=== PATIENT | female | born 1945 | race Caucasian/White ===

== ENCOUNTER → 2016-10-06 | Outpatient (REF) | payer OTHER ==
[~2016-10-06] MED LIST: /ALEN7SOL PO; /SUCR1TA PO; ALPR0.5T3 PO; AMOX500C; ASPI81TA31 OR; ATEN25TA PO; BABY81CH; BUTRANS TD; CALCIUM WITH VIT D; CALCIUM WITH VIT D PO; CHLO0.12 MT; CLOTPOW; EVOXAC; EVOXAC PO; FENT25DI22 TD; FERR324T5 PO; FIBEPOW PO; FOLI1TAB PO; FORT600S SC; GLUCOSAMINE PO; HYDR25TA6 PO; MAALOX PO; MELO7.5T3 PO; METH2.5T PO; MISOPROSTOL PO; MULTIVIT PO; NABU750T PO; NEUR300C OR; OMEGA 3 PO; OMEP20TA7; OXYB5TAB PO; PRESERVISION PO; PRIL20CA PO; SERT50TA2; SIMV40TA2; STOO100C PO; TYLE325T5 PO; VICO5TAB PO; VITA200028 PO; VITAMIN C PO; XANA0.25 PO; ZOCO40TA PO; ZOLO100T PO; [UNRECOGNIZED DRUG - OTHER]
[2016-10-06 20:37] LABS: ALBUMIN 3.7 GM/DL (3.2-5.2); CALCIUM LEVEL 8.4 MG/DL (8.8-10.2); CREATININE FOR GFR 0.98 MG/DL (0.55-1.02); GLOMERULAR FILTRATION RATE 59.4 (>39); MAGNESIUM LEVEL 2.3 MG/DL (1.8-2.4); POTASSIUM SERUM 4.2 MEQ/L (3.5-5.1)
== END ==
LOC: M LAB REF 17:24
PROVIDERS: ATTEND Physician Assistant
DX: I50.32 Chronic diastolic (congestive) heart failure (principal); I48.0 Paroxysmal atrial fibrillation

== ENCOUNTER → 2016-10-07 | Outpatient (CLI) | payer MEDICARE ==
--- NOTE | 2016-10-07 13:09 | REP ---
CHEST, TWO VIEWS: HISTORY: Hypertension. COMPARISON: 12/21/2013. An increase in interstitial markings is present in the lungs. A small area of atelectasis or infiltrate is present in the right upper lobe. The cardiac silhouette is enlarged. The pulmonary vasculature is prominent. A small hiatal hernia is present. The bony structure is intact. Two prosthetic heart valves are present. IMPRESSION: 1. Findings consistent with congestive heart failure. 2. There is a small area of atelectasis or infiltrate in the right upper lobe. 3. Small hiatal hernia.
== END ==
LOC: M CLY 11:19
PROVIDERS: ATTEND Family Medicine
DX: J98.11 Atelectasis (principal); K44.9 Diaphragmatic hernia without obstruction or gangrene; M06.9 Rheumatoid arthritis, unspecified; I10 Essential (primary) hypertension; R30.0 Dysuria
CPT/HCPCS: 71020; 81002; 87088; 87186; G0463

== ENCOUNTER → 2016-10-07 | Outpatient (CLI) | payer MEDICARE | LOC: M CLY 11:26 | PROVIDERS: ATTEND Family Medicine | DX: J06.9 Acute upper respiratory infection, unspecified (principal); I10 Essential (primary) hypertension ==

== ENCOUNTER → 2016-10-07 | Outpatient (REF) | payer MEDICARE | LOC: M SFHCCLAY 11:07 | PROVIDERS: ATTEND Family Medicine | DX: M06.9 Rheumatoid arthritis, unspecified (principal); I10 Essential (primary) hypertension; R30.0 Dysuria ==

== ENCOUNTER → 2016-10-14 | Outpatient (CLI) | payer MEDICARE | LOC: M CARPUL 09:59 | PROVIDERS: ATTEND Family Medicine | DX: M06.9 Rheumatoid arthritis, unspecified (principal) ==

== ENCOUNTER → 2016-10-22 | Outpatient (REF) | payer MEDICARE ==
[2016-10-22 18:26] LABS: ALBUMIN 3.8 GM/DL (3.2-5.2); CREATININE FOR GFR 1.08 MG/DL (0.55-1.02); GLOMERULAR FILTRATION RATE 53.1 (>39)
[2016-10-22 18:45] LABS: BASO % 0.3 % (0.0-1.0); EOS # 0.2 K/mm3 (0.0-0.50); EOS % 1.9 % (0.0-3.0); LYMPH # 0.7 K/mm3 (1.5-4.5); LYMPH % 8.9 % (24.0-44.0); MEAN CORPUSCULAR HEMOGLOBIN 31.4 pg (27.0-33.0); MEAN CORPUSCULAR HGB CONC 32.9 g/dl (32.0-36.5); MEAN CORPUSCULAR VOLUME 95.3 fl (80.0-96.0); MONO # 0.3 K/mm3 (0.0-0.8); MONO % 4.1 % (0.0-5.0); NEUTROPHILS # 6.8 K/mm3 (1.8-7.7); NEUTROPHILS % 83.5 % (36.0-66.0); RED CELL DISTRIBUTION WIDTH 13.5 % (11.5-14.5); WHITE BLOOD COUNT 8.2 K/mm3 (4.0-10.0)
== END ==
LOC: M LABDRAWC 16:16
PROVIDERS: ATTEND Physician Assistant Medical
DX: M05.79 Rheumatoid arthritis with rheumatoid factor of multiple sites without organ or systems involvement (principal); J18.9 Pneumonia, unspecified organism; G89.29 Other chronic pain
CPT/HCPCS: 36415; 80048; 82040; 82565; 84075; 84450; 84460; 84520; 85027; 85652; 86140; G0463

== ENCOUNTER → 2016-10-22 | Outpatient (REF) | payer MEDICARE ==
[2016-10-22 18:23] LABS: CALCIUM LEVEL 9.1 MG/DL (8.8-10.2); CREATININE FOR GFR 1.1 MG/DL (0.55-1.02); POTASSIUM SERUM 4.3 MEQ/L (3.5-5.1)
== END ==
LOC: M SFHCCLAY 16:14
PROVIDERS: ATTEND Family Medicine
DX: J18.9 Pneumonia, unspecified organism (principal)

== ENCOUNTER → 2016-11-05 | Outpatient (CLI) | payer MEDICARE ==
--- NOTE | 2016-11-05 13:11 | REP ---
Chest x-ray: Two views. History: Right lung pneumonia. Follow-up. Comparison study October 07, 2016. Findings: The previously noted right upper lobe infiltrate is improved. There is still some consolidation. There is slight blunting of the right lateral pleural angle unchanged. The patient is status post aortic and mitral valve replacement via median sternotomy. A hiatal hernia is again noted behind the heart. Mild cardiomegaly is observed. No infiltrate is noted on the left. A scoliotic curve is seen in the thoracic spine as before. Impression: Recently identified right upper lobe infiltrate is improved but not completely resolved radiographically. No new infiltrate is seen. The patient is status post cardiac valve replacement times two. Hiatal hernia.
== END ==
LOC: M CLY 11:15
PROVIDERS: ATTEND Family Medicine
DX: J18.9 Pneumonia, unspecified organism (principal); K44.9 Diaphragmatic hernia without obstruction or gangrene

== ENCOUNTER → 2016-12-02 | Outpatient (CLI) | payer MEDICARE ==
--- NOTE | 2016-12-02 10:37 | REP ---
Chest x-ray: Two views. History: Pneumonia on the right. Comparison study November 05, 2016. Findings: Patient is status post prior median sternotomy and coronary artery valve replacement. Hiatal hernia is seen behind the heart unchanged. Heart is not felt to be enlarged. Right hemidiaphragm is again noted to be somewhat elevated. There is coarse linear opacity in the right upper perihilar region and some linear fibrosis is seen in the right base and in the left base. These findings are unchanged. No new infiltrate is seen. Impression: No new infiltrate noted.
== END ==
LOC: M CLY 09:29
PROVIDERS: ATTEND Family Medicine
DX: J18.9 Pneumonia, unspecified organism (principal)
CPT/HCPCS: 71020; G0463

== ENCOUNTER → 2017-01-25 | Outpatient (REF) | payer MEDICARE ==
[2017-01-25 17:20] LABS: ALBUMIN 3.8 GM/DL (3.2-5.2); CALCIUM LEVEL 8.8 MG/DL (8.8-10.2); CREATININE FOR GFR 1.33 MG/DL (0.55-1.02); GLOMERULAR FILTRATION RATE 41.7 (>39); MAGNESIUM LEVEL 2.3 MG/DL (1.8-2.4); PHOSPHORUS LEVEL 4.3 MG/DL (2.5-4.9); POTASSIUM SERUM 4.2 MEQ/L (3.5-5.1)
== END ==
LOC: M LABDRAWC 16:34
PROVIDERS: ATTEND Physician Assistant
DX: I50.32 Chronic diastolic (congestive) heart failure (principal); I48.0 Paroxysmal atrial fibrillation

== ENCOUNTER → 2017-02-10 | Outpatient (CLI) | payer MEDICARE ==
[~2017-02-10] MED LIST changes: +ASPI81TA7 PO; +CALCCHW8 PO; +FIBE1CHW2 PO; +FOLI1TAB2 PO; +FURO1TAB15 PO; +GABA-279 PO; +HYDR-3713 PO; +HYDR200T3 PO; +LEUC5TA PO; +METH2.5TA PO; +MULTCAP11 PO; +OMEG340C PO; +OMEP40CA2 PO; +OXYB5TA PO; +PRESCAP PO; +SERT-138 PO; +VITA10006 PO
[2017-02-10 13:54] LABS: CALCIUM LEVEL 8.6 MG/DL (8.8-10.2); CREATININE FOR GFR 1.07 MG/DL (0.55-1.02); GLOMERULAR FILTRATION RATE 53.7 (>39); POTASSIUM SERUM 4.4 MEQ/L (3.5-5.1)
--- NOTE | 2017-02-10 15:00 | REP ---
Chest x-ray: Two views. History: Hypertension. CHF. Comparison chest x-ray: December 02, 2016. Findings: There is somewhat ill-defined linear density in the right upper perihilar region which is unchanged from the comparison radiograph as well as from a prior study of November 05, 2016. This may reflect pleuroparenchymal fibrosis. There is some fullness in the right paratracheal soft tissues also unchanged from prior studies dating back to December of 2013. The right hemidiaphragm is somewhat elevated and there is some linear fibrosis in each lung base. There is evidence of a moderate size hiatal hernia. The patient is status post prior median sternotomy and aortic as well as mitral valve prosthetic, components appear to be installed. Heart is mildly enlarged unchanged. There is no free pleural effusion seen. Impression: Prior sternotomy and cardiac valve replacement. Mild cardiomegaly. Hiatal hernia. Left base fibrosis right base pleuroparenchymal fibrosis. Right upper perihilar fibrosis seen. Signed by Burton Duarte MD 02/10/2017 04:35 P
--- NOTE | 2017-02-11 19:54 | ECGEPIP ---
Stationary ECG Study [facility] Test Date: 2017-02-10 Pat Name: TITO ERAZO Department: Room: - Gender: F Hog Room Supervisor: KALPANA : [id number] Requested By: Yvon Velazco Order Number: [id number] Reading MD: Ene Trotter Measurements Intervals [place] Rate: 80 P: 62 ME: 148 QRS: 33 QRSD: 88 T: 34 QT: 380 QTc: 440 Interpretive Statements SINUS RHYTHM LEFT ATRIAL ENLARGEMENT NONSPECIFIC T-WAVE ABNORMALITY SIMILAR 06/02/13 Electronically Signed On 02-11-2017 19:54:25 EDT by Ene Trotter
== END ==
LOC: M LAB 11:54
PROVIDERS: ATTEND Ophthalmology
DX: I50.9 Heart failure, unspecified (principal); I10 Essential (primary) hypertension

== ENCOUNTER → 2017-02-17 | Outpatient (REF) | payer MEDICARE ==
[2017-02-17 18:02] LABS: BASO % 0.3 % (0.0-1.0); EOS # 0.4 K/mm3 (0.0-0.50); EOS % 5.5 % (0.0-3.0); LYMPH # 1.2 K/mm3 (1.5-4.5); LYMPH % 16.9 % (24.0-44.0); MEAN CORPUSCULAR HEMOGLOBIN 32.2 pg (27.0-33.0); MEAN CORPUSCULAR HGB CONC 32.8 g/dl (32.0-36.5); MEAN CORPUSCULAR VOLUME 98.1 fl (80.0-96.0); MONO # 0.3 K/mm3 (0.0-0.8); MONO % 4.8 % (0.0-5.0); NEUTROPHILS # 4.5 K/mm3 (1.8-7.7); NEUTROPHILS % 70.9 % (36.0-66.0); RED CELL DISTRIBUTION WIDTH 13.7 % (11.5-14.5); WHITE BLOOD COUNT 6.4 K/mm3 (4.0-10.0)
[2017-02-17 18:36] LABS: ALBUMIN 3.3 GM/DL (3.2-5.2); CREATININE FOR GFR 1.15 MG/DL (0.55-1.02); GLOMERULAR FILTRATION RATE 49.4 (>39)
== END ==
LOC: M LABDRAWC 16:32
PROVIDERS: ATTEND Physician Assistant Medical
DX: M05.79 Rheumatoid arthritis with rheumatoid factor of multiple sites without organ or systems involvement (principal); Z79.899 Other long term (current) drug therapy; M51.37 Other intervertebral disc degeneration, lumbosacral region

== ENCOUNTER → 2017-02-25 | Day surgery (SDC) | payer MEDICARE ==
[~2017-02-25] VITALS: Ht 160 cm; Wt 74.8 kg
[~2017-02-25] MED LIST changes: +ACETYLCHOLINE OPHTH SOLN 1% 2ML (MIOCHOL-E) As Ordered ONE; +BALANCED SALT IRRIGATION SOLUTION 500ML BAG (FOR OR EYE MACHINE) As Ordered ONE; +CEFUROXIME 1MG/0.1ML INTRACAMERAL INJ As Ordered ONE; +D5W/0.2% SODIUM CHLORIDE 250 ML IV ONE; +HEALON DUET (HEALON 10MG/ML 0.55ML & HEALON ENDOCOAT 30MG/ML 0.85ML) As Ordered ONE; +LIDOCAINE 0.75%/EPINEPHRINE 0.025% IN BSS 1ML SYR INTRACAMERAL (OR ONLY) As Ordered ONE; +LIDOCAINE 4% INJ 5 ML AMP As Ordered ONE; +MIDAZOLAM INJ 2 MG/2 ML VIAL (J2250) As Ordered ONE; +OFLOXACIN 0.3 % (OCUFLOX) OPTH SOL 5ML OD ONE; +PHENYLEPHRINE 2.5% OPHTH SOL 2ML OD ONE; +POVIDONE-IODINE 5% OPHTH PREP SOL 30ML As Ordered ONE; +PROPARACAINE 0.5% OPHTH SOL 15ML OD ONE; +TOBRADEX OPHTH OINT 3.5 GM As Ordered ONE; +TROPICAMIDE 1% OPHTH SOLN 2ML OD ONE; +fentaNYL 100 MCG/2 ML INJECTION (J3010) As Ordered ONE
[2017-02-25 10:10] VITALS: BP 111/58
--- NOTE | 2017-02-26 10:56 | RO ---
DATE OF PROCEDURE: 02/25/2017 PREOPERATIVE DIAGNOSIS: Visually significant nuclear sclerotic cataract right eye. POSTOPERATIVE DIAGNOSIS: Visually significant nuclear sclerotic cataract right eye. PROCEDURE: Cataract extraction with use of phacoemulsification and placement of intraocular lens AU00TO, 22.5 diopter, right eye. SURGEON: Naun Nice DO DELIVERY ASSOCIATE: ANESTHESIA: Local with monitored anesthesia care (MAC). COMPLICATIONS: None. POSTOPERATIVE CONDITION: Stable. INDICATION FOR SURGERY: Blurred vision right eye affecting patient's activities of daily living. DESCRIPTION OF PROCEDURE: The patient was seen in the preoperative area and properly identified. The correct operative eye was identified and marked. Attention was turned to that eye. The patient received topical antibiotics in the preoperative area. The patient then received topical dilating drops consisting of tropicamide and phenylephrine. The patient was then transferred to the operating room. The correct side was reidentified. The patient received topical anesthetics and antibiotics on the surface of the eye. The eye was prepped and draped in a sterile fashion. The upper and lower eyelids were isolated with Tegaderm tape, and the lids were held open with an adjustable speculum. Using a sideport blade, a paracentesis incision was made. Intraocular preservative-free lidocaine was then injected into the anterior chamber. Viscoelastic was then injected into the anterior chamber through the paracentesis. Using a 2.65 mm sharp-tipped keratome, the anterior chamber was entered via a temporal clear corneal incision. A continuous curvilinear capsulorrhexis was created with the aid of a 26-gauge cystotome and Utrata forceps. Hydrodissection was performed with balanced salt solution (BSS) on a blunt cannula until the nucleus was freely mobile. The crystalline lens was phacoemulsified and aspirated. Additional cohesive viscoelastic was placed into the capsular bag to deepen it. An AU00TO 22.5 D lens was placed into the capsular bag and confirmed by visualizing the continuous curvilinear capsulorrhexis. Additional irrigation and aspiration was used to remove cortical material and remaining viscoelastic. The clear corneal incision was hydrated with BSS on a blunt cannula. The lens was well positioned. The incisions were then tested for leaks and found to be negative. The eye was then palpated for appropriate pressure and adjusted accordingly with BSS. The eyelid speculum was then carefully removed. Tobradex ointment was placed in the eye. An eye patch and shield were then secured over the eye. The patient tolerated the procedure well and was discharged to the recovery unit in a stable condition. JARAD
== END | disposition home or self-care (01) ==
LOC: M SDC 07:49
PROVIDERS: ATTEND Ophthalmology
DX: H25.11 Age-related nuclear cataract, right eye (principal); I11.0 Hypertensive heart disease with heart failure; I50.9 Heart failure, unspecified; R23.3 Spontaneous ecchymoses; R29.898 Other symptoms and signs involving the musculoskeletal system; M06.9 Rheumatoid arthritis, unspecified; F32.9 Major depressive disorder, single episode, unspecified; Z79.899 Other long term (current) drug therapy; Z79.82 Long term (current) use of aspirin; Z87.81 Personal history of (healed) traumatic fracture; Z87.891 Personal history of nicotine dependence; Z96.641 Presence of right artificial hip joint
CPT/HCPCS: 66984; J2250; J3010; V2632

== ENCOUNTER → 2017-03-11 | Day surgery (SDC) | payer MEDICARE ==
[~2017-03-11] VITALS: Ht 160 cm; Wt 71.7 kg
[~2017-03-11] MED LIST changes: -D5W/0.2% SODIUM CHLORIDE 250 ML IV ONE; +LR 500 ML IV SCH; -OFLOXACIN 0.3 % (OCUFLOX) OPTH SOL 5ML OD ONE; +OFLOXACIN 0.3 % (OCUFLOX) OPTH SOL 5ML OS ONE; -PHENYLEPHRINE 2.5% OPHTH SOL 2ML OD ONE; +PHENYLEPHRINE 2.5% OPHTH SOL 2ML OS ONE; -PROPARACAINE 0.5% OPHTH SOL 15ML OD ONE; +PROPARACAINE 0.5% OPHTH SOL 15ML OS ONE; -TROPICAMIDE 1% OPHTH SOLN 2ML OD ONE; +TROPICAMIDE 1% OPHTH SOLN 2ML OS ONE; -fentaNYL 100 MCG/2 ML INJECTION (J3010) As Ordered ONE
[2017-03-11 08:25] VITALS: BP 110/60
--- NOTE | 2017-03-11 18:03 | RO ---
DATE OF PROCEDURE: 03/11/2017 PREOPERATIVE DIAGNOSIS: Visually significant nuclear sclerotic cataract left eye. POSTOPERATIVE DIAGNOSIS: Visually significant nuclear sclerotic cataract left eye. PROCEDURE: Cataract extraction with use of phacoemulsification, and placement of intraocular lens, AU00T0 21.5D , left eye. SURGEON: Naun Nice DO BLOCK CUTTER: ANESTHESIA: Local with monitored anesthesia care (MAC). COMPLICATIONS: None. POSTOPERATIVE CONDITION: Stable. INDICATION FOR SURGERY: Blurred vision left eye affecting patient's activities of daily living. DESCRIPTION OF PROCEDURE: The patient was seen in the preoperative area and properly identified. The correct operative eye was identified and marked. Attention was turned to that eye. The patient received topical antibiotics in the preoperative area. The patient then received topical dilating drops consisting of Tropicamide and Phenylephrine. The patient was then transferred to the operating room. The correct side was re-identified. The patient received topical anesthetics and antibiotics on the surface of the eye. The eye was prepped and draped in a sterile fashion. The upper and lower eyelids were isolated with Tegaderm tape, and the lids were held open with an adjustable speculum. Using a sideport blade, a paracentesis incision was made. Intraocular preservative-free lidocaine was then injected into the anterior chamber. Viscoelastic was then injected into the anterior chamber through the paracentesis. Using a 2.65 mm sharp-tipped keratome, the anterior chamber was entered via a temporal clear corneal incision. A continuous curvilinear capsulorrhexis was created with the aid of a 26g cystotome and utrata forceps. Hydrodissection was performed with balanced salt solution (BSS) on a blunt cannula until the nucleus was freely mobile. The crystalline lens was phacoemulsified and aspirated. Additional cohesive viscoelastic was placed into the capsular bag to deepen it. A AU00T0 21.5D lens D was placed into the capsular bag and confirmed by visualizing the continuous curvilinear capsulorrhexis. Additional irrigation and aspiration was used to remove cortical material and remaining viscoelastic. The clear corneal incision was hydrated with BSS on a blunt cannula. The lens was well positioned. The incisions were then tested for leaks and found to be negative. The eye was then palpated for appropriate pressure and adjusted accordingly with BSS. The eyelid speculum was carefully removed. A shield was then secured over the eye. The patient tolerated the procedure well and was discharged to the recovery unit in a stable condition. JARAD
== END | disposition home or self-care (01) ==
LOC: M SDC 05:49
PROVIDERS: ATTEND Ophthalmology
DX: H25.12 Age-related nuclear cataract, left eye (principal); I11.0 Hypertensive heart disease with heart failure; R23.3 Spontaneous ecchymoses; R29.898 Other symptoms and signs involving the musculoskeletal system; M06.9 Rheumatoid arthritis, unspecified; F32.9 Major depressive disorder, single episode, unspecified; Z79.899 Other long term (current) drug therapy; Z79.82 Long term (current) use of aspirin; Z87.81 Personal history of (healed) traumatic fracture; Z95.4 Presence of other heart-valve replacement; Z96.641 Presence of right artificial hip joint; Z87.891 Personal history of nicotine dependence
CPT/HCPCS: 66984; J2250; V2632

== ENCOUNTER → 2017-05-31 | Outpatient (CLI) | payer MEDICARE ==
[~2017-05-31] MED LIST changes: -ACETYLCHOLINE OPHTH SOLN 1% 2ML (MIOCHOL-E) As Ordered ONE; +ASPI1TAB15 PO; -ASPI81TA7 PO; -BALANCED SALT IRRIGATION SOLUTION 500ML BAG (FOR OR EYE MACHINE) As Ordered ONE; -CEFUROXIME 1MG/0.1ML INTRACAMERAL INJ As Ordered ONE; -FOLI1TAB2 PO; +FOLI1TAB4 PO; -FURO1TAB15 PO; +FURO80TA2 PO; -HEALON DUET (HEALON 10MG/ML 0.55ML & HEALON ENDOCOAT 30MG/ML 0.85ML) As Ordered ONE; -LIDOCAINE 0.75%/EPINEPHRINE 0.025% IN BSS 1ML SYR INTRACAMERAL (OR ONLY) As Ordered ONE; -LIDOCAINE 4% INJ 5 ML AMP As Ordered ONE; -LR 500 ML IV SCH; -MIDAZOLAM INJ 2 MG/2 ML VIAL (J2250) As Ordered ONE; -OFLOXACIN 0.3 % (OCUFLOX) OPTH SOL 5ML OS ONE; -OXYB5TA PO; +OXYB5TAB10 PO; -PHENYLEPHRINE 2.5% OPHTH SOL 2ML OS ONE; -POVIDONE-IODINE 5% OPHTH PREP SOL 30ML As Ordered ONE; -PROPARACAINE 0.5% OPHTH SOL 15ML OS ONE; -TOBRADEX OPHTH OINT 3.5 GM As Ordered ONE; -TROPICAMIDE 1% OPHTH SOLN 2ML OS ONE
--- NOTE | 2017-05-31 15:35 | REPMRS ---
Patient History The patient states she has not had a clinical breast exam in over a year. Patient is postmenopausal. No known family history of cancer. Took hormonal contraceptives for 2 years. Digital Woman Screen Mammo: May 31, 2017 - Exam #: [id number] Bilateral CC and MLO view(s) were taken. Technologist: Jocelynn Chandra, Technologist Prior study comparison: May 28, 2016, digital woman screen mammo performed at [facility]. April 30, 2015, digital woman screen mammo performed at [facility]. March 28, 2014, bilateral bilat screen digital mammo, performed at [facility] ([facility]). FINDINGS: The breast tissue is almost entirely fat. There has been no change in the appearance of the mammogram from the prior studies. There is no interval development of dominant mass, architectural distortion, or clustered microcalcification typical of malignancy. ASSESSMENT: BI-RADS/ACR category 1 mammogram. Negative. Recommendation Routine screening mammogram of both breasts in 1 year (for women over age 40). This mammogram was interpreted with the aid of an FDA-approved computer-aided dectection system. Electronically Signed By: Hernan Duarte MD 05/31/17 [id number]
== END ==
LOC: M WHC 14:18
PROVIDERS: ATTEND Family Medicine
DX: Z12.31 Encounter for screening mammogram for malignant neoplasm of breast (principal)

== ENCOUNTER → 2017-06-21 | Outpatient (REF) | payer MEDICARE ==
[2017-06-21 17:59] LABS: ALBUMIN 3.6 GM/DL (3.2-5.2); ALKALINE PHOSPHATASE 58 U/L (45-117); ALT/SGPT 24 U/L (12-78); AST/SGOT 20 U/L (15-37); BLOOD UREA NITROGEN 25 MG/DL (7-18); CREATININE FOR GFR 1.15 MG/DL (0.55-1.02); GLOMERULAR FILTRATION RATE 49.2 (>39)
[2017-06-21 19:12] LABS: BASO % 0.5 % (0.0-1.0); EOS # 0.3 K/mm3 (0.0-0.50); EOS % 4.7 % (0.0-3.0); LYMPH # 1.2 K/mm3 (1.5-4.5); MEAN CORPUSCULAR HEMOGLOBIN 32.5 pg (27.0-33.0); MEAN CORPUSCULAR HGB CONC 33.3 g/dl (32.0-36.5); MEAN CORPUSCULAR VOLUME 97.5 fl (80.0-96.0); MONO # 0.4 K/mm3 (0.0-0.8); MONO % 5.3 % (0.0-5.0); NEUTROPHILS # 4.6 K/mm3 (1.8-7.7); NEUTROPHILS % 70.5 % (36.0-66.0); RED CELL DISTRIBUTION WIDTH 14.5 % (11.5-14.5); WHITE BLOOD COUNT 6.5 K/mm3 (4.0-10.0)
== END ==
LOC: M LABDRAWC 16:15
PROVIDERS: ATTEND Physician Assistant Medical
DX: M05.79 Rheumatoid arthritis with rheumatoid factor of multiple sites without organ or systems involvement (principal)

== ENCOUNTER → 2017-08-30 | Outpatient (REF) | payer MEDICARE ==
[2017-08-30 17:32] LABS: ALBUMIN 3.6 GM/DL (3.2-5.2); CALCIUM LEVEL 9.2 MG/DL (8.8-10.2); CREATININE FOR GFR 1.23 MG/DL (0.55-1.02); GLOMERULAR FILTRATION RATE 45.6 (>39); MAGNESIUM LEVEL 2.3 MG/DL (1.8-2.4); PHOSPHORUS LEVEL 4.6 MG/DL (2.5-4.9); POTASSIUM SERUM 4.1 MEQ/L (3.5-5.1)
== END ==
LOC: M LAB REF 16:26 → M LABDRAWC 16:26
PROVIDERS: ATTEND Physician Assistant
DX: I50.32 Chronic diastolic (congestive) heart failure (principal); I48.0 Paroxysmal atrial fibrillation

== ENCOUNTER → 2017-10-15 | Outpatient (REF) | payer MEDICARE ==
[2017-10-15 17:53] LABS: BASO % 0.5 % (0.0-1.0); EOS # 0.3 10^3/uL (0.0-0.50); EOS % 3.8 % (0.0-3.0); HEMATOCRIT 37.7 % (36.0-47.0); HEMOGLOBIN 12.2 g/dl (12.0-16.0); IMMATURE GRANULOCYTE % 0.3 % (0-0); LYMPH # 0.7 10^3/uL (1.5-4.5); MEAN CORPUSCULAR HEMOGLOBIN 32.5 pg (27.0-33.0); MEAN CORPUSCULAR HGB CONC 32.4 g/dl (32.0-36.5); MEAN CORPUSCULAR VOLUME 100.5 fl (80.0-96.0); MONO # 0.5 10^3/uL (0.0-0.8); MONO % 8.1 % (0.0-5.0); NEUTROPHILS % 76.3 % (36.0-66.0); PLATELET COUNT, AUTOMATED 185 10^3/uL (150-450); RED BLOOD COUNT 3.75 10^6/uL (4.00-5.40); RED CELL DISTRIBUTION WIDTH 13.9 % (11.5-14.5); WHITE BLOOD COUNT 6.5 10^3/uL (4.0-10.0)
[2017-10-15 18:03] LABS: BLOOD UREA NITROGEN 31 MG/DL (7-18)
[2017-10-15 18:03] LABS: ALBUMIN 3.8 GM/DL (3.2-5.2); ALKALINE PHOSPHATASE 62 U/L (45-117); ALT/SGPT 22 U/L (12-78); AST/SGOT 27 U/L (7-37); C REACTIVE PROTEIN QUANTITATIV < 0.30 MG/DL (0.00-0.30); CREATININE FOR GFR 1.04 MG/DL (0.55-1.02); GLOMERULAR FILTRATION RATE 55.3 (>39)
[2017-10-15 18:48] LABS: ERYTHROCYTE SEDIMENTATION RATE 16 mm/hr (0-30)
== END ==
LOC: M LABDRAWC 16:17
DX: M05.79 Rheumatoid arthritis with rheumatoid factor of multiple sites without organ or systems involvement (principal)
CPT/HCPCS: 84460

== ENCOUNTER → 2018-02-03 | Outpatient (REF) | payer MEDICARE ==
[2018-02-03 19:21] LABS: BASO % 0.4 % (0.0-1.0); EOS # 0.2 10^3/uL (0.0-0.50); EOS % 3.2 % (0.0-3.0); HEMATOCRIT 38.1 % (36.0-47.0); HEMOGLOBIN 12.3 g/dl (12.0-15.5); IMMATURE GRANULOCYTE % 0.1 % (0-3.0); LYMPH # 0.8 10^3/uL (1.5-4.5); LYMPH % 10.2 % (24.0-44.0); MEAN CORPUSCULAR HEMOGLOBIN 32.2 pg (27.0-33.0); MEAN CORPUSCULAR HGB CONC 32.3 g/dl (32.0-36.5); MEAN CORPUSCULAR VOLUME 99.7 fl (80.0-96.0); MONO # 0.4 10^3/uL (0.0-0.8); MONO % 5.5 % (0.0-5.0); NEUTROPHILS # 6.1 10^3/uL (1.8-7.7); NEUTROPHILS % 80.6 % (36.0-66.0); PLATELET COUNT, AUTOMATED 212 10^3/uL (150-450); RED BLOOD COUNT 3.82 10^6/uL (4.00-5.40); RED CELL DISTRIBUTION WIDTH 14.3 % (11.5-14.5); WHITE BLOOD COUNT 7.5 10^3/uL (4.0-10.0)
[2018-02-03 19:34] LABS: ALBUMIN 3.6 GM/DL (3.2-5.2); ALT/SGPT 18 U/L (12-78); AST/SGOT 24 U/L (7-37); C REACTIVE PROTEIN QUANTITATIV < 0.30 MG/DL (0.00-0.30); CREATININE FOR GFR 1.07 MG/DL (0.55-1.30); GLOMERULAR FILTRATION RATE 53.5 (>39)
[2018-02-03 19:34] LABS: BLOOD UREA NITROGEN 24 MG/DL (7-18)
[2018-02-03 19:41] LABS: ERYTHROCYTE SEDIMENTATION RATE 8 mm/hr (0-30)
== END ==
LOC: M LABDRAWC 18:25
DX: M05.79 Rheumatoid arthritis with rheumatoid factor of multiple sites without organ or systems involvement (principal)
CPT/HCPCS: 84460

== ENCOUNTER → 2018-02-15 | Outpatient (REF) | payer MEDICARE ==
[2018-02-15 17:31] LABS: ALBUMIN 3.6 GM/DL (3.2-5.2); ALBUMIN/GLOBULIN RATIO 1.06 (1.00-1.93); ALKALINE PHOSPHATASE 58 U/L (45-117); ALT/SGPT 19 U/L (12-78); ANION GAP 6 MEQ/L (8-16); AST/SGOT 26 U/L (7-37); BILIRUBIN,TOTAL 0.4 MG/DL (0.2-1.0); BLOOD UREA NITROGEN 27 MG/DL (7-18); CALCIUM LEVEL 8.6 MG/DL (8.8-10.2); CARBON DIOXIDE LEVEL 32 MEQ/L (21-32); CHLORIDE LEVEL 104 MEQ/L (98-107); CREATININE FOR GFR 1.06 MG/DL (0.55-1.30); GLOMERULAR FILTRATION RATE 54.1 (>39); GLUCOSE, FASTING 95 MG/DL (70-100); POTASSIUM SERUM 3.9 MEQ/L (3.5-5.1); SODIUM LEVEL 142 MEQ/L (136-145); THYROID STIMULATING HORMONE 0.998 uIU/ML (0.358-3.740)
[2018-02-15 17:56] LABS: HEMATOCRIT 36.5 % (36.0-47.0); HEMOGLOBIN 11.7 g/dl (12.0-15.5); MEAN CORPUSCULAR HEMOGLOBIN 32.1 pg (27.0-33.0); MEAN CORPUSCULAR HGB CONC 32.1 g/dl (32.0-36.5); MEAN CORPUSCULAR VOLUME 100.3 fl (80.0-96.0); PLATELET COUNT, AUTOMATED 215 10^3/uL (150-450); RED BLOOD COUNT 3.64 10^6/uL (4.00-5.40); RED CELL DISTRIBUTION WIDTH 13.9 % (11.5-14.5); WHITE BLOOD COUNT 7.6 10^3/uL (4.0-10.0)
== END ==
LOC: M SFHCCLAY 13:05
DX: M06.9 Rheumatoid arthritis, unspecified (principal); G89.29 Other chronic pain; I83.10 Varicose veins of unspecified lower extremity with inflammation; Z12.11 Encounter for screening for malignant neoplasm of colon
CPT/HCPCS: 84443

== ENCOUNTER → 2018-03-04 | Outpatient (REF) | payer MEDICARE ==
[2018-03-04 18:55] LABS: ALBUMIN 3.7 GM/DL (3.2-5.2); ANION GAP 2 MEQ/L (8-16); BLOOD UREA NITROGEN 25 MG/DL (7-18); CALCIUM LEVEL 8.8 MG/DL (8.8-10.2); CARBON DIOXIDE LEVEL 34 MEQ/L (21-32); CHLORIDE LEVEL 103 MEQ/L (98-107); CREATININE FOR GFR 1.23 MG/DL (0.55-1.30); GLOMERULAR FILTRATION RATE 45.6 (>39); GLUCOSE, FASTING 98 MG/DL (70-100); PHOSPHORUS LEVEL 4.4 MG/DL (2.5-4.9); POTASSIUM SERUM 4.5 MEQ/L (3.5-5.1); SODIUM LEVEL 139 MEQ/L (136-145)
== END ==
LOC: M LABDRAWC 17:50
DX: I50.32 Chronic diastolic (congestive) heart failure (principal)
CPT/HCPCS: 80069

== ENCOUNTER → 2018-06-07 | Outpatient (REF) | payer MEDICARE ==
[2018-06-07 19:46] LABS: ANION GAP 9 MEQ/L (8-16); BLOOD UREA NITROGEN 27 MG/DL (7-18); CALCIUM LEVEL 9.1 MG/DL (8.8-10.2); CARBON DIOXIDE LEVEL 30 MEQ/L (21-32); CHLORIDE LEVEL 102 MEQ/L (98-107); CREATININE FOR GFR 1.34 MG/DL (0.55-1.30); GLOMERULAR FILTRATION RATE 41.2 (>39); GLUCOSE, FASTING 103 MG/DL (70-100); POTASSIUM SERUM 3.7 MEQ/L (3.5-5.1); SODIUM LEVEL 141 MEQ/L (136-145)
== END ==
LOC: M LABDRAWC 18:46
DX: I50.32 Chronic diastolic (congestive) heart failure (principal)

== ENCOUNTER → 2018-06-07 | Outpatient (REF) | payer MEDICARE ==
[2018-06-07 19:20] LABS: BASO % 0.3 % (0.0-1.0); HEMATOCRIT 39.3 % (36.0-47.0); HEMOGLOBIN 13.1 g/dl (12.0-15.5); IMMATURE GRANULOCYTE % 0.3 % (0-3.0); LYMPH % 14.8 % (24.0-44.0); MEAN CORPUSCULAR HEMOGLOBIN 33.2 pg (27.0-33.0); MEAN CORPUSCULAR HGB CONC 33.3 g/dl (32.0-36.5); MEAN CORPUSCULAR VOLUME 99.7 fl (80.0-96.0); MONO # 0.5 10^3/uL (0.0-0.8); MONO % 8.1 % (0.0-5.0); NEUTROPHILS % 76.5 % (36.0-66.0); PLATELET COUNT, AUTOMATED 215 10^3/uL (150-450); RED BLOOD COUNT 3.94 10^6/uL (4.00-5.40); WHITE BLOOD COUNT 6.5 10^3/uL (4.0-10.0)
[2018-06-07 19:47] LABS: ALBUMIN 3.9 GM/DL (3.2-5.2); ALT/SGPT 23 U/L (12-78); AST/SGOT 29 U/L (7-37); C REACTIVE PROTEIN QUANTITATIV < 0.30 MG/DL (0.00-0.30); CREATININE FOR GFR 1.37 MG/DL (0.55-1.30); GLOMERULAR FILTRATION RATE 40.1 (>39)
[2018-06-07 20:05] LABS: ERYTHROCYTE SEDIMENTATION RATE 13 mm/hr (0-30)
== END ==
LOC: M LABDRAWC 18:39
DX: M05.79 Rheumatoid arthritis with rheumatoid factor of multiple sites without organ or systems involvement (principal); G90.09 Other idiopathic peripheral autonomic neuropathy; Z51.81 Encounter for therapeutic drug level monitoring; Z79.899 Other long term (current) drug therapy

== ENCOUNTER → 2018-06-07 | Outpatient (CLI) | payer MEDICARE | LOC: M WHC 10:54 | DX: Z12.31 Encounter for screening mammogram for malignant neoplasm of breast (principal); I50.32 Chronic diastolic (congestive) heart failure; M05.79 Rheumatoid arthritis with rheumatoid factor of multiple sites without organ or systems involvement; G90.09 Other idiopathic peripheral autonomic neuropathy; Z51.81 Encounter for therapeutic drug level monitoring; Z79.899 Other long term (current) drug therapy; Z92.0 Personal history of contraception | CPT/HCPCS: 84460 ==

== ENCOUNTER → 2018-07-13 | Outpatient (REF) | payer MEDICARE ==
[2018-07-13 12:51] LABS: ALBUMIN 3.6 GM/DL (3.2-5.2); ANION GAP 6 MEQ/L (8-16); BLOOD UREA NITROGEN 17 MG/DL (7-18); CALCIUM LEVEL 8.9 MG/DL (8.8-10.2); CARBON DIOXIDE LEVEL 34 MEQ/L (21-32); CHLORIDE LEVEL 106 MEQ/L (98-107); CREATININE FOR GFR 1.05 MG/DL (0.55-1.30); GLOMERULAR FILTRATION RATE 54.5 (>39); GLUCOSE, FASTING 82 MG/DL (70-100); PHOSPHORUS LEVEL 3.9 MG/DL (2.5-4.9); SODIUM LEVEL 146 MEQ/L (136-145)
== END ==
LOC: M SFHCCLAY 09:21
DX: I10 Essential (primary) hypertension (principal)
CPT/HCPCS: 80069

== ENCOUNTER → 2018-10-27 | Outpatient (REF) | payer MEDICARE ==
[~2018-10-27] MED LIST changes: +FOLI1TAB11 PO; -FOLI1TAB4 PO; +GABA-1171 PO; -GABA-279 PO; +METH2.5T48 PO; -METH2.5TA PO
[2018-10-27 18:17] LABS: CALCIUM LEVEL 8.7 MG/DL (8.8-10.2); CREATININE FOR GFR 1.11 MG/DL (0.55-1.30); GLOMERULAR FILTRATION RATE 51.2 (>39); POTASSIUM SERUM 3.6 MEQ/L (3.5-5.1)
== END ==
LOC: M LABDRAWC 16:19
PROVIDERS: ATTEND Physician Assistant
DX: I50.32 Chronic diastolic (congestive) heart failure (principal)

== ENCOUNTER → 2018-10-27 | Outpatient (CLI) | payer MEDICARE ==
--- NOTE | 2018-10-27 17:13 | REP ---
Left hip: Two views: History: Hip pain. History of a fall from bed 2 days ago. Findings: AP and frog-leg views of the left hip show diffuse osteopenia. No fracture or subluxation is seen. Impression: No fracture seen.
--- NOTE | 2018-10-27 17:21 | REP ---
Pelvis right hip: Three views. History: Injury in a fall. There are no comparison radiographs. Findings: AP view of the pelvis shows an intact bony pelvic ring. No acute pelvic fracture or sacral fracture is seen. Visualized bowel gas pattern is normal. AP and frog-leg views of the right hip demonstrate that the patient is status post right hip arthroplasty. In addition, there is a laterally applied screw plate fixation device along the lateral aspect of the proximal and mid femur. There is evidence of a healed fracture at the tip of the femoral stem of the prosthesis. There are metal fatigue fractures in the three proximal anchoring screws for the laterally affixed screw-plate device. There is chronic periosteal reaction along the undersurface of this fixation device suggesting that this is a chronic finding. There is a partial radiolucency in the lateral cortex at the tip of the femoral stem prosthesis. The distal end of the fixation plate is not included in the field of view. There is vascular calcification. Impression: No definite acute fracture. Findings somewhat challenging to evaluate in the absence of prior radiographs. There are metal fatigue type fractures in the three proximal anchoring screws associated with a laterally applied plate fixation device but adjacent to this are chronic reactive changes. Status post right hip arthroplasty.
--- NOTE | 2018-10-27 17:30 | REP ---
Lumbar spine series: Three views. History: Lumbar pain. Findings: There is a severe levoconvex scoliotic curvature in the lumbar spine. There is straightening of the normal lumbar lordosis. Lumbar vertebral body heights are preserved. There is diffuse degenerative disc disease at each level. There is a grade 2, 11 mm, degenerative L5-S1 spondylolisthesis. I cannot determine if there is a pars defect from the available films. Sacrum and SI joints are intact. No bony destructive lesion is appreciated. Impression: Advanced degenerative spondylosis changes. Severe levoconvex scoliotic curvature. Grade 2 L5-S1 degenerative appearing spondylolisthesis, 11 mm.
--- NOTE | 2018-10-27 17:31 | REP ---
Left rib series: Four views. History: Rib pain. Comparison study February 10, 2017. Findings: There is a zone of linear fibrosis in the left base which is unchanged from the February 10, 2017 prior study. The patient is status post median sternotomy and two cardiac valve replacements. A hiatal hernia is seen. There is diffuse osteoporosis. Multiple views of the left ribcage show no definite rib fracture or bony destructive lesion. There is mild osteoarthritic spurring at the glenohumeral articulation. Impression: No rib fracture or bony destructive lesion seen. Electronically Signed by Burton Duarte MD 10/27/2018 05:32 P
== END ==
LOC: M CLY 14:28
PROVIDERS: ATTEND Family Medicine
DX: M41.26 Other idiopathic scoliosis, lumbar region (principal); M51.37 Other intervertebral disc degeneration, lumbosacral region; M43.17 Spondylolisthesis, lumbosacral region; M85.88 Other specified disorders of bone density and structure, other site; K44.9 Diaphragmatic hernia without obstruction or gangrene; M25.552 Pain in left hip; W19.XXXA Unspecified fall, initial encounter; R07.81 Pleurodynia; M54.5 Low back pain

== ENCOUNTER → 2018-10-27 | Outpatient (REF) | payer MEDICARE ==
[2018-10-27 18:20] LABS: ALBUMIN 3.4 GM/DL (3.2-5.2); C REACTIVE PROTEIN QUANTITATIV 5.21 MG/DL (0.00-0.30); CREATININE FOR GFR 1.13 MG/DL (0.55-1.30); GLOMERULAR FILTRATION RATE 50.1 (>39)
[2018-10-27 18:21] LABS: BASO % 0.2 % (0.0-1.0); EOS # 0.1 10^3/uL (0.0-0.50); EOS % 1.3 % (0.0-3.0); HEMOGLOBIN 11.6 g/dl (12.0-15.5); LYMPH # 0.8 10^3/uL (1.5-4.5); MEAN CORPUSCULAR HEMOGLOBIN 30.8 pg (27.0-33.0); MEAN CORPUSCULAR HGB CONC 31.4 g/dl (32.0-36.5); MEAN CORPUSCULAR VOLUME 98.1 fl (80.0-96.0); MONO # 0.7 10^3/uL (0.0-0.8); MONO % 6.7 % (0.0-5.0); NEUTROPHILS # 8.8 10^3/uL (1.8-7.7); NEUTROPHILS % 83.3 % (36.0-66.0); PLATELET COUNT, AUTOMATED 234 10^3/uL (150-450); RED BLOOD COUNT 3.77 10^6/uL (4.00-5.40); WHITE BLOOD COUNT 10.5 10^3/uL (4.0-10.0)
[2018-10-27 19:02] LABS: ERYTHROCYTE SEDIMENTATION RATE 43 mm/hr (0-30)
== END ==
LOC: M LABDRAWC 16:21
PROVIDERS: ATTEND Physician Assistant Medical
DX: M05.79 Rheumatoid arthritis with rheumatoid factor of multiple sites without organ or systems involvement (principal); Z79.899 Other long term (current) drug therapy; M51.37 Other intervertebral disc degeneration, lumbosacral region

== ENCOUNTER → 2019-01-02 | Outpatient (CLI) | payer MEDICARE ==
[~2019-01-02] MED LIST changes: -/SUCR1TA PO; +SUCR1TAB56 PO
--- NOTE | 2019-01-02 16:21 | REP ---
Clinical: Pain. Technique: AP, inlet view, and lateral view of the sacrum. Findings: Chronic-appearing cortical irregularity involving the distal sacrum and coccyx is suggested. No obvious acute sacrococcygeal fracture appreciated. Impression: No obvious acute sacrococcygeal fracture appreciated. Electronically Signed by Jasiel Vanegas MD 01/02/2019 04:12 P
== END ==
LOC: M RAD 15:22
PROVIDERS: ATTEND Surgery
DX: R10.2 Pelvic and perineal pain (principal)

== ENCOUNTER → 2019-02-13 | Outpatient (REF) | payer MEDICARE ==
[2019-02-14 11:49] LABS: BASO % 0.4 % (0.0-1.0); HEMATOCRIT 35.8 % (36.0-47.0); HEMOGLOBIN 11.2 g/dl (12.0-15.5); LYMPH # 1.3 10^3/uL (1.5-4.5); LYMPH % 18.9 % (24.0-44.0); MEAN CORPUSCULAR HGB CONC 31.3 g/dl (32.0-36.5); MEAN CORPUSCULAR VOLUME 102.3 fl (80.0-96.0); MONO # 0.5 10^3/uL (0.0-0.8); MONO % 6.4 % (0.0-5.0); NEUTROPHILS # 5.2 10^3/uL (1.8-7.7); PLATELET COUNT, AUTOMATED 227 10^3/uL (150-450)
[2019-02-14 11:58] LABS: ALBUMIN 3.9 GM/DL (3.2-5.2); ALT/SGPT 27 U/L (12-78); C REACTIVE PROTEIN QUANTITATIV < 0.30 MG/DL (0.00-0.30); CREATININE FOR GFR 1.15 MG/DL (0.55-1.30); GLOMERULAR FILTRATION RATE 49.1 (>39)
[2019-02-14 12:17] LABS: ERYTHROCYTE SEDIMENTATION RATE 15 mm/hr (0-30)
== END ==
LOC: M LABDRAWC 11:18
PROVIDERS: ATTEND Physician Assistant Medical
DX: M05.79 Rheumatoid arthritis with rheumatoid factor of multiple sites without organ or systems involvement (principal)

== ENCOUNTER → 2019-04-03 | Outpatient (REF) | payer MEDICARE ==
[~2019-04-03] MED LIST changes: +MM S100C PO
[2019-04-04 12:23] LABS: CALCIUM LEVEL 9.5 MG/DL (8.8-10.2); CREATININE FOR GFR 1.24 MG/DL (0.55-1.30)
== END ==
LOC: M LABDRAWC 11:19
PROVIDERS: ATTEND Physician Assistant
DX: I50.32 Chronic diastolic (congestive) heart failure (principal)

== ENCOUNTER → 2019-04-19 | Outpatient (CLI) | payer MEDICARE ==
--- NOTE | 2019-04-19 15:43 | REP ---
High-resolution CT of the chest without IV contrast including scanning at end inspiration and repeat scanning and expiration. Comparisons are the chest CT dated 06/02/2013 and PA and lateral views of the chest dated 12/02/2016. The patient has known sternotomy and cardiac valve replacements. There is diffuse mild interstitial thickening that does not change on inspiration or expiration, compatible with interstitial fibrosis. There is a focal zone of increased density anteriorly/inferiorly in the right upper lobe that does not change on inspiration or expiration and is unchanged from the prior study, compatible with chronic focal parenchymal scarring. There is a 1 cm nodule peripherally in the left upper lobe on image 123 of the inspiration study and image 118 of the expiration study measuring 6 mm in diameter, not present previously. There is borderline bronchiectasis. There are no focal infiltrates or pleural effusions. There is no mediastinal or axillary adenopathy. The study is insensitive for hilar adenopathy in the absence of IV contrast. Thoracic aorta is unremarkable. Cardiac size is enlarged. There is no pericardial effusion. There is a 5.7 cm hiatal hernia. In the upper abdomen I suspect there are multiple tiny gallbladder calculi layering in the dependent portion of the gallbladder near the neck. The visualized hepatic parenchyma, pancreas and spleen are unremarkable. There is no adrenal mass. Impression: Focal zone of chronic interstitial thickening in the right upper lobe, unchanged from the prior CT, compatible with parenchymal scar. Diffuse bilateral interstitial thickening compatible with interstitial fibrosis. 6 mm right upper lobe lung nodule, not present on the prior CT. Borderline bronchiectasis. No acute infiltrate or pleural effusion. Electronically Signed by Sidney Aguirre MD 04/19/2019 03:34 P
== END ==
LOC: M RAD 13:02
PROVIDERS: ATTEND Internal Medicine Pulmonary Disease
DX: R91.8 Other nonspecific abnormal finding of lung field (principal)

== ENCOUNTER → 2019-05-03 | Outpatient (REF) | payer MEDICARE ==
[2019-05-03 18:49] LABS: C REACTIVE PROTEIN QUANTITATIV 0.84 MG/DL (0.00-0.30)
[2019-05-09 00:07] LABS: ANCA-ATYPICAL <1:20 titer (Neg:<1:20); ANGIOTENSIN 1 CONVERTING ENZYM 65 U/L (14-82); ANTI JO-1 ANTIBODIES <0.2 AI (0.0-0.9); ANTINUCLEAR ANTIBODIES DIRECT Negative (Negative); ASPERGILLUS FUMIGATUS AB Negative (Negative); AUREOBASIDIUM PULLULANS Negative (Negative); CYCLIC CITRULLINATED PEPTIDE > 250 units (0-19); CYTOPLASMIC NEUTROP AB ANCA-C <1:20 titer (Neg:<1:20); MICROPOLYSPORA FAENI AB Negative (Negative); PERINUCLEAR AB ANCA-P <1:20 titer (Neg:<1:20); PIGEON SERUM AB Negative (Negative); RNP ANTIBODIES <0.2 AI (0.0-0.9); SJOGREN'S ANTI SS-A <0.2 AI (0.0-0.9); SJOGREN'S ANTI SS-B <0.2 AI (0.0-0.9); SMITH ANTIBODIES <0.2 AI (0.0-0.9); THERMOACTINOMYCES SACCHARI Negative (Negative); THERMOACTINOMYCES VULGARIS Negative (Negative)
== END ==
LOC: M LAB REF 16:44
PROVIDERS: ATTEND Internal Medicine Pulmonary Disease
DX: J84.10 Pulmonary fibrosis, unspecified (principal)

== ENCOUNTER → 2019-06-08 | Outpatient (CLI) | payer MEDICARE ==
--- NOTE | 2019-06-08 14:59 | REPMRS ---
Patient History The patient states she has not had a clinical breast exam in over a year. No known family history of cancer. Took hormonal contraceptives for 2 years. 3D TOMOSYNTHESIS WAS PERFORMED. [facility] lifetime risk for breast cancer [facility] 2.8%. Digital Woman Screen Mammo: June 08, 2019 - Exam #: [id number] Bilateral CC and MLO view(s) were taken. Technologist: Linda Hernández, Technologist Prior study comparison: June 07, 2018, bilateral digital woman screen mammo performed at [facility]. May 31, 2017, digital woman screen mammo performed at [facility]. FINDINGS: There are scattered fibroglandular densities. There has been no change in the appearance of the mammogram from the prior studies. There is a mild amount of residual fibroglandular tissue which is fairly symmetric. There is no interval development of dominant mass, architectural distortion, or clustered microcalcification suggestive of malignancy. Assessment: BI-RADS/ACR category 1 mammogram. Negative Mammogram. Recommendation Routine screening mammogram in 1 year (for women over age 40). This mammogram was interpreted with the aid of an FDA-approved computer-aided dectection system. Electronically Signed By: Sidney Barth MD 06/08/19 [id number]
== END ==
LOC: M WHC 13:52
PROVIDERS: ATTEND Family Medicine
DX: Z12.31 Encounter for screening mammogram for malignant neoplasm of breast (principal); Z92.0 Personal history of contraception

== ENCOUNTER → 2019-07-03 | Outpatient (REF) | payer MEDICARE ==
[~2019-07-03] MED LIST changes: -OMEP40CA2 PO; +OMEP40CA97 PO
[2019-07-03 18:01] LABS: CALCIUM LEVEL 8.8 MG/DL (8.8-10.2); CREATININE FOR GFR 1.1 MG/DL (0.55-1.30); GLOMERULAR FILTRATION RATE 51.5 (>39); POTASSIUM SERUM 3.9 MEQ/L (3.5-5.1)
== END ==
LOC: M LABDRAWC 16:12
PROVIDERS: ATTEND Physician Assistant
DX: I50.32 Chronic diastolic (congestive) heart failure (principal)

== ENCOUNTER → 2019-08-01 | Outpatient (CLI) | payer MEDICARE ==
--- NOTE | 2019-08-01 10:42 | REP ---
Clinical: Pulmonary fibrosis. Technique: Axial noncontrast images from the thoracic inlet to the upper abdomen with coronal and sagittal re-formations. Comparison: 04/19/2019. Findings: Chronic scattered interstitial changes are appreciated primarily involving the right upper lobe where ill-defined small nodular and non solid areas of opacity are also appreciated. Areas of linear scarring are also identified at the bilateral bases. There is a 3 mm noncalcified stable nodule along the periphery of the left upper lobe. No further areas of consolidation, nodule or mass lesion appreciated. No pleural effusion. No pneumothorax. Mediastinum demonstrates atherosclerotic changes to the thoracic aorta and coronary arteries without aortic aneurysm or cardiomegaly. No pericardial effusion. Moderate hiatal hernia identified. Surrounding musculoskeletal structures demonstrate degenerative changes. Impression: 1. Scattered chronic stable interstitial changes and areas of scarring. 2. Subtle superimposed ill-defined areas of density in the right upper lobe appears slightly more pronounced than prior examination and may represent area of acute infiltrate. Electronically Signed by Jasiel Vanegas MD 08/01/2019 10:33 A
== END ==
LOC: M RAD 10:03
PROVIDERS: ATTEND Internal Medicine Pulmonary Disease
DX: J84.10 Pulmonary fibrosis, unspecified (principal); K44.9 Diaphragmatic hernia without obstruction or gangrene; R91.1 Solitary pulmonary nodule; I70.0 Atherosclerosis of aorta

== ENCOUNTER 2019-10-27 02:02 | Inpatient (IN) | payer MEDICARE ==
[~2019-10-27] VITALS: Ht 160 cm; Wt 70.3 kg
[2019-10-27] MEDS ORDERED: ATEN50TA9 (02:34)
[2019-10-27] MEDS ORDERED: LEFL1TAB4 (02:34)
--- NOTE | 2019-10-27 03:57 | REPVR ---
PROCEDURE INFORMATION: Exam: CT Head Without Contrast Exam date and time: 10/27/2019 3:26 AM Age: 74 years old Clinical indication: Injury or trauma; Fall; Initial encounter; Concussion / head injury; Consciousness not specified TECHNIQUE: Imaging protocol: Computed tomography of the head without contrast. Radiation optimization: All CT scans at this facility use at least one of these dose optimization techniques: automated exposure control; mA and/or kV adjustment per patient size (includes targeted exams where dose is matched to clinical indication); or iterative reconstruction. COMPARISON: No relevant prior studies available. FINDINGS: Brain: Left frontal lobe chronic moderate infarct. Click alk Diffuse mild cerebral age related volume loss. Mild patchy low attenuation in the white matter compatible with mild chronic small vessel ischemic disease. No midline shift, mass, fluid collection, or evidence of hemorrhage. Small chronic right stu cerebellar lacunar infarct. Ventricles: Ventricular enlargement proportional to volume loss. Bones/joints: Unremarkable. No acute fracture. Sinuses: Visualized sinuses are unremarkable. No fluid levels. Mastoid air cells: Visualized mastoid air cells are well aerated. Soft tissues: Unremarkable. IMPRESSION: Mild involutional changes, no acute intracranial abnormality. Electronically signed by: Yvon Quispe On 10/27/2019 03:57:10 AM
--- NOTE | 2019-10-27 05:24 | REPVR ---
PROCEDURE INFORMATION: Exam: CT Right Lower Extremity Without Contrast; Thigh Exam date and time: 10/27/2019 4:34 AM Age: 74 years old Clinical indication: Injury or trauma; Fall; Initial encounter; Blunt trauma; Thigh or upper leg; Right; Prior surgery; Surgery date: 6+ months; Additional info: Pain after fall, no definite FX on xray, ortho request TECHNIQUE: Imaging protocol: CT of the Right lower extremity without contrast was performed. Exam focused on the thigh. Radiation optimization: All CT scans at this facility use at least one of these dose optimization techniques: automated exposure control; mA and/or kV adjustment per patient size (includes targeted exams where dose is matched to clinical indication); or iterative reconstruction. COMPARISON: No relevant prior studies available. FINDINGS: Bones/joints: Right hip arthroplasty. Plate and screw fixation of the right femur. Streak artifact from hardware. Pubic rami intact. There is a lucency through the right femur extending laterally at the location near the tip of the intramedullary chris on series 204, image 37, acuity uncertain, correlate with priors, likely in an area of chronic weakness and stress, suspected nonacute without certainty. Soft tissues: Normal. Vasculature: Arterial calcifications. IMPRESSION: There is a lucency through the right femur extending laterally at the location near the tip of the intramedullary chris on series 204, image 37, acuity uncertain, correlate with priors, likely in an area of chronic weakness and stress, suspected nonacute without certainty. Electronically signed by: Yvon Quispe On 10/27/2019 05:23:37 AM
[2019-10-27] MEDS ORDERED: fentaNYL 100 MCG/2 ML INJECTION (J3010) IV ONE (07:30)
--- NOTE | 2019-10-27 08:07 | REP ---
Pelvis bilateral hip study: Six views. History: Injury. Comparison study January 02, 2019. Findings: AP view of the pelvis shows an intact bony pelvic ring. No sacral or pelvic fracture is appreciated. There is a right hip arthroplasty noted in place and there is old screw plate fixation device along the right femur with old femur fracture visible. Vascular calcifications noted bilaterally. No acute hip or femur fracture is seen on either side. Impression: No acute fracture noted. Electronically Signed by Burton Duarte MD 10/27/2019 07:59 A
[2019-10-27 09:02] LABS: BASO % 0.3 % (0.0-1.0); EOS # 0.2 10^3/uL (0.0-0.5); EOS % 2.5 % (0.0-3.0); HEMATOCRIT 37.7 % (36.0-47.0); HEMOGLOBIN 11.4 g/dl (12.0-15.5); LYMPH # 0.8 10^3/uL (1.5-5.0); LYMPH % 10.8 % (24.0-44.0); MEAN CORPUSCULAR HEMOGLOBIN 27.8 pg (27.0-33.0); MEAN CORPUSCULAR HGB CONC 30.2 g/dl (32.0-36.5); MONO # 0.7 10^3/uL (0.0-0.8); MONO % 9.3 % (0.0-5.0); NEUTROPHILS # 5.9 10^3/uL (1.5-8.5); NEUTROPHILS % 76.8 % (36.0-66.0); PLATELET COUNT, AUTOMATED 162 10^3/uL (150-450); WHITE BLOOD COUNT 7.6 10^3/uL (4.0-10.0)
[2019-10-27 09:22] LABS: INR 1.11; PARTIAL THROMBOPLASTIN TIME 32.1 SECONDS (25.0-38.4)
[2019-10-27 09:32] LABS: BLOOD UREA NITROGEN 18 MG/DL (7-18); CALCIUM LEVEL 8.1 MG/DL (8.8-10.2); CARBON DIOXIDE LEVEL 32 MEQ/L (21-32); CHLORIDE LEVEL 108 MEQ/L (98-107); CK-MB VALUE MASS 3.8 NG/ML (<3.6); CPK CREATINE PHOSPHOKINASE 166 U/L (26-192); CREATININE FOR GFR 0.86 MG/DL (0.55-1.30); GLOMERULAR FILTRATION RATE > 60.0 (>39); GLUCOSE, FASTING 95 MG/DL (70-100); MB/CK RELATIVE INDEX 2.29 (< OR =4); POTASSIUM SERUM 3.6 MEQ/L (3.5-5.1); SODIUM LEVEL 145 MEQ/L (136-145); TROPONIN I 0.03 NG/ML (< 0.10)
[2019-10-27 12:20] VITALS: BP 133/76
[2019-10-27] MEDS ORDERED: VITMTA PO (12:48)
[2019-10-27] MEDS ORDERED: HYDR200T3 PO ×2 (12:48)
[2019-10-27] MEDS ORDERED: ATEN50TA2 PO (12:48)
[2019-10-27] MEDS ORDERED: FURO40TA2 PO (12:48)
[2019-10-27] MEDS ORDERED: OXYB5TAB10 PO (12:48)
[2019-10-27] MEDS ORDERED: VITA100054 PO (12:48)
[2019-10-27] MEDS ORDERED: ACET-897 PO (12:48)
[2019-10-27] MEDS ORDERED: LEFL1TAB4 PO (12:48)
[2019-10-27] MEDS ORDERED: GABA-1171 PO (12:48)
[2019-10-27] MEDS ORDERED: ECOT81TA5 PO (12:48)
[2019-10-27] MEDS ORDERED: OMEP20TA9 PO (12:48)
[2019-10-27] MEDS ORDERED: OCUVTAB4 PO (12:48)
[2019-10-27] MEDS ORDERED: SERT-138 PO (12:48)
[2019-10-27] MEDS ORDERED: FOLI0.4T2 PO (12:48)
[2019-10-27] MEDS ORDERED: OMEG10002 PO (12:48)
[2019-10-27] MEDS ORDERED: LEUC5TA PO (12:49)
[2019-10-27 14:00] VITALS: BP 103/59
[2019-10-27] MEDS ORDERED: fentaNYL 100 MCG/2 ML INJECTION (J3010) IV PRN (14:00)
[2019-10-27] MEDS ORDERED: NORCO, ANEXSIA 5/325MG TABLET (HYDROcodone/ACETAMINOPHEN) PO PRN (14:00)
[2019-10-27] MEDS: oxyBUTYnin 5 MG TAB PO SCH ×2 (14:32→20:28)
[2019-10-27] MEDS: FUROSEMIDE 40 MG TAB PO SCH (14:33)
[2019-10-27] MEDS: SERTRALINE 100 MG TAB PO SCH ×2 (14:33→20:28)
[2019-10-27] MEDS: OMEPRAZOLE 20 MG CAP PO SCH ×2 (14:33→20:28)
[2019-10-27] MEDS: GABAPENTIN 100 MG CAP PO SCH ×2 (14:36→20:27)
[2019-10-27] MEDS: ENOXAPARIN 40 MG/0.4 ML SYRINGE (J1650) SC SCH (14:36)
--- NOTE | 2019-10-27 18:50 | HPEPDOC ---
General Date of Admission Oct 27, 2019 at 10:51 Date of Service: Oct 27, 2019 Chief Complaint The patient is a 74-year-old female admitted with a reason for visit of Fall At Home Femur Fracture Rt. Source: Patient, Family Exam Limitations: Mild cognitive slowing Timing/Duration: Day(s) (today) Severity: Moderate Associated Symptoms: Denies Symptoms, Mechanical fall History of Present Illness This is a 74-year-old female who apparently fell at home. She states she was walking with her walker from the living room into the kitchen. She is unable to tell me whether she was experiencing dizziness or unsteadiness. She just found herself sitting on the floor. She did call for assistance with her emergency button. She is unable to tell me whether she hit her head. She was not able to get up from the floor unassisted. Of interest, the patient had a fall 6 months ago. Apparently at that time she underwent open reduction internal fixation with placement of a chris and plate to her right hip. Home Medications Scheduled Acetaminophen (Tylenol Extra Strength) 500 Mg Tablet, 500 MG PO BID, (Reported) TAKES AT 0900 & 1730 Aspirin (Ecotrin) 81 Mg Tablet.dr, 81 MG PO DAILY, (Reported) Atenolol (Atenolol) 50 Mg Tablet, 50 MG PO DAILY, (Reported) Cholecalciferol (Vitamin D3) (Vitamin D3) 1,000 Unit Capsule, 1,000 UNIT PO DAILY, (Reported) Folic Acid (Folic Acid) 0.4 Mg Tablet, 400 MCG PO BID, (Reported) TAKES 0900 & 1200 Furosemide (Furosemide) 40 Mg Tablet, 60 MG PO DAILY, (Reported) TAKES AT 1230 Gabapentin (Gabapentin) 100 Mg Capsule, 100 MG PO TID, (Reported) TAKES 1200, 1730, & 2100 Hydroxychloroquine Sulfate (Hydroxychloroquine Sulfate) 200 Mg Tablet, 200 MG PO 2XW, (Reported) WEDNESDAY & WEDNESDAY Hydroxychloroquine Sulfate (Hydroxychloroquine Sulfate) 200 Mg Tablet, 200 MG PO 5XW, (Reported) BID ON SUN, , TH, WED, SAT Leflunomide (Leflunomide) 20 Mg Tablet, 20 MG PO DAILY, (Reported) TAKES AT 1200 Multivitamins (Thera M Plus Tablet) 1 Each Tablet, 1 TAB PO QPM, (Reported) [place]-3/Dha/Epa/Fish Oil (Fish Oil 1,000 mg Softgel) 1 Each Capsule, 1 CAP PO QPM, (Reported) Omeprazole (Omeprazole) 20 Mg Tablet.dr, 20 MG PO BID, (Reported) TAKES 0900 & 1730 Oxybutynin Chloride (Oxybutynin Chloride) 5 Mg Tablet, 5 MG PO BID, (Reported) TAKES 0900 & 1200 Sertraline HCl (Sertraline HCl) 100 Mg Tablet, 100 MG PO BID, (Reported) TAKES 1200 & 2100 Vit A/Vit C/Vit E/Zinc/Copper (Preservision Areds Tablet) 1 Each Tablet, 1 TAB PO BID, (Reported) TAKES 0900 & 1200 Allergies Coded Allergies: No Known Allergies (Unverified , 02/15/17) Past Medical History Medical History Past medical history includes rheumatoid arthritis, coronary artery disease, valvular heart disease for which she's undergone surgery, pulmonary fibrosis, stress incontinence, lumbar degenerative disc disease, essential hypertension, hiatal hernia, dyslipidemia, Sjogren syndrome, prior peptic ulcer disease, diverticular disease, macular degeneration Surgical History Surgical history includes cataract surgery, the prior mentioned right hip fracture repair, valvular heart disease--she apparently has had both aortic and mitral valve replacement in 2012, tonsillectomy Family History Significant Family History: No pertinent family hx Social History * Smoker: former Smoker (tobacco use is been remote since 1986) Alcohol: Denies (none currently, but has used in the past) Drugs: denies Psychosocial History: No pertinent psych hx, Depression 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 A-FIB/CHADSVASC A-FIB History Current/History of A-Fib/PAF?: No Current PO Anticoag Therapy: No Review of Systems Other systems 10 system review is otherwise negative except as stated in the HPI. Physical Examination General Exam: Positive: Cooperative, No Acute Distress Eye Exam: Positive: PERRLA, Conjunctiva & lids normal, Other Eye Symptoms (no scleral icterus or injection) ENT Exam: Positive: Mucous membr. moist/pink, Tongue Midline, Other ENT (patient has impact bruising to her chin, he does not appear to have injured her tongue or cheek mucosa) Neck Exam: Positive: Supple; Negative: JVD, thyromegaly Chest Exam: Positive: Clear to auscultation, Normal air movement Heart Exam: Positive: Rate Normal, Normal S1, Normal S2 Telemetry: Positive: No significant arrhythmia Abdomen Exam: Positive: Normal bowel sounds, Soft, Tenderness (the patient exhibits mild epigastric tenderness); Negative: Hepatospenomegaly Extremity Exam: Positive: Normal pulses, Other (the patient has minimal joint changes related to her rheumatoid arthritis. Her lower legs are extremely sensitive to touch); Negative: Clubbing, Cyanosis, Edema Skin Exam: Positive: Nl turgor and temperature, Other skin issue (she has remarkable scaling lesion to her right lower leg and ankle) Neuro Exam: Positive: Normal Speech, Cranial Nerves 3-12 NL Psych Exam: Positive: Mental status NL, Other (memory and cognition appear to be only moderately intact for her age.) Vital Signs Vital Signs Date Time Temp Pulse Resp B/P (MAP) Pulse Ox O2 Delivery O2 Flow Rate FiO2 10/27/19 15:06 18 Room Air 10/27/19 14:36 1.0 10/27/19 14:00 99.8 90 103/59 (74) 94 Laboratory Data Labs 24H Laboratory Tests 2 10/27/19 08:46: Immature Granulocyte % (Auto) 0.3, Neutrophils (%) (Auto) 76.8H, Lymphocytes (%) (Auto) 10.8L, Monocytes (%) (Auto) 9.3H, Eosinophils (%) (Auto) 2.5, Basophils (%) (Auto) 0.3, Neutrophils # (Auto) 5.9, Lymphocytes # (Auto) 0.8L, Monocytes # (Auto) 0.7, Eosinophils # (Auto) 0.2, Basophils # (Auto) 0.0, Nucleated Red Blood Cells % (auto) 0.0, Prothrombin Time 14.0, Prothromb Time International Ratio 1.11, Activated Partial Thromboplast Time 32.1, Anion Gap 5L, Glomerular F iltration Rate > 60.0, Calcium Level 8.1L, Total Creatine Kinase 166, Creatine Kinase MB 3.8H, Creatine Kinase MB Relative Index 2.29, Troponin I 0.03 CBC/BMP Laboratory Tests 10/27/19 08:46 Assessment/Plan 1. Probable right hip fracture. Patient is felt to have a nondisplaced periprosthetic fracture. Emergency room consulted with Dr. Zuniga and with LEILANI; surgery is not recommended--recommendations are for weightbearing as tolerated as it is anticipated to heal on its own. CT shows intact hardware. Area of lucency adjacent to the intramedullary chris is felt to reflect an area of chronic weakness and stress as opposed to acute fracture. 2. Rheumatoid arthritis. Patient will continue on her medication maintenance regimen where possible 3. Essential hypertension, peptic ulcer disease, coronary artery disease. Again, patient will continue on her usual home medication regimen. Anticipated length of stay greater than 2 midnights. Patient will likely require placement. Plan / VTE VTE Prophylaxis Ordered?: Yes (Lovenox) Plan Diet: Continue Current Activity: Encourage Ambulation Therapy: PT, OT Medications: Increase Pain Meds Anticipated Discharge: Other Anticipated D/C (home with services versus subacute rehabilitation) CRISSY CASTELLON MD Oct 27, 2019 18:50
[2019-10-27 20:17] VITALS: BP 103/59
[2019-10-27] MEDS: OCUVITE 1 TAB PO SCH (20:27)
[2019-10-27] MEDS: OMEGA-3 1000MG CAPSULE PO SCH (20:28)
[2019-10-27] MEDS: MULTIVITAMINS/MINERALS THERAP 1 TAB PO SCH (20:28)
--- NOTE | 2019-10-27 20:28 | ECGEPIP ---
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
[2019-10-28 05:19] VITALS: BP 103/64
[2019-10-28 06:30] LABS: HEMATOCRIT 35.9 % (36.0-47.0); HEMOGLOBIN 10.8 g/dl (12.0-15.5); MEAN CORPUSCULAR HEMOGLOBIN 27.8 pg (27.0-33.0); MEAN CORPUSCULAR HGB CONC 30.1 g/dl (32.0-36.5); MEAN CORPUSCULAR VOLUME 92.5 fl (80.0-96.0); PLATELET COUNT, AUTOMATED 140 10^3/uL (150-450); RED BLOOD COUNT 3.88 10^6/uL (4.00-5.40); WHITE BLOOD COUNT 5.5 10^3/uL (4.0-10.0)
[2019-10-28 06:47] LABS: BLOOD UREA NITROGEN 21 MG/DL (7-18); CALCIUM LEVEL 8.2 MG/DL (8.8-10.2); CARBON DIOXIDE LEVEL 33 MEQ/L (21-32); CHLORIDE LEVEL 104 MEQ/L (98-107); CREATININE FOR GFR 0.85 MG/DL (0.55-1.30); GLOMERULAR FILTRATION RATE > 60.0 (>39); GLUCOSE, FASTING 92 MG/DL (70-100); POTASSIUM SERUM 3.4 MEQ/L (3.5-5.1); SODIUM LEVEL 140 MEQ/L (136-145)
[2019-10-28] MEDS: ASPIRIN 81 MG ENTERIC TAB PO SCH (08:26)
[2019-10-28] MEDS: ENOXAPARIN 40 MG/0.4 ML SYRINGE (J1650) SC SCH (08:26)
[2019-10-28] MEDS: OCUVITE 1 TAB PO SCH ×2 (08:27→20:09)
[2019-10-28] MEDS: atenoloL 50 MG TAB PO SCH (08:27)
[2019-10-28] MEDS: OMEPRAZOLE 20 MG CAP PO SCH ×2 (08:27→20:10)
[2019-10-28] MEDS: oxyBUTYnin 5 MG TAB PO SCH ×2 (08:27→20:10)
[2019-10-28] MEDS: GABAPENTIN 100 MG CAP PO SCH ×3 (08:27→20:09)
[2019-10-28] MEDS: VITAMIN D 1,000 INTERNATIONAL UNITS TABLET PO SCH (08:27)
[2019-10-28] MEDS: SERTRALINE 100 MG TAB PO SCH ×2 (08:27→20:10)
[2019-10-28] MEDS: FUROSEMIDE 40 MG TAB PO SCH (08:27)
[2019-10-28] MEDS ORDERED: POTASSIUM CHLORIDE 10 MEQ SR TABLET PO ONE (13:00)
[2019-10-28] MEDS: HYDROXYCHLOROQUINE 200 MG TAB PO SCH ×2 (13:25→20:09)
[2019-10-28 14:00] VITALS: BP 103/64
--- NOTE | 2019-10-28 14:37 | REP ---
LUMBAR SPINE COMPLETE: 10/28/2019. CLINICAL HISTORY: Trauma. A fall with left leg paresthesia. COMPARISON: Partial lumbar spine 10/27/2018. FINDINGS: Five views are provided. There is a right total hip arthroplasty. Sclerosis along the iliac margin of the left SI joint again seen. And the SI joints are symmetric in width. Sacral ala and foramina intact. There is levorotatory scoliosis centered at L2-3 with advanced degenerative disc and facet arthritic changes, heavier facet arthritis in the lower lumbar spine on the left and the mid lumbar spine on the right due to the altered weightbearing mechanics. Pedicle, spinous and transverse processes grossly intact. Lower thoracic vertebral levels and ribs grossly intact. I see no definite acute compression deformity, stable grade 2 spondylolisthesis of L5 on S1 without gross evidence of a pars defect on standard or oblique views. On one of the oblique views there is hardware failure with screw fractures from the side plate along the greater trochanter from ORIF and total hip arthroplasty. This is unchanged from a pelvic exam 10/27/2018. IMPRESSION: 1. Diffuse degenerative disc changes with extensive facet arthritic changes bilaterally and grade 2 spondylolisthesis of L5 on S1. No visible spondylolysis. All of this is stable compared to x-ray of 10/27/2018. No new malalignment, compression deformities, avulsion or destructive lesion. 2. Status post right total hip arthroplasty. 3. Bones demineralized. Electronically Signed by Theodore Love MD 10/28/2019 08:02 P
--- NOTE | 2019-10-28 18:56 | IPN ---
DATE: 10/28/2019 SUBJECTIVE: The patient admitted after a fall at home. X-ray shows fracture of the screws and bending of the upper portion of the external fixation device. Official interpretation from radiology which has included an extremity CT is that there is no acute fracture. The images according to the admission were reviewed by Dr. Zuniga of orthopedic. Surgery is not recommended. Weightbearing as tolerated. Anticipate a spontaneous healing. The patient has history of rheumatoid arthritis, hypertension, peptic ulcer disease, coronary artery disease. She developed pulmonary fibrosis while on methotrexate, and the methotrexate was stopped. She now continues on hydroxychloroquine and leflunomide for control of her rheumatoid arthritis (RA) as directed by her automation controls specialist in [place]. Today she has relatively little discomfort in her right hip. She complains of numb, tingly, odd sensation in the left leg, which she thinks is new. She is not able to precisely characterize how long she has noticed this disturbance in sensation. She has no sense of weakness, however. OBJECTIVE: VITAL SIGNS: Blood pressure 103/64, pulse 83 and regular, respiratory rate 20 with no use of accessory muscles, temperature is 97.3 this morning. She was 99.3 yesterday evening. She is using oxygen at 1 liter to produce a 92-95% oxygen saturation. Chemistries show a slightly low potassium today at 3.4, calcium 8.2. CK and CK-MB relative index and troponin normal. Hemoglobin was 11.4 admission, 10.8 today. EXAMINATION: She is alert, pleasant, cooperative. Memory is less than perfect, somewhat spotty, but she did remember accurately the details of her unusual dosing of her hydroxychloroquine, taking 200 mg twice a day except on Wednesday and Wednesday. On those days she only takes one 200 mg dose. She takes a leflunomide, as noted in the medication reconcile medications function within [facility], and those doses are accurate as reflected also in the [facility] chart from the outpatient setting. Lungs show improved aeration and diminished rales compared to previous findings over the summer, before the discontinuation of her methotrexate, indicating likely improvement in her pulmonary fibrosis. She has seen a ticket dispenser changer in consultation prior to discontinuation of the methotrexate. Unfortunately, no rheumatology followup notes have been received since the methotrexate was discontinued but her rheumatology treatment program is as recorded with hydroxychloroquine and leflunomide for maintenance. Abdomen soft. There is no guarding. She has some discomfort with hip rotation. She has discomfort over the distal lower leg where she has an area of chronic stasis dermatitis. Unfortunately, leflunomide is not part of the hospital's formulary so could not be resumed. Hydroxychloroquine is on formulary. X-ray reviewed, right hip, was interpreted by Dr. Duarte and shows a right hip arthroplasty, old screw plate fixation device along the right femur with old fracture visible. No acute fracture identified on the report, however. With my independent visualization of the fracture zone, one can see that there is a discontinuity of three of the screws with positioning of the outer plate. There is an intramedullary chris and on the outside of the intramedullary chris held in place by 11 screws and three wire loops. The distal component of this external fixation device appears to be intact proximally; however, three of the screws are fractured and the device is bowing somewhat away from the femur. The intramedullary chris is in appropriate position. There is some lucency along what appears to be the medial aspect of lower end of the medullary chris, which CT officially interpreted as representing no new fracture. The pelvis appears to be intact. ASSESSMENT: Fall, hip pain, chronic problems as noted, hypertension, history of congestive heart failure (CHF), pulmonary fibrosis as a complication of methotrexate, and clinically the pulmonary fibrosis seems to be improved. Rheumatoid arthritis, on maintenance medications at this time, left leg paresthesias, which seem to be new. PLAN: Resume her usual rheumatology control medications. Leflunomide will be need to be supplied from home, since it is not part of our formulary. Likely candidate for placement due to hazard of falls and frailty, but this is not definitely confirmed at this time. Apparently, Dr. Zuniga was consulted by phone overnight, but I do not see a consult order in the chart. Therefore, we will put this in place. She is receiving deep vein thrombosis (DVT) prophylaxis appropriately. She is on an antidepressant for control of obviously depression and reports improvement since starting therapy. She is on Neurontin chronically for pain modulation. She has a remote history of using narcotic analgesics, but these were stopped a few months ago. We will order plain films of the lumbar spine and probably MRI of her lumbar spine to look for, if the plain films are abnormal, any evidence of nerve compression which might account for the numb/paresthesias she experiences in the lower extremity edema.
[2019-10-28] MEDS: OMEGA-3 1000MG CAPSULE PO SCH (20:09)
[2019-10-28] MEDS: MULTIVITAMINS/MINERALS THERAP 1 TAB PO SCH (20:09)
[2019-10-28 21:00] VITALS: BP 104/65
[2019-10-29 04:41] VITALS: BP 104/66
[2019-10-29 07:00] LABS: HEMATOCRIT 36.2 % (36.0-47.0); HEMOGLOBIN 11.4 g/dl (12.0-15.5); MEAN CORPUSCULAR HEMOGLOBIN 28.7 pg (27.0-33.0); MEAN CORPUSCULAR HGB CONC 31.5 g/dl (32.0-36.5); MEAN CORPUSCULAR VOLUME 91.2 fl (80.0-96.0); PLATELET COUNT, AUTOMATED 155 10^3/uL (150-450); RED BLOOD COUNT 3.97 10^6/uL (4.00-5.40); WHITE BLOOD COUNT 6.2 10^3/uL (4.0-10.0)
[2019-10-29 07:22] LABS: CALCIUM LEVEL 8.4 MG/DL (8.8-10.2); CREATININE FOR GFR 0.97 MG/DL (0.55-1.30); GLOMERULAR FILTRATION RATE 59.6 (>39); POTASSIUM SERUM 4.2 MEQ/L (3.5-5.1)
[2019-10-29] MEDS: OMEPRAZOLE 20 MG CAP PO SCH ×2 (08:51→20:51)
[2019-10-29] MEDS: OCUVITE 1 TAB PO SCH ×2 (08:52→20:51)
[2019-10-29] MEDS: ASPIRIN 81 MG ENTERIC TAB PO SCH (08:52)
[2019-10-29] MEDS: oxyBUTYnin 5 MG TAB PO SCH ×2 (08:52→20:52)
[2019-10-29] MEDS: SERTRALINE 100 MG TAB PO SCH ×2 (08:53→20:52)
[2019-10-29] MEDS: VITAMIN D 1,000 INTERNATIONAL UNITS TABLET PO SCH (08:53)
[2019-10-29] MEDS: atenoloL 50 MG TAB PO SCH (08:53)
[2019-10-29] MEDS: HYDROXYCHLOROQUINE 200 MG TAB PO SCH ×2 (08:53→20:51)
[2019-10-29] MEDS: FUROSEMIDE 40 MG TAB PO SCH (08:54)
[2019-10-29] MEDS: ENOXAPARIN 40 MG/0.4 ML SYRINGE (J1650) SC SCH (08:54)
[2019-10-29] MEDS: GABAPENTIN 100 MG CAP PO SCH ×3 (08:54→20:51)
[2019-10-29] MEDS ORDERED: PREVNAR 13 VACCINE SYRINGE (CPT CODE:90670) IM ONE (09:00)
[2019-10-29 14:00] VITALS: BP 104/67
[2019-10-29] MEDS: ACETAMINOPHEN TAB 650MG DOSE (2X325MG) PO PRN ×2 (14:41→20:51)
[2019-10-29] MEDS: OMEGA-3 1000MG CAPSULE PO SCH (20:51)
[2019-10-29] MEDS: MULTIVITAMINS/MINERALS THERAP 1 TAB PO SCH (20:52)
[2019-10-29 22:00] VITALS: BP 105/63
[2019-10-30 06:00] VITALS: BP 104/66
[2019-10-30] MEDS: ASPIRIN 81 MG ENTERIC TAB PO SCH (09:50)
[2019-10-30] MEDS: HYDROXYCHLOROQUINE 200 MG TAB PO SCH (09:50)
[2019-10-30] MEDS: SERTRALINE 100 MG TAB PO SCH ×2 (09:51→21:03)
[2019-10-30] MEDS: atenoloL 50 MG TAB PO SCH (09:51)
[2019-10-30] MEDS: OMEPRAZOLE 20 MG CAP PO SCH ×2 (09:51→21:02)
[2019-10-30] MEDS: oxyBUTYnin 5 MG TAB PO SCH ×2 (09:51→21:03)
[2019-10-30] MEDS: VITAMIN D 1,000 INTERNATIONAL UNITS TABLET PO SCH (09:51)
[2019-10-30] MEDS: GABAPENTIN 100 MG CAP PO SCH ×3 (09:52→21:02)
[2019-10-30] MEDS: OCUVITE 1 TAB PO SCH ×2 (09:52→21:02)
[2019-10-30] MEDS: FUROSEMIDE 40 MG TAB PO SCH (09:52)
[2019-10-30] MEDS: ENOXAPARIN 40 MG/0.4 ML SYRINGE (J1650) SC SCH (09:52)
[2019-10-30 14:00] VITALS: BP 104/64
--- NOTE | 2019-10-30 17:12 | IPNPDOC ---
Subjective Date Seen The patient was seen on 10/30/19. Subjective Chief Complaint/HPI 10/13 R ant hip pain at rest, / c WB Constitutional: Denies: Chills, Fever Eyes: Denies: Pain ENT: Denies: Head Aches Skin: Denies: Rash Pulmonary: Denies: Dyspnea, Cough Cardiovascular: Denies: Chest Pain, Palpitations Gastrointestinal: Denies: Nausea, Vomiting Genitourinary: Denies: Dysuria Objective Physical Examination General Exam: Positive: Cooperative, No Acute Distress Eye Exam: Positive: PERRLA, Conjunctiva & lids normal, Other Eye Symptoms (no scleral icterus or injection) ENT Exam: Positive: Mucous membr. moist/pink, Tongue Midline, Other ENT (patient has impact bruising to her chin, he does not appear to have injured her tongue or cheek mucosa) Neck Exam: Positive: Supple; Negative: JVD, thyromegaly Chest Exam: Positive: Clear to auscultation, Normal air movement Heart Exam: Positive: Rate Normal, Normal S1, Normal S2 Telemetry: Positive: No significant arrhythmia Abdomen Exam: Positive: Normal bowel sounds, Soft, Tenderness (the patient exhibits mild epigastric tenderness); Negative: Hepatospenomegaly Extremity Exam: Positive: Normal pulses, Other (the patient has minimal joint changes related to her rheumatoid arthritis. Her lower legs are extremely sensitive to touch); Negative: Clubbing, Cyanosis, Edema Skin Exam: Positive: Nl turgor and temperature, Other skin issue (she has remarkable scaling lesion to her right lower leg and ankle) Neuro Exam: Positive: Normal Speech, Cranial Nerves 3-12 NL Psych Exam: Positive: Mental status NL, Other (memory and cognition appear to be only moderately intact for her age.) Assessment /Plan Problems (1) Hip pain Status: Acute Problem Text: Slow improvement of pain Dr. Zuniga/Vinayak (per nursing) non-surgical 10/[address]: There is a lucency through the right femur extending laterally at the location near the tip of the intramedullary chris on series 204, image 37, acuity uncertain, correlate with priors, likely in an area of chronic weakness and stress, suspected nonacute without certainty. (2) Rheumatoid arthritis Status: Chronic Response to Treatment: Stable Problem Text: Stable on HD HCQ 200 BID, leflu 20 (3) Hypertension Status: Chronic Response to Treatment: Stable Problem Text: Stable on HD aten 50, fur 60 (4) Physical deconditioning Status: Chronic Problem Text: 10/30 NS for DC, limited by pain, plan rehab at DC (came from home) (5) Lumbar spondylosis Status: Chronic Response to Treatment: Stable Problem Text: 10/28 LS xray: 1. Diffuse degenerative disc changes with extensive facet arthritic changes bilaterally and grade 2 spondylolisthesis of L5 on S1. No visible spondylolysis. All of this is stable compared to x-ray of 10/27/2018. No new malalignment, compression deformities, avulsion or destructive lesion. 2. Status post right total hip arthroplasty. 3. Bones demineralized. Plan/VTE VTE Prophylaxis Ordered?: Yes VS, I&O, 24H, Fishbone Vital Signs/I&O Vital Signs Date Time Temp Pulse Resp B/P (MAP) Pulse Ox O2 Delivery O2 Flow Rate FiO2 10/30/19 14:00 98.0 86 17 104/64 (77) 93 Room Air 10/28/19 07:55 1.0 I&O- Last 24 Hours up to 6 AM 10/30/19 05:59 Intake Total 1320 ml Output Total 1850 ml Balance -530 ml Melvin Tidwell M.D. Oct 30, 2019 17:12
--- NOTE | 2019-10-30 18:30 | IPN ---
DATE: 10/29/2019 SUBJECTIVE: Overnight the patient has done well. She has had no problems with nausea, vomiting or diarrhea. No cramping. No cough and hip and right leg pain is no worse but stable. Apparently Dr. Zuniga was not contacted at admission despite what was documented in the H and P and we have subsequently contacted Dr. Licea who kindly agreed to see the patient and give us an opinion about her subsequent management related to her hip injury. It is believed still that we are in a mode of not requiring surgical intervention and we will proceed accordingly. We are waiting for physical therapy to affirm that her status is sufficiently safe for discharge. PT saw her yesterday and safety status was not safe as of that assessment. Today's assessment is pending if had been completed. Day by day will see how she does and assess. OBJECTIVE: Vital signs: Blood pressure is 112/67, pulse 90, regular, respiratory rate 18 and unlabored, temperature 97.0, oxygen saturation 96% on room air. Potassium is improved to 4.2 today after 40 mEq by mouth dose yesterday. Hemoglobin has improved to 11.4. Lumbar spine x-ray was done because of low back discomfort and paresthesias that she had mentioned in the left leg yesterday and pillow compression deformities. No fractures identified. A grade 2 spondylolisthesis on L5 on S1 is described but there appears to be no evidence of trauma. Demineralization is noted. ASSESSMENT: 1. Fall with complaint of pain, injury right hip. X-ray with unusual appearance related to the external fixation device. An orthopaedic consult has been requested and report has not yet been reviewed. Anticipating, based on initial evaluation, a nonsurgical management plan. PT has assessed her and not yet safe for discharge. Anticipate tomorrow she will be a candidate for alternate level of care since there seems to be no ongoing acute process requiring active treatment. 2. Rheumatoid arthritis. Treated with hydroxychloroquine and leflunomide. 3. History of methotrexate toxicity resulting in pulmonary fibrosis which seems to have improved. 4. Osteoporosis. 5. Hypertension. 6. Depression. Improved on sertraline. PLAN: PT progress until she is ready for discharge. Alternate plan could include placement but I do not think the patient would be accepting of that option at this time. She is still receiving an opiate agonist, hydrocodone, which had been ordered at admission, her last dose administered was 10/27/2019, 2 days ago, therefore I think we can discontinue this agent.
[2019-10-30 19:44] VITALS: BP 103/65
[2019-10-30] MEDS: OMEGA-3 1000MG CAPSULE PO SCH (21:02)
[2019-10-30] MEDS: MULTIVITAMINS/MINERALS THERAP 1 TAB PO SCH (21:03)
[2019-10-30] MEDS: ACETAMINOPHEN TAB 650MG DOSE (2X325MG) PO PRN (21:04)
[2019-10-31] MEDS: ACETAMINOPHEN TAB 650MG DOSE (2X325MG) PO PRN ×3 (03:10→17:04)
[2019-10-31 05:19] VITALS: BP 113/66
[2019-10-31 06:31] LABS: BASO % 0.4 % (0.0-1.0); EOS # 0.5 10^3/uL (0.0-0.5); EOS % 7.3 % (0.0-3.0); HEMOGLOBIN 11.6 g/dl (12.0-15.5); LYMPH # 1.2 10^3/uL (1.5-5.0); LYMPH % 17.3 % (24.0-44.0); MEAN CORPUSCULAR HEMOGLOBIN 28.4 pg (27.0-33.0); MEAN CORPUSCULAR HGB CONC 31.4 g/dl (32.0-36.5); MEAN CORPUSCULAR VOLUME 90.5 fl (80.0-96.0); MONO # 0.9 10^3/uL (0.0-0.8); MONO % 12.6 % (0.0-5.0); NEUTROPHILS # 4.4 10^3/uL (1.5-8.5); NEUTROPHILS % 62.3 % (36.0-66.0); PLATELET COUNT, AUTOMATED 150 10^3/uL (150-450); RED BLOOD COUNT 4.09 10^6/uL (4.00-5.40); WHITE BLOOD COUNT 7.1 10^3/uL (4.0-10.0)
[2019-10-31 07:09] LABS: ALBUMIN 2.6 GM/DL (3.2-5.2); ALT/SGPT 19 U/L (12-78); BILIRUBIN,TOTAL 0.5 MG/DL (0.2-1.0); BLOOD UREA NITROGEN 25 MG/DL (7-18); CALCIUM LEVEL 8.7 MG/DL (8.8-10.2); CARBON DIOXIDE LEVEL 31 MEQ/L (21-32); CHLORIDE LEVEL 105 MEQ/L (98-107); CREATININE FOR GFR 0.95 MG/DL (0.55-1.30); GLOMERULAR FILTRATION RATE > 60.0 (>39); GLUCOSE, FASTING 91 MG/DL (70-100); POTASSIUM SERUM 3.7 MEQ/L (3.5-5.1); SODIUM LEVEL 140 MEQ/L (136-145); TOTAL PROTEIN 6.2 GM/DL (6.4-8.2)
--- NOTE | 2019-10-31 08:10 | CR ---
DATE OF CONSULTATION: 10/28/2019 CHIEF COMPLAINT: Right hip pain and left leg numbness and tingling. Patient was admitted to the hospital after a fall at home where she slipped in the kitchen. She states that she has right hip and knee pain but this is chronic in nature as she has had right knee arthritis. Of note, the patient has a complex past history of the right leg where she has had a total hip done by Dr. Stuart approximately 20 years ago and subsequently suffered a periprosthetic fracture requiring open reduction, internal fixation that has healed quite well but does have broken hardware proximally. She has been ambulating well prior to the fall and now has improved pain control and ambulation at this point in time. She is getting out of bed with a walker, saying that her right hip/knee pain is 2-5 out of 10 that is intermittently sharp, that is made worse with ambulation and movement, but is her baseline. She also complains of left leg numbness and tingling. She does feel that this might be new since the fall but does know that she has chronic back issues that have led to intermittent nerve pain in the past. Denies any bowel or bladder incontinence or any saddle anesthesia or any recent issues with balance. Patient denies any fevers, chills, nausea, or vomiting. Complete 10-system review was conducted. Pertinent positives and negatives in history of present illness (HPI). All other systems negative. PAST MEDICAL HISTORY: 1. Rheumatoid arthritis. 2. Coronary artery disease. 3. Valvular disease. 4. Pulmonary fibrosis. 5. Stress incontinence. 6. Degenerative disc disease of the lumbar spine. 7. Hypotension. 8. Hiatal hernia. 9. Dyslipidemia. 10. Sjogren syndrome. 11. Peptic ulcer. 12. Diverticular disease. 13. Macular degeneration. PAST SURGICAL HISTORY: 1. Cataracts. 2. Right hip replacement. 3. Right hip open reduction, internal fixation. 4. Valvular heart disease, for which she had aortic and mitral valve replacement in 2014. 5. Tonsillectomy. ALLERGIES: No known drug allergies. Patient is currently on medications: - aspirin - atenolol - folic acid - furosemide - gabapentin - hydroxychloroquine - omeprazole Patient is a former smoker, quit since 1986. Denies alcohol, drugs, and is currently retired. PHYSICAL EXAMINATION: Patient is awake, alert, and oriented, well dressed, appropriate affect, breathing unlabored on room air. Normocephalic, atraumatic. Right lower extremity: Incision is well healed. No signs of erythema, hematoma, or bruising. Skin is intact. Posterior tibial pulse 2+, regular rate. No erythema about the right hip other than scar hypersensitivity. Positive extensor hallucis longus (EHL), flexor hallucis longus (FHL), tibia, and gastroc motor function. Sensation intact to light touch superficial peroneal, deep peroneal, sural, saphenous, and tibial distributions. Left lower extremity: No tenderness to palpation. Positive EHL, FHL, tibia, and gastroc motor function. Skin is intact. Posterior tibial pulse 2+, regular rate. Sensation intact to light touch superficial peroneal, deep peroneal, sural, saphenous, tibial distributions. Bilateral lower spine exam: L2 to S1 motor strength 5/5. L2 to S1 sensation intact to light touch 2/2. Multiple beats of clonus, right greater than left. Rectal exam is deferred. Denies saddle anesthesia. IMAGING: Reviewed, demonstrating previous right total hip replacement that is reduced with subsequent periprosthetic fracture that has underwent open reduction, internal fixation and has a healed callus over the fracture site with three proximal broken screws but appears to be stable. Left hip: No fracture/dislocation. Lumbar spine review demonstrating degenerative scoliosis, multilevel degeneration with grade 2 spondylosis L5-S1. LAB: Values reviewed. They were negative for any signs of infection. White blood cell count within normal limits. DIAGNOSES: 1. Right hip pain, acute on chronic, improving. 2. Left leg numbness and tingling. I discussed with the patient at this point in time, with regards to her right leg, she can weight-bear as tolerated, return to normal activity as she can. I see no issues with the hip replacement, and the fracture, nothing on clinical exam that is concerning with regards to that. In regards to the left leg numbness and tingling, this is likely a result of her significant lumbar stenosis. However, at this point she has no red flag symptoms. No bowel or bladder incontinence. No saddle anesthesia, difficulty with balance. Only complaint is intermittent numbness, and this may resolve with time if it is in fact from the fall and if it does not, we can do workup as an outpatient basis and this can also be managed with the gabapentin that she is already currently on. She is weight-bear as tolerated on bilateral lower extremities. Continue with physical therapy (PT), occupational therapy (OT), and out of bed as tolerated, and can followup as an outpatient. The patient expressed understanding and agreement with that plan. SCOTTD
[2019-10-31] MEDS: atenoloL 50 MG TAB PO SCH ×3 (09:00→17:08)
[2019-10-31 09:35] LABS: VITAMIN B12 LEVEL 964 PG/ML (247-911)
[2019-10-31] MEDS: oxyBUTYnin 5 MG TAB PO SCH ×2 (10:08→21:13)
[2019-10-31] MEDS: FUROSEMIDE 40 MG TAB PO SCH (10:09)
[2019-10-31] MEDS: OMEPRAZOLE 20 MG CAP PO SCH ×2 (10:11→21:13)
[2019-10-31] MEDS: GABAPENTIN 100 MG CAP PO SCH ×3 (10:11→21:13)
[2019-10-31] MEDS: SERTRALINE 100 MG TAB PO SCH ×2 (10:12→21:13)
[2019-10-31] MEDS: HYDROXYCHLOROQUINE 200 MG TAB PO SCH ×2 (10:12→21:13)
[2019-10-31] MEDS: VITAMIN D 1,000 INTERNATIONAL UNITS TABLET PO SCH (10:12)
[2019-10-31] MEDS: ASPIRIN 81 MG ENTERIC TAB PO SCH (10:12)
[2019-10-31] MEDS: OCUVITE 1 TAB PO SCH ×2 (10:14→21:13)
[2019-10-31] MEDS: ENOXAPARIN 40 MG/0.4 ML SYRINGE (J1650) SC SCH (10:16)
--- NOTE | 2019-10-31 10:45 | IPNPDOC ---
Subjective Date Seen The patient was seen on 10/31/19. Subjective Chief Complaint/HPI Pt this morning reports being in a lot of pain. Her son is at bedside and states that she has been saying that for his entire life. According to him she appears close to her baseline and he has impressed with how she is moving after suffering such a fall. General: Denies: Fatigue Constitutional: Denies: Chills, Fever ENT: Denies: Head Aches Skin: Denies: Rash Pulmonary: Denies: Dyspnea, Cough Cardiovascular: Denies: Chest Pain, Palpitations Gastrointestinal: Denies: Nausea, Vomiting, Abdominal Pain, Diarrhea Neurological: Reports: Weakness Psych: Reports: Mood Normal Objective Physical Examination General Exam: Positive: Cooperative, No Acute Distress ENT Exam: Positive: Mucous membr. moist/pink, Tongue Midline Neck Exam: Positive: Supple; Negative: JVD Chest Exam: Positive: Clear to auscultation, Normal air movement Heart Exam: Positive: Rate Normal, Normal S1, Normal S2 Telemetry: Positive: No significant arrhythmia Abdomen Exam: Positive: Normal bowel sounds, Soft; Negative: Tenderness Extremity Exam: Negative: Edema Skin Exam: Positive: Nl turgor and temperature, Other skin issue (she has remarkable scaling lesion to her right lower leg and ankle) Neuro Exam: Positive: Normal Speech Psych Exam: Positive: Mental status NL, Other Assessment /Plan Problems (1) Hip pain Status: Acute Problem Text: 10/30 Plan for continued PT, PFS and family working on DC plan at this time, consider SNF tomorrow if pt eligible for rehab. Slow improvement of pain Dr. Zuniga/Vinayak (per nursing) non-surgical 10/[address]: There is a lucency through the right femur extending laterally at the location near the tip of the intramedullary chris on series 204, image 37, acuity uncertain, correlate with priors, likely in an area of chronic weakness and stress, suspected nonacute without certainty. (2) Rheumatoid arthritis Status: Chronic Response to Treatment: Stable Problem Text: Stable on HD HCQ 200 BID, leflu 20 (3) Hypertension Status: Chronic Response to Treatment: Stable Problem Text: Stable on HD aten 50, fur 60 (4) Physical deconditioning Status: Chronic Problem Text: 10/30 NS for DC, limited by pain, plan rehab at DC (came from home) (5) Lumbar spondylosis Status: Chronic Response to Treatment: Stable Problem Text: 10/28 LS xray: 1. Diffuse degenerative disc changes with extensive facet arthritic changes bilaterally and grade 2 spondylolisthesis of L5 on S1. No visible spondylolysis. All of this is stable compared to x-ray of 10/27/2018. No new malalignment, compression deformities, avulsion or destructive lesion. 2. Status post right total hip arthroplasty. 3. Bones demineralized. Plan/VTE VTE Prophylaxis Ordered?: Yes VS, I&O, 24H, Fishbone Vital Signs/I&O Vital Signs Date Time Temp Pulse Resp B/P (MAP) Pulse Ox O2 Delivery O2 Flow Rate FiO2 10/31/19 10:11 87 110/69 10/31/19 05:19 97.8 17 95 Room Air 10/28/19 07:55 1.0 I&O- Last 24 Hours up to 6 AM 10/31/19 06:00 Intake Total 1800 ml Output Total 1650 ml Balance 150 ml Laboratory Data 24H LABS Laboratory Tests 2 10/31/19 05:53: Immature Granulocyte % (Auto) 0.1, Neutrophils (%) (Auto) 62.3, Lymphocytes (%) (Auto) 17.3L, Monocytes (%) (Auto) 12.6H, Eosinophils (%) (Auto) 7.3H, Basophils (%) (Auto) 0.4, Neutrophils # (Auto) 4.4, Lymphocytes # (Auto) 1.2L, Monocytes # (Auto) 0.9H, Eosinophils # (Auto) 0.5, Basophils # (Auto) 0.0, Nucleated Red Blood Cells % (auto) 0.0, Anion Gap 4L, Glomerular Filtration Rate > 60.0, Calcium Level 8.7L, Total Bilirubin 0.5, Aspartate Amino Transf (AST/SGOT) 26, Alanine Aminotransferase (ALT/SGPT) 19, Alkaline Phosphatase 68, Total Protein 6.2L, Albumin 2.6L, Albumin/Globulin Ratio 0.72L, Vitamin B12 Level 964H, Thyroid Stimulating Hormone (TSH) 1.140 CBC/BMP Laboratory Tests 10/31/19 05:53 SAURABH JUAREZ PA-C Oct 31, 2019 10:45
[2019-10-31 13:29] VITALS: BP 99/63
[2019-10-31 14:32] VITALS: BP 100/60
[2019-10-31 17:07] VITALS: BP 101/64
[2019-10-31] MEDS: MULTIVITAMINS/MINERALS THERAP 1 TAB PO SCH (21:13)
[2019-10-31] MEDS: OMEGA-3 1000MG CAPSULE PO SCH (21:13)
[2019-10-31 22:00] VITALS: BP 96/56
[2019-11-01 06:00] VITALS: BP 96/59
[2019-11-01] MEDS: ACETAMINOPHEN TAB 650MG DOSE (2X325MG) PO PRN (08:03)
--- NOTE | 2019-11-01 08:10 | IPNPDOC ---
Subjective Date Seen The patient was seen on 11/01/19. Subjective Chief Complaint/HPI Some pain in leg with ambulation - Tylenol does not help this much Constitutional: Denies: Chills, Fever Pulmonary: Denies: Dyspnea, Cough Cardiovascular: Denies: Chest Pain, Palpitations, Orthopnea Gastrointestinal: Denies: Nausea, Vomiting, Abdominal Pain, Diarrhea, Constipation Musculoskeletal: Reports: Leg Pain Objective Physical Examination General Exam: Positive: Alert (standing at sink washing her hands - holding her walker. slow to navigate and slightly unsteady), Cooperative, No Acute Distress Chest Exam: Positive: Clear to auscultation, Normal air movement Heart Exam: Positive: Rate Normal, Regular Rhythm, Normal S1, Normal S2 Telemetry: Positive: No significant arrhythmia Abdomen Exam: Positive: Normal bowel sounds, Soft; Negative: Tenderness Extremity Exam: Negative: Edema Skin Exam: Positive: Other skin issue (she has remarkable scaling lesion to her right lower leg and ankle) Neuro Exam: Positive: Normal Speech Psych Exam: Positive: Mental status NL, Other Assessment /Plan Problems (1) Hip pain Status: Acute Problem Text: 11/01 - Ortho has seen edward and reviewed imaging - they do not feel there is acute fracture and that she can weight bare as tolerated. Cont PT/OT - ARU screen pending Home with services vs ARU 10/30 Plan for continued PT, PFS and family working on DC plan at this time, consider SNF tomorrow if pt eligible for rehab. Slow improvement of pain Dr. Zuniga/Vinayak (per nursing) non-surgical 10/[address]: There is a lucency through the right femur extending laterally at the location near the tip of the intramedullary chris on series 204, image 37, acuity uncertain, correlate with priors, likely in an area of chronic weakness and stress, suspected nonacute without certainty. (2) Rheumatoid arthritis Status: Chronic Response to Treatment: Stable Problem Text: Stable on HD HCQ 200 BID, leflu 20 (3) Hypertension Status: Chronic Response to Treatment: Stable Problem Text: BP running low. BUN rising - looks a little dry - Hold Lasix for now and cont Atenolol with hold parameters (4) Physical deconditioning Status: Chronic Problem Text: 10/30 NS for DC, limited by pain, plan rehab at DC (came from home) (5) Lumbar spondylosis Status: Chronic Response to Treatment: Stable Problem Text: 10/28 LS xray: 1. Diffuse degenerative disc changes with extensive facet arthritic changes bilaterally and grade 2 spondylolisthesis of L5 on S1. No visible spondylolysis. All of this is stable compared to x-ray of 10/27/2018. No new malalignment, compression deformities, avulsion or destructive lesion. 2. Status post right total hip arthroplasty. 3. Bones demineralized. Plan/VTE VTE Prophylaxis Ordered?: Yes (Lovenox) Plan Therapy: PT, OT Disposition ARU vs home with services VS, I&O, 24H, Fishbone Vital Signs/I&O Vital Signs Date Time Temp Pulse Resp B/P (MAP) Pulse Ox O2 Delivery O2 Flow Rate FiO2 11/01/19 06:00 97.9 83 18 96/59 (71) 91 Room Air 10/28/19 07:55 1.0 I&O- Last 24 Hours up to 6 AM 11/01/19 06:00 Intake Total 1320 ml Balance 1320 ml DANIKA INIGUEZ PA-C Nov 01, 2019 08:10
[2019-11-01] MEDS: atenoloL 50 MG TAB PO SCH (09:00)
[2019-11-01] MEDS: oxyBUTYnin 5 MG TAB PO SCH ×2 (09:00→21:01)
[2019-11-01 09:07] VITALS: BP 112/72
[2019-11-01] MEDS: SERTRALINE 100 MG TAB PO SCH ×2 (10:13→21:01)
[2019-11-01] MEDS: VITAMIN D 1,000 INTERNATIONAL UNITS TABLET PO SCH (10:13)
[2019-11-01] MEDS: OCUVITE 1 TAB PO SCH ×2 (10:13→21:02)
[2019-11-01] MEDS: ASPIRIN 81 MG ENTERIC TAB PO SCH (10:13)
[2019-11-01] MEDS: GABAPENTIN 100 MG CAP PO SCH ×3 (10:13→21:00)
[2019-11-01] MEDS: HYDROXYCHLOROQUINE 200 MG TAB PO SCH (10:14)
[2019-11-01] MEDS: ENOXAPARIN 40 MG/0.4 ML SYRINGE (J1650) SC SCH (10:15)
[2019-11-01] MEDS: OMEPRAZOLE 20 MG CAP PO SCH ×2 (10:15→21:01)
[2019-11-01] MEDS: NORCO, ANEXSIA 5/325MG TABLET (HYDROcodone/ACETAMINOPHEN) PO PRN ×2 (11:52→21:01)
[2019-11-01 14:02] VITALS: BP 105/66
[2019-11-01 14:05] VITALS: BP 105/66
[2019-11-01] MEDS: MULTIVITAMINS/MINERALS THERAP 1 TAB PO SCH (21:00)
[2019-11-01] MEDS: OMEGA-3 1000MG CAPSULE PO SCH (21:01)
[2019-11-02 06:10] VITALS: BP 107/68
[2019-11-02] MEDS: ACETAMINOPHEN TAB 650MG DOSE (2X325MG) PO PRN (06:15)
[2019-11-02] MEDS: NORCO, ANEXSIA 5/325MG TABLET (HYDROcodone/ACETAMINOPHEN) PO PRN (08:53)
[2019-11-02 09:00] VITALS: BP 98/62
[2019-11-02] MEDS ORDERED: HYDR-3715 PO (09:03)
--- NOTE | 2019-11-02 09:39 | DSES ---
[facility] (SNF) SUMMARY DATE OF ADMISSION: 10/27/2019 DATE OF DISCHARGE/SNF 11/01/2019 BRIEF HISTORY AND PHYSICAL: The patient is a 74-year-old patient who fell at home walking from her living room to her kitchen. Found herself sitting on the floor, unable to get up. She had fallen 6 months ago and had an open reduction and internal fixation (ORIF) of the right hip. PAST MEDICAL HISTORY: Significant for rheumatoid arthritis, coronary artery disease, valvular heart disease for which she has undergone surgery, pulmonary fibrosis, stress incontinence, lumbar degenerative disc disease, essential hypertension, hiatal hernia, dyslipidemia, Sjogren syndrome, prior peptic ulcer disease, diverticular disease, macular degeneration. PERTINENT LABORATORIES ON ADMISSION: White count 7.6, hemoglobin 11.4, platelets 162,000. Sodium 145, potassium 3.6, BUN 18, creatinine 0.86, glucose 95. Bilateral hip and pelvis showed no acute fracture. CT of the head showed mild involutional changes, no acute intracranial abnormality. CT of the right femur showed a lucency through the right femur extending laterally at the location near the tip of the intramedullary chris, likely an area of chronic weakness and stress and most likely not acute but difficult to say without priors. Lumbar spine showed diffuse degenerative disc disease with extensive facet arthritis changes bilaterally and grade 2 spondylolisthesis at L5 through S1. No visible spondylolysis, stable compared 10/27/2018, no new compression deformities. HOSPITAL COURSE: The patient was admitted for fall with for right leg pain. Dr. Licea from orthopedics was consulted. He did not feel there was a fracture after reviewing imaging, and so he recommended weightbearing as tolerated. She has some numbness and tingling of the left lower extremity thought probably from lumbar stenosis. Numbness is intermittent. She was on gabapentin as an outpatient. She could be managed with gabapentin as an outpatient if needed. Tylenol was not really controlling her pain very well, and so hydrocodone has been ordered. Will need to follow to assure that she is tolerating this without becoming confused, as she is elderly. Hypotension. Her blood pressure is on the low side, but she gets Lasix 60 mg daily. I have discontinued this and will monitor her blood pressure trends. We also put hold parameters on her atenolol. Rheumatoid arthritis, stable on the hydroxychloroquine. Physical deconditioning. She is going to need some further strengthening and support prior to discharge. She is not an acute rehabilitation unit (ARU) candidate and may just be able to go home with more supervision and support. Patient and family services (PFS) will be meeting with her family to discuss this further. DISCHARGE DIAGNOSES: 1. Frequent falls. 2. Hip pain. 3. Degenerative disc disease. 4. Rheumatoid arthritis. 5. Hypertension. 6. Physical deconditioning. 7. Hypotension.
[2019-11-02] MEDS: GABAPENTIN 100 MG CAP PO SCH (10:13)
[2019-11-02] MEDS: OCUVITE 1 TAB PO SCH (10:14)
[2019-11-02] MEDS: ASPIRIN 81 MG ENTERIC TAB PO SCH (10:15)
[2019-11-02] MEDS: OMEPRAZOLE 20 MG CAP PO SCH (10:16)
[2019-11-02] MEDS: VITAMIN D 1,000 INTERNATIONAL UNITS TABLET PO SCH (10:16)
[2019-11-02 10:20] VITALS: BP 99/63
[2019-11-02] MEDS: atenoloL 50 MG TAB PO SCH (10:20)
[2019-11-02] MEDS: oxyBUTYnin 5 MG TAB PO SCH (10:21)
[2019-11-02] MEDS: SERTRALINE 100 MG TAB PO SCH (10:22)
[2019-11-02] MEDS: HYDROXYCHLOROQUINE 200 MG TAB PO SCH (10:23)
[2019-11-02] MEDS: ENOXAPARIN 40 MG/0.4 ML SYRINGE (J1650) SC SCH (10:25)
--- NOTE | 2019-11-02 18:29 | DSES ---
DATE OF ADMISSION: 10/27/2019 DATE OF DISCHARGE: 11/02/2019 PRIMARY CARE PHYSICIAN: Dr. Blackwell ATTENDING: Dr. Melvin Tidwell HISTORY: This is a 74-year-old female who presented to [facility] Emergency Room after suffering a fall at home. She was using her walker to walk from the living room to the kitchen. She found herself sitting on the floor. She called for assistance with her emergency button. She is unable to give details further in regard to dizziness, tripping, striking her head. She was not able to get up from the floor unassisted. She also had a fall within the last 6 months. She was evaluated in the emergency room for concern as a result of this. There was concern initially on admission of right hip fracture. She was seen by orthopedics, who did not feel as though this was the case and felt as though her left hip appeared to be in good condition after previous replacement. She has been medically otherwise stable. Her pain has been controlled with the use of hydrocodone. Her blood pressure has been controlled as well. Her pain is also contributed to by lumbar spondylosis, although she is without any acute changes to her symptoms or any concerning effects associated with this. Her labs have been stable. She has been seen by physical therapy, who had recommended short-term rehabilitation. The patient and her son are agreeable to this, as she does reside at home with him. She will be transitioned to [facility] for short-term rehabilitation today. DISCHARGE DIAGNOSES: 1. Fall with low back pain and right hip pain. 2. Rheumatoid arthritis. 3. Hypertension. 4. Physical deconditioning. DISCHARGE MEDICATIONS: - hydrocodone 5/325 one tablet every 6 hours as needed for mild to moderate pain - acetaminophen 500 mg by mouth twice a day - aspirin 81 mg daily - atenolol 50 mg daily - vitamin D3 at 1000 mg by mouth daily - folic acid 400 mcg by mouth twice a day - furosemide 60 mg daily - gabapentin 100 mg three times a day - hydroxychloroquine sulfate 200 mg daily and an additional 200 mg on Wednesday, Wednesday, , Wednesday, Wednesday - leflunomide 20 mg daily - multivitamin one tablet before bed - fish oil 1000 mg before bed - omeprazole 20 mg twice daily - oxybutynin 5 mg by mouth twice a day sertraline 100 mg daily - PreserVision one tablet by mouth twice a day DISCHARGE PLAN: Followup with the attending physician at [facility]. ACTIVITY: As tolerated. DIET: Regular.
== END 2019-11-02 11:05 | DRG 93 ==
LOC: M ED 02:02 → M ED INP 10:51 → ENRESERVTM 11:58 → ENRESERVDT 11:58 → M MS5PR 12:20
PROVIDERS: ADMIT Internal Medicine; ATTEND Family Medicine
DX: R20.2 Paresthesia of skin (principal); M54.5 Low back pain; M25.551 Pain in right hip; M06.9 Rheumatoid arthritis, unspecified; I11.0 Hypertensive heart disease with heart failure; Z72.3 Lack of physical exercise; R29.6 Repeated falls; M47.816 Spondylosis without myelopathy or radiculopathy, lumbar region; Z79.82 Long term (current) use of aspirin; Z79.899 Other long term (current) drug therapy; I25.10 Atherosclerotic heart disease of native coronary artery without angina pectoris; J84.10 Pulmonary fibrosis, unspecified; N39.3 Stress incontinence (female) (male); K44.9 Diaphragmatic hernia without obstruction or gangrene; E78.5 Hyperlipidemia, unspecified; M35.00 Sjogren syndrome, unspecified; Z87.11 Personal history of peptic ulcer disease; H35.30 Unspecified macular degeneration; Z87.891 Personal history of nicotine dependence; Z98.49 Cataract extraction status, unspecified eye; Z96.7 Presence of other bone and tendon implants; Z95.2 Presence of prosthetic heart valve; I50.9 Heart failure, unspecified

== ENCOUNTER → 2019-11-14 | Outpatient (REF) | payer MEDICARE ==
[~2019-11-14] MED LIST changes: +ACET-897 PO; +ATEN50TA2 PO; +ATEN50TA9; +ECOT81TA5 PO; +FOLI0.4T2 PO; +FURO40TA2 PO; +HYDR-3715 PO; +LEFL1TAB4; +LEFL1TAB4 PO; +OCUVTAB4 PO; +OMEG10002 PO; +OMEP20TA9 PO; +VITA100054 PO; +VITMTA PO
[2019-11-14 17:06] LABS: HEMATOCRIT 38.3 % (36.0-47.0); HEMOGLOBIN 11.9 g/dl (12.0-15.5); MEAN CORPUSCULAR HEMOGLOBIN 28.6 pg (27.0-33.0); MEAN CORPUSCULAR HGB CONC 31.1 g/dl (32.0-36.5); MEAN CORPUSCULAR VOLUME 92.1 fl (80.0-96.0); PLATELET COUNT, AUTOMATED 219 10^3/uL (150-450); RED BLOOD COUNT 4.16 10^6/uL (4.00-5.40)
[2019-11-14 17:53] LABS: CALCIUM LEVEL 8.8 MG/DL (8.8-10.2); CREATININE FOR GFR 1.07 MG/DL (0.55-1.30); GLOMERULAR FILTRATION RATE 53.2 (>39); MAGNESIUM LEVEL 2.1 MG/DL (1.8-2.4); POTASSIUM SERUM 3.8 MEQ/L (3.5-5.1)
== END ==
LOC: M LABDRAWC 16:05
PROVIDERS: ATTEND Physician Assistant
DX: I50.32 Chronic diastolic (congestive) heart failure (principal); I48.0 Paroxysmal atrial fibrillation

== ENCOUNTER → 2020-01-26 | Outpatient (REF) | payer MEDICARE ==
[2020-01-26 16:45] LABS: BILIRUBIN,TOTAL 0.3 MG/DL (0.2-1.0); CREATININE FOR GFR 1.19 MG/DL (0.55-1.30); GLOMERULAR FILTRATION RATE 47.1 (>39); POTASSIUM SERUM 4.4 MEQ/L (3.5-5.1); THYROID STIMULATING HORMONE 1.08 uIU/ML (0.358-3.740); TOTAL PROTEIN 6.5 GM/DL (6.4-8.2)
== END ==
LOC: M SFHCCLAY 10:30
PROVIDERS: ATTEND Family Medicine
DX: M81.0 Age-related osteoporosis without current pathological fracture (principal); J84.10 Pulmonary fibrosis, unspecified; M06.9 Rheumatoid arthritis, unspecified; K21.9 Gastro-esophageal reflux disease without esophagitis; R53.82 Chronic fatigue, unspecified

== ENCOUNTER → 2020-02-09 | Outpatient (REF) | payer MEDICARE | LOC: M LAB REF 18:18 | PROVIDERS: ATTEND Dermatology | DX: C44.02 Squamous cell carcinoma of skin of lip (principal) ==

== ENCOUNTER → 2020-02-12 | Outpatient (REF) | payer MEDICARE ==
[2020-02-12 16:52] LABS: CALCIUM LEVEL 8.6 MG/DL (8.8-10.2); CREATININE FOR GFR 1.19 MG/DL (0.55-1.30); GLOMERULAR FILTRATION RATE 47.1 (>39); POTASSIUM SERUM 3.7 MEQ/L (3.5-5.1)
== END ==
LOC: M LABDRAWC 15:53
PROVIDERS: ATTEND Physician Assistant
DX: I50.32 Chronic diastolic (congestive) heart failure (principal)

== ENCOUNTER → 2020-03-01 | Outpatient (CLI) | payer MEDICARE ==
--- NOTE | 2020-03-11 10:25 | SLEEPCENT ---
DATE OF STUDY: 03/01/2020 ORDERED BY: Dr. Walsh Nocturnal polysomnography was performed for evaluation of sleep physiology in this patient with a history of excessive somnolence and snoring who has multiple comorbidities. 7 hours and 57 minutes of data were reviewed. There were 316 minutes of sleep identified. Sleep latency was prolonged at 63 minutes. REM latency was prolonged at 248.5 minutes. Sleep architecture showed fragmentation and poor progression. There was a period of wake resulting in reduced sleep efficiency at 67.2%. The patient's electrocardiogram showed a sinus rhythm with an average heart rate of 80 beats per minute. Electroencephalogram (EEG) showed normal waveforms for awake and sleep stages. There were 233 respiratory events identified of 10 seconds in duration or greater for an apnea-hypopnea index of 44.2. The events were not exclusive to sleep stage. They were seen in the supine posture. Arousals from respiratory events occurred 7.4 times per hour and oxygen desaturations were seen into the 60s. There was some activity in the limb leads, but arousals were few. IMPRESSION: Severe obstructive sleep apnea syndrome (G47.33). Apnea-hypopnea index 44.2. RECOMMENDATION: The patient should be encouraged to return to the sleep disorder center for pressure therapy at her earliest convenience. In the interim, alcohol and sedative avoidance should be practiced and caution exercised during the operation of motor vehicles.
== END ==
LOC: M SLEEP 20:00
PROVIDERS: ATTEND Internal Medicine Pulmonary Disease
DX: G47.33 Obstructive sleep apnea (adult) (pediatric) (principal)

== ENCOUNTER → 2020-03-18 | Outpatient (REF) | payer MEDICARE ==
[~2020-03-18] MED LIST changes: +ASPI-546 PO; -ASPI1TAB15 PO; -FOLI0.4T2 PO; +FOLI400T5 PO
[2020-03-18 17:50] LABS: CREATININE FOR GFR 1.07 MG/DL (0.55-1.30); GLOMERULAR FILTRATION RATE 53.2 (>39); POTASSIUM SERUM 3.9 MEQ/L (3.5-5.1)
== END ==
LOC: M LABDRAWC 16:02
PROVIDERS: ATTEND Physician Assistant
DX: I50.32 Chronic diastolic (congestive) heart failure (principal)

== ENCOUNTER → 2020-04-09 | Outpatient (REF) | payer MEDICARE ==
[2020-04-09 17:11] LABS: ALBUMIN 3.1 GM/DL (3.2-5.2); CREATININE FOR GFR 1.02 MG/DL (0.55-1.30); GLOMERULAR FILTRATION RATE 56.2 (>39)
== END ==
LOC: M LABDRAWC 16:10
PROVIDERS: ATTEND Physician Assistant Medical
DX: M05.79 Rheumatoid arthritis with rheumatoid factor of multiple sites without organ or systems involvement (principal); Z79.899 Other long term (current) drug therapy

== ENCOUNTER → 2020-04-10 | Outpatient (REF) | payer MEDICARE ==
[~2020-04-10] MED LIST changes: -ASPI-546 PO; +ASPI1TAB15 PO; +FOLI0.4T2 PO; -FOLI400T5 PO
== END ==
LOC: M LAB REF 14:09
PROVIDERS: ATTEND Dermatology
DX: L57.0 Actinic keratosis (principal); L90.5 Scar conditions and fibrosis of skin

== ENCOUNTER → 2020-06-03 | Outpatient (REF) | payer MEDICARE ==
[~2020-06-03] MED LIST changes: +ASPI-546 PO; -ASPI1TAB15 PO; -FOLI0.4T2 PO; +FOLI400T5 PO
[2020-06-03 14:20] LABS: BLOOD UREA NITROGEN 19 MG/DL (7-18); CALCIUM LEVEL 8.9 MG/DL (8.8-10.2); CARBON DIOXIDE LEVEL 32 MEQ/L (21-32); CHLORIDE LEVEL 104 MEQ/L (98-107); CREATININE FOR GFR 0.93 MG/DL (0.55-1.30); GLOMERULAR FILTRATION RATE > 60.0 (>39); GLUCOSE, FASTING 85 MG/DL (70-100); SODIUM LEVEL 143 MEQ/L (136-145)
== END ==
LOC: M SHH 12:31
PROVIDERS: ATTEND Physician Assistant
DX: I50.32 Chronic diastolic (congestive) heart failure (principal)

== ENCOUNTER → 2020-06-25 | Outpatient (REF) | payer MEDICARE ==
[2020-06-25 16:51] LABS: CALCIUM LEVEL 9.1 MG/DL (8.8-10.2); CREATININE FOR GFR 1.05 MG/DL (0.55-1.30); GLOMERULAR FILTRATION RATE 54.2 (>39)
== END ==
LOC: M SHH 16:24
PROVIDERS: ATTEND Physician Assistant
DX: I50.32 Chronic diastolic (congestive) heart failure (principal)

== ENCOUNTER → 2020-08-07 | Outpatient (CLI) | payer MEDICARE ==
--- NOTE | 2020-08-07 16:21 | REPMRS ---
Patient History The patient states she has not had a clinical breast exam in over a year. No known family history of cancer. Took hormonal contraceptives for 2 years. 3D TOMOSYNTHESIS WAS PERFORMED. [facility] for breast cancer is 2,5%. Volpara breast density c. Digital Woman Screen Mammo: August 07, 2020 - Exam #: [id number] Bilateral CC and MLO view(s) were taken. Technologist: Yeimi Justin, Technologist Prior study comparison: June 08, 2019, bilateral digital woman screen mammo performed at [facility]. June 07, 2018, bilateral digital woman screen mammo performed at [facility]. FINDINGS: There are scattered fibroglandular densities. There has been no change in the appearance of the mammogram from the prior studies. There is a mild amount of residual fibroglandular tissue which is fairly symmetric. There is no interval development of dominant mass, architectural distortion, or clustered microcalcification suggestive of malignancy. Assessment: BI-RADS/ACR category 1 mammogram. Negative Mammogram. Recommendation Routine screening mammogram in 1 year (for women over age 40). This mammogram was interpreted with the aid of an FDA-approved computer-aided dectection system. Electronically Signed By: Sidney Barth MD 08/07/20 [id number]
--- NOTE | 2020-08-07 17:10 | DEXA ---
INDICATION: M85.80 SENILE OSTEOPOROSIS,M05.79 RA. COMPARISON: 08/08/2009, 08/22/2003 and 02/25/2000 TECHNIQUE: Bone density was measured using dual-energy x-ray absorptiometry (DEXA). FINDINGS: AP SPINE L1-L4 BMD 1.162 g/cm2 Young Adult T-Score -0.2 Age Matched Z-Score 1.6. LT FEMUR, TOTAL BMD 0.767 g/cm2 Young Adult T-Score -1.9 Age Matched Z-Score -0.1. LT NECK BMD 0.731 g/cm2 Young Adult T-Score -2.2 Age Matched Z-Score -0.2. IMPRESSION: There is normal bone density of the spine. There is low bone density of the left hip. The density of the spine has increased 14.9% since the initial exam on 02/25/2000. The density of the spine decreased 8.4% since most recent exam on 08/08/2009. The density of the left hip has decreased 27.0% since initial exam on 08/22/2003. The density of the left hip has decreased 32.1% since most recent exam on 08/08/2009. FOLLOW-UP: Recommendation for the next bone density exam: 2 years. <Electronically signed by Sidney Barth > 08/07/20 [id number]
== END ==
LOC: M WHC 14:25
PROVIDERS: ATTEND Family Medicine
DX: Z12.31 Encounter for screening mammogram for malignant neoplasm of breast (principal); M81.0 Age-related osteoporosis without current pathological fracture

== ENCOUNTER → 2020-09-03 | Outpatient (CLI) | payer MEDICARE ==
--- NOTE | 2020-09-03 16:06 | REPPI ---
INDICATION: R07.9 CHEST PAIN UNSPECIFIED. COMPARISON: Comparison chest CT study August 01, 2019.. TECHNIQUE: Five views of the bilateral ribcage are obtained including PA chest. FINDINGS: There is a moderate size sliding-type hiatal hernia. The patient is status post prior median sternotomy and what appears to be mitral and tricuspid valve replacement. The heart is enlarged as before. There are right perihilar interstitial fibrotic changes which are felt to be unchanged from August 01, 2019 CT study. There is a substantial levoconvex scoliosis in the lumbar spine and dextroconvex curvature is seen in the thoracic spine. No acute infiltrate is seen. Multiple rib views show diffuse osteopenia. There is no visible rib fracture or bony destructive lesion. IMPRESSION: Significant S-shaped thoracolumbar scoliosis with degenerative lumbar spine changes. Diffuse osteopenia. Prior sternotomy and cardiac valve replacement. Hiatal hernia. Otherwise negative rib radiographic series. <Electronically signed by Hernan Duarte > 09/03/20 [id number]
== END ==
LOC: M PLAIMG 11:25
PROVIDERS: ATTEND Internal Medicine Pulmonary Disease
DX: R07.9 Chest pain, unspecified (principal); M41.55 Other secondary scoliosis, thoracolumbar region; M51.36 Other intervertebral disc degeneration, lumbar region; Z95.828 Presence of other vascular implants and grafts

== ENCOUNTER → 2020-10-08 | Outpatient (REF) | payer MEDICARE ==
[2020-10-08 16:28] LABS: BASO % 0.4 % (0.0-1.0); EOS # 0.3 10^3/uL (0.0-0.5); EOS % 3.6 % (0.0-3.0); HEMATOCRIT 39.6 % (36.0-47.0); HEMOGLOBIN 11.8 g/dl (12.0-15.5); LYMPH % 13.4 % (24.0-44.0); MEAN CORPUSCULAR HEMOGLOBIN 28.7 pg (27.0-33.0); MEAN CORPUSCULAR HGB CONC 29.8 g/dl (32.0-36.5); MEAN CORPUSCULAR VOLUME 96.4 fl (80.0-96.0); MONO # 0.6 10^3/uL (0.0-0.8); MONO % 8.6 % (0.0-5.0); NEUTROPHILS # 5.3 10^3/uL (1.5-8.5); NEUTROPHILS % 73.6 % (36.0-66.0); PLATELET COUNT, AUTOMATED 240 10^3/uL (150-450); RED BLOOD COUNT 4.11 10^6/uL (4.00-5.40); WHITE BLOOD COUNT 7.2 10^3/uL (4.0-10.0)
[2020-10-08 16:58] LABS: C REACTIVE PROTEIN QUANTITATIV 0.38 MG/DL (0.00-0.30); CREATININE FOR GFR 1.2 MG/DL (0.55-1.30); GLOMERULAR FILTRATION RATE 46.5 (>39); POTASSIUM SERUM 4.3 MEQ/L (3.5-5.1)
== END ==
LOC: M SFHCCLAY 12:11
PROVIDERS: ATTEND Family Medicine
DX: I50.32 Chronic diastolic (congestive) heart failure (principal); I48.0 Paroxysmal atrial fibrillation; L03.119 Cellulitis of unspecified part of limb; M79.662 Pain in left lower leg; I87.2 Venous insufficiency (chronic) (peripheral)

== ENCOUNTER → 2020-10-22 | Outpatient (CLI) | payer MEDICARE ==
--- NOTE | 2020-10-22 14:22 | REP ---
INDICATION: SHANE LEG PAIN AND STASIS COMPARISON: None. TECHNIQUE: Real time compression and duplex Doppler interrogation of the bilateral lower extremity deep venous system is performed. FINDINGS: Bilaterally, the common femoral, superficial femoral and popliteal veins are fully compressible with transducer pressure and demonstrate normal spontaneous and phasic flow, without evidence of deep venous thrombosis. IMPRESSION: No evidence of deep venous thrombosis of the bilateral lower extremity femoral popliteal venous system. <Electronically signed by Sidney Barth > 10/22/20 [id number]
== END ==
LOC: M RAD 13:01
PROVIDERS: ATTEND Family Medicine
DX: I87.2 Venous insufficiency (chronic) (peripheral) (principal); M79.662 Pain in left lower leg

== ENCOUNTER → 2020-11-01 | Outpatient (CLI) | payer MEDICARE ==
--- NOTE | 2020-11-01 18:14 | REP ---
INDICATION: CHRONIC STASIS DERMATITIS UNSPECIFIED LATERLITY. Elevated D-dimer. Pain in the right lower leg, pain in the left lower leg. COMPARISON: Comparison study October 22, 2020.. TECHNIQUE: Bilateral lower extremity duplex venous ultrasound is performed. FINDINGS: The deep veins are anechoic and fully compressible from the groin to the popliteal fossa in the left and right lower extremity. Color flow imaging is homogeneous. Spectral Doppler interrogation demonstrates intact respiratory variation in flow and normal manual augmentation of flow. There is no evidence of deep vein thrombosis. There is a Coleman's cyst in the right popliteal fossa measuring 2.7 x 0.6 x 0.7 cm. IMPRESSION: Negative bilateral lower extremity duplex venous ultrasound. No evidence of deep vein thrombosis. Small right Coleman's cyst. <Electronically signed by Hernan Duarte > 11/01/20 [id number]
== END ==
LOC: M RAD 15:05
PROVIDERS: ATTEND Family Medicine
DX: I83.10 Varicose veins of unspecified lower extremity with inflammation (principal); R79.89 Other specified abnormal findings of blood chemistry; M79.661 Pain in right lower leg; M79.662 Pain in left lower leg; M71.21 Synovial cyst of popliteal space [Baker], right knee

== ENCOUNTER → 2020-12-31 | Outpatient (REF) | payer MEDICARE ==
[2020-12-31 16:31] LABS: BASO % 0.4 % (0.0-1.0); EOS # 0.3 10^3/uL (0.0-0.5); EOS % 3.6 % (0.0-3.0); HEMATOCRIT 36.8 % (36.0-47.0); HEMOGLOBIN 11.4 g/dl (12.0-15.5); LYMPH % 13.1 % (24.0-44.0); MEAN CORPUSCULAR HEMOGLOBIN 29.6 pg (27.0-33.0); MEAN CORPUSCULAR VOLUME 95.6 fl (80.0-96.0); MONO # 0.6 10^3/uL (0.0-0.8); MONO % 7.2 % (2.0-8.0); NEUTROPHILS # 5.8 10^3/uL (1.5-8.5); NEUTROPHILS % 75.3 % (36.0-66.0); PLATELET COUNT, AUTOMATED 183 10^3/uL (150-450); RED BLOOD COUNT 3.85 10^6/uL (4.00-5.40); WHITE BLOOD COUNT 7.7 10^3/uL (4.0-10.0)
[2020-12-31 17:04] LABS: ALBUMIN 3.1 GM/DL (3.2-5.2); BILIRUBIN,TOTAL 0.2 MG/DL (0.2-1.0); CALCIUM LEVEL 8.9 MG/DL (8.8-10.2); CREATININE FOR GFR 1.01 MG/DL (0.55-1.30); FREE T4 0.71 NG/DL (0.76-1.46); GLOMERULAR FILTRATION RATE 56.7 (>39); POTASSIUM SERUM 4.4 MEQ/L (3.5-5.1); THYROID STIMULATING HORMONE 0.797 uIU/ML (0.358-3.740); TOTAL PROTEIN 6.5 GM/DL (6.4-8.2)
[2020-12-31 17:47] LABS: HEMOGLOBIN A1c 5.9 %
== END ==
LOC: M SFHCCLAY 11:53
PROVIDERS: ATTEND Family Medicine
DX: M05.79 Rheumatoid arthritis with rheumatoid factor of multiple sites without organ or systems involvement (principal); K21.9 Gastro-esophageal reflux disease without esophagitis; G56.01 Carpal tunnel syndrome, right upper limb; Z79.899 Other long term (current) drug therapy

== ENCOUNTER → 2021-01-13 | Outpatient (REF) | payer MEDICARE ==
[2021-01-14 12:42] LABS: CREATININE FOR GFR 1.04 MG/DL (0.55-1.30); GLOMERULAR FILTRATION RATE 54.8 (>39); MAGNESIUM LEVEL 2.6 MG/DL (1.8-2.4); POTASSIUM SERUM 4.9 MEQ/L (3.5-5.1)
== END ==
LOC: M LABDRAWC 11:16
PROVIDERS: ATTEND Physician Assistant
DX: I50.32 Chronic diastolic (congestive) heart failure (principal); I48.0 Paroxysmal atrial fibrillation

== ENCOUNTER → 2021-04-22 | Outpatient (REF) | payer MEDICARE ==
[~2021-04-22] MED LIST changes: +OMEP20TA2 PO; -OMEP20TA9 PO; +OMEP40CA4 PO; -OMEP40CA97 PO
[2021-04-22 17:46] LABS: CREATININE FOR GFR 1.15 MG/DL (0.55-1.30); GLOMERULAR FILTRATION RATE 48.8 (>39); MAGNESIUM LEVEL 2.5 MG/DL (1.8-2.4); POTASSIUM SERUM 4.5 MEQ/L (3.5-5.1)
== END ==
LOC: M LABDRAWC 16:05
PROVIDERS: ATTEND Physician Assistant
DX: I50.32 Chronic diastolic (congestive) heart failure (principal); I48.0 Paroxysmal atrial fibrillation

== ENCOUNTER → 2021-06-13 | Outpatient (REF) | payer MEDICARE | LOC: M LAB REF 17:11 | PROVIDERS: ATTEND Otolaryngology | DX: K13.0 Diseases of lips (principal) ==

== ENCOUNTER → 2021-07-29 | Outpatient (REF) | payer MEDICARE ==
[2021-07-29 17:04] LABS: CALCIUM LEVEL 9.1 MG/DL (8.8-10.2); CREATININE FOR GFR 1.36 MG/DL (0.55-1.30); GLOMERULAR FILTRATION RATE 40.1 (>39); MAGNESIUM LEVEL 2.4 MG/DL (1.8-2.4); POTASSIUM SERUM 4.2 MEQ/L (3.5-5.1)
== END ==
LOC: M LABDRAWC 16:03
PROVIDERS: ATTEND Physician Assistant
DX: I50.32 Chronic diastolic (congestive) heart failure (principal); E83.42 Hypomagnesemia

== ENCOUNTER → 2021-09-09 | Outpatient (CLI) | payer MEDICARE ==
--- NOTE | 2021-09-09 18:14 | REP ---
INDICATION: LFT SHOULDER PAIN; OTHER CHRONIC PAIN; NECK PAIN COMPARISON: None. TECHNIQUE: Three views left shoulder. FINDINGS: There is no evidence of acute fracture, dislocation, or intrinsic bone disease.There is moderate spurring of the humeral head. There is mild joint space narrowing of the acromioclavicular and glenohumeral joints. IMPRESSION: No fracture or dislocation. Degenerative changes. <Electronically signed by Sidney Barth > 09/09/21 [id number]
--- NOTE | 2021-09-09 18:21 | REP ---
INDICATION: LFT SHOULDER PAIN; OTHER CHORNIC PAIN; NECK PAIN. COMPARISON: None. TECHNIQUE: Eight views cervical spine. FINDINGS: No compression fracture is seen. C7 is not well visualized, it is only seen on the swimmer's view with the clavicles overlying C7. There is minor anterolisthesis of C4 on C5 with flexion. This reduces with extension. There is mild spurring and mild disc space narrowing and subchondral sclerosis at C5-6 and C6-7. There is diffuse sclerosis and spurring at the posterior facet joints. Uncovertebral spurring appears to cause some degree of neural foraminal narrowing bilaterally at C4-5 and C5-6. IMPRESSION: Degenerative changes as above. <Electronically signed by Sidney Barth > 09/09/21 [id number]
--- NOTE | 2021-09-10 04:40 | REP ---
INDICATION: LFT SHOULDER PAIN; OTHER CHORNIC PAIN; NECK PAIN COMPARISON: 09/03/2020 TECHNIQUE: PA and lateral. FINDINGS: The mediastinum and cardiac silhouette are normal. Hiatal hernia again identified along with prior sternotomy and cardiac valve repair. The lung queen demonstrate stable chronic changes. The skeletal structures are intact and normal. IMPRESSION: No acute cardiopulmonary process. <Electronically signed by Jasiel Vanegas > 09/10/21 [id number]
== END ==
LOC: M CLY 15:49
PROVIDERS: ATTEND Family Medicine
DX: M50.322 Other cervical disc degeneration at C5-C6 level (principal); M50.323 Other cervical disc degeneration at C6-C7 level; M25.512 Pain in left shoulder; G89.29 Other chronic pain; K44.9 Diaphragmatic hernia without obstruction or gangrene

== ENCOUNTER → 2021-09-19 | Outpatient (CLI) | payer MEDICARE | LOC: M WHC 12:24 | PROVIDERS: ATTEND Family Medicine | DX: Z12.31 Encounter for screening mammogram for malignant neoplasm of breast (principal); R92.1 Mammographic calcification found on diagnostic imaging of breast ==

== ENCOUNTER → 2021-12-16 | Outpatient (REF) | payer MEDICARE ==
[2021-12-16 09:04] LABS: HEMATOCRIT 36.1 % (36.0-47.0); HEMOGLOBIN 10.8 g/dl (12.0-15.5); MEAN CORPUSCULAR HEMOGLOBIN 26.3 pg (27.0-33.0); MEAN CORPUSCULAR HGB CONC 29.9 g/dl (32.0-36.5); MEAN CORPUSCULAR VOLUME 87.8 fl (80.0-96.0); PLATELET COUNT, AUTOMATED 341 10^3/uL (150-450); RED BLOOD COUNT 4.11 10^6/uL (4.00-5.40)
[2021-12-16 09:28] LABS: CALCIUM LEVEL 8.9 MG/DL (8.8-10.2); GLOMERULAR FILTRATION RATE 57.2 (>39); PERCENT SATURATION 8.4 % (13.2-45.0); POTASSIUM SERUM 3.9 MEQ/L (3.5-5.1)
== END ==
LOC: SKLAB3 07:05
PROVIDERS: ATTEND Family Medicine
DX: I50.9 Heart failure, unspecified (principal); M85.88 Other specified disorders of bone density and structure, other site

== ENCOUNTER → 2021-12-28 | Outpatient (CLI) | payer MEDICARE | LOC: SKLAB3 21:23 | PROVIDERS: ATTEND Family Medicine | DX: D50.9 Iron deficiency anemia, unspecified (principal); Z87.11 Personal history of peptic ulcer disease ==

== ENCOUNTER → 2021-12-30 | Outpatient (REF) | payer MEDICARE | LOC: SKLAB3 12:53 | PROVIDERS: ATTEND Family Medicine | DX: D64.9 Anemia, unspecified (principal) ==

== ENCOUNTER → 2022-01-20 | Outpatient (REF) | payer MEDICARE ==
[2022-01-20 11:17] LABS: HEMATOCRIT 41.7 % (36.0-47.0); HEMOGLOBIN 12.6 g/dl (12.0-15.5); MEAN CORPUSCULAR HEMOGLOBIN 27.3 pg (27.0-33.0); MEAN CORPUSCULAR HGB CONC 30.2 g/dl (32.0-36.5); MEAN CORPUSCULAR VOLUME 90.5 fl (80.0-96.0); PLATELET COUNT, AUTOMATED 278 10^3/uL (150-450); RED BLOOD COUNT 4.61 10^6/uL (4.00-5.40); WHITE BLOOD COUNT 8.6 10^3/uL (4.0-10.0)
[2022-01-20 11:36] LABS: PERCENT SATURATION 30.6 % (13.2-45.0)
== END ==
LOC: SKLAB3 11:45
PROVIDERS: ATTEND Family Medicine
DX: D64.9 Anemia, unspecified (principal)

== ENCOUNTER → 2022-04-14 | Outpatient (REF) | payer MEDICARE ==
[2022-04-14 08:02] LABS: BASO % 0.3 % (0.0-1.0); EOS # 0.4 10^3/uL (0.0-0.5); EOS % 5.3 % (0.0-3.0); HEMATOCRIT 37.2 % (36.0-47.0); HEMOGLOBIN 11.3 g/dl (12.0-15.5); LYMPH # 1.1 10^3/uL (1.5-5.0); LYMPH % 16.3 % (24.0-44.0); MEAN CORPUSCULAR HEMOGLOBIN 28.5 pg (27.0-33.0); MEAN CORPUSCULAR HGB CONC 30.4 g/dl (32.0-36.5); MEAN CORPUSCULAR VOLUME 93.9 fl (80.0-96.0); MONO # 0.7 10^3/uL (0.0-0.8); MONO % 10.4 % (2.0-8.0); NEUTROPHILS # 4.4 10^3/uL (1.5-8.5); NEUTROPHILS % 67.4 % (36.0-66.0); PLATELET COUNT, AUTOMATED 145 10^3/uL (150-450); RED BLOOD COUNT 3.96 10^6/uL (4.00-5.40); WHITE BLOOD COUNT 6.6 10^3/uL (4.0-10.0)
[2022-04-14 08:28] LABS: ERYTHROCYTE SEDIMENTATION RATE 14 mm/hr (0-30)
[2022-04-14 08:38] LABS: ALBUMIN 2.7 GM/DL (3.2-5.2); BILIRUBIN,TOTAL 0.4 MG/DL (0.2-1.0); C REACTIVE PROTEIN QUANTITATIV 0.3 MG/DL (0.00-0.30); CALCIUM LEVEL 8.3 MG/DL (8.8-10.2); CHOLESTEROL RISK RATIO 2.414 (<5); CREATININE FOR GFR 1.12 MG/DL (0.55-1.30); GLOMERULAR FILTRATION RATE 50.2 (>39); POTASSIUM SERUM 3.7 MEQ/L (3.5-5.1); THYROID STIMULATING HORMONE 0.847 uIU/ML (0.358-3.740); TOTAL PROTEIN 5.4 GM/DL (6.4-8.2)
== END ==
LOC: SKLAB3 08:45
PROVIDERS: ATTEND Family Medicine
DX: N18.9 Chronic kidney disease, unspecified (principal); D64.9 Anemia, unspecified

== ENCOUNTER → 2022-05-01 | Outpatient (REF) | payer MEDICARE, MEDICAID | LOC: SKLAB3 11:56 | PROVIDERS: ATTEND Urology | DX: Z20.822 Contact with and (suspected) exposure to COVID-19 (principal) ==

== ENCOUNTER → 2022-06-01 | Outpatient (REF) | payer MEDICARE, MEDICAID ==
[2022-06-01 16:42] LABS: HEMATOCRIT 42.2 % (36.0-47.0); MEAN CORPUSCULAR HEMOGLOBIN 29.6 pg (27.0-33.0); MEAN CORPUSCULAR HGB CONC 30.8 g/dl (32.0-36.5); MEAN CORPUSCULAR VOLUME 96.1 fl (80.0-96.0); PLATELET COUNT, AUTOMATED 185 10^3/uL (150-450); RED BLOOD COUNT 4.39 10^6/uL (4.00-5.40); WHITE BLOOD COUNT 6.4 10^3/uL (4.0-10.0)
[2022-06-01 17:24] LABS: CREATININE FOR GFR 1.21 MG/DL (0.55-1.30); GLOMERULAR FILTRATION RATE 45.8 (>39); POTASSIUM SERUM 3.9 MEQ/L (3.5-5.1)
[2022-06-01 17:25] LABS: CALCIUM LEVEL 9.3 MG/DL (8.8-10.2)
== END ==
LOC: SKLAB3 12:52
PROVIDERS: ATTEND Nurse Practitioner Family
DX: U07.1 COVID-19 (principal); Z79.899 Other long term (current) drug therapy

== ENCOUNTER → 2022-06-04 | Outpatient (REF) | payer MEDICAID, MEDICARE ==
[2022-06-04 08:21] LABS: HEMATOCRIT 42.3 % (36.0-47.0); HEMOGLOBIN 13.1 g/dl (12.0-15.5); MEAN CORPUSCULAR HEMOGLOBIN 29.3 pg (27.0-33.0); MEAN CORPUSCULAR VOLUME 94.6 fl (80.0-96.0); PLATELET COUNT, AUTOMATED 190 10^3/uL (150-450); RED BLOOD COUNT 4.47 10^6/uL (4.00-5.40); WHITE BLOOD COUNT 7.1 10^3/uL (4.0-10.0)
[2022-06-04 08:56] LABS: BILIRUBIN,TOTAL 0.5 MG/DL (0.2-1.0); CALCIUM LEVEL 9.1 MG/DL (8.8-10.2); CREATININE FOR GFR 1.09 MG/DL (0.55-1.30); GLOMERULAR FILTRATION RATE 51.7 (>39); POTASSIUM SERUM 3.7 MEQ/L (3.5-5.1); TOTAL PROTEIN 6.4 GM/DL (6.4-8.2)
== END ==
LOC: SKLAB3 07:00
PROVIDERS: ATTEND Nurse Practitioner Family
DX: U07.1 COVID-19 (principal)

== ENCOUNTER → 2022-06-08 | Outpatient (REF) | payer MEDICAID, MEDICARE ==
[2022-06-08 06:56] LABS: HEMATOCRIT 36.4 % (36.0-47.0); HEMOGLOBIN 11.6 g/dl (12.0-15.5); MEAN CORPUSCULAR HEMOGLOBIN 29.9 pg (27.0-33.0); MEAN CORPUSCULAR HGB CONC 31.9 g/dl (32.0-36.5); MEAN CORPUSCULAR VOLUME 93.8 fl (80.0-96.0); PLATELET COUNT, AUTOMATED 155 10^3/uL (150-450); RED BLOOD COUNT 3.88 10^6/uL (4.00-5.40); WHITE BLOOD COUNT 6.7 10^3/uL (4.0-10.0)
[2022-06-08 07:32] LABS: ALBUMIN 2.4 GM/DL (3.2-5.2); BILIRUBIN,TOTAL 0.4 MG/DL (0.2-1.0); CALCIUM LEVEL 8.7 MG/DL (8.8-10.2); CREATININE FOR GFR 0.97 MG/DL (0.55-1.30); GLOMERULAR FILTRATION RATE 59.1 (>39); POTASSIUM SERUM 3.9 MEQ/L (3.5-5.1); TOTAL PROTEIN 5.5 GM/DL (6.4-8.2)
== END ==
LOC: SKLAB3 07:00
PROVIDERS: ATTEND Nurse Practitioner Family
DX: U07.1 COVID-19 (principal)

== ENCOUNTER → 2022-07-13 | Outpatient (REF) | payer MEDICARE, MEDICAID ==
[2022-07-13 08:10] LABS: BASO % 0.3 % (0.0-1.0); EOS # 0.6 10^3/uL (0.0-0.5); EOS % 7.8 % (0.0-3.0); HEMATOCRIT 42.1 % (36.0-47.0); HEMOGLOBIN 12.9 g/dl (12.0-15.5); LYMPH # 1.5 10^3/uL (1.5-5.0); LYMPH % 21.7 % (24.0-44.0); MEAN CORPUSCULAR HEMOGLOBIN 29.2 pg (27.0-33.0); MEAN CORPUSCULAR HGB CONC 30.6 g/dl (32.0-36.5); MEAN CORPUSCULAR VOLUME 95.2 fl (80.0-96.0); MONO # 0.6 10^3/uL (0.0-0.8); NEUTROPHILS # 4.4 10^3/uL (1.5-8.5); NEUTROPHILS % 62.1 % (36.0-66.0); PLATELET COUNT, AUTOMATED 217 10^3/uL (150-450); RED BLOOD COUNT 4.42 10^6/uL (4.00-5.40); WHITE BLOOD COUNT 7.1 10^3/uL (4.0-10.0)
[2022-07-13 08:34] LABS: ERYTHROCYTE SEDIMENTATION RATE 22 mm/hr (0-30)
[2022-07-13 08:39] LABS: ALBUMIN 3.1 GM/DL (3.2-5.2); BILIRUBIN,TOTAL 0.5 MG/DL (0.2-1.0); C REACTIVE PROTEIN QUANTITATIV 0.3 MG/DL (0.00-0.30); CALCIUM LEVEL 9.1 MG/DL (8.8-10.2); CREATININE FOR GFR 1.06 MG/DL (0.55-1.30); GLOMERULAR FILTRATION RATE 53.4 (>39); POTASSIUM SERUM 3.5 MEQ/L (3.5-5.1); TOTAL PROTEIN 6.8 GM/DL (6.4-8.2)
== END ==
LOC: SKLAB2 08:35
PROVIDERS: ATTEND Nurse Practitioner Family
DX: M06.9 Rheumatoid arthritis, unspecified (principal)

== ENCOUNTER → 2022-10-09 | Outpatient (REF) | payer MEDICARE, MEDICAID | LOC: SKLAB3 11:33 | PROVIDERS: ATTEND Family Medicine | DX: M77.31 Calcaneal spur, right foot (principal) ==

== ENCOUNTER → 2022-10-20 | Outpatient (REF) | payer MEDICARE, MEDICAID ==
[2022-10-20 08:25] LABS: HEMOGLOBIN 11.3 g/dl (12.0-15.5); MEAN CORPUSCULAR HEMOGLOBIN 29.1 pg (27.0-33.0); MEAN CORPUSCULAR HGB CONC 30.5 g/dl (32.0-36.5); MEAN CORPUSCULAR VOLUME 95.4 fl (80.0-96.0); PLATELET COUNT, AUTOMATED 173 10^3/uL (150-450); RED BLOOD COUNT 3.88 10^6/uL (4.00-5.40); WHITE BLOOD COUNT 6.5 10^3/uL (4.0-10.0)
[2022-10-20 08:42] LABS: CHOLESTEROL RISK RATIO 3.2 (<5); HDL CHOLESTEROL 30.3 MG/DL (>40); LDL CHOLESTEROL 52.1 MG/DL (<100)
== END ==
LOC: SKLAB3 13:54
PROVIDERS: ATTEND Family Medicine
DX: D64.9 Anemia, unspecified (principal); Z79.899 Other long term (current) drug therapy

== ENCOUNTER → 2022-10-27 | Outpatient (REF) | payer MEDICARE, MEDICAID ==
[2022-10-27 07:56] LABS: HEMOGLOBIN 12.5 g/dl (12.0-15.5); MEAN CORPUSCULAR HEMOGLOBIN 29.1 pg (27.0-33.0); MEAN CORPUSCULAR HGB CONC 30.5 g/dl (32.0-36.5); MEAN CORPUSCULAR VOLUME 95.3 fl (80.0-96.0); PLATELET COUNT, AUTOMATED 217 10^3/uL (150-450); WHITE BLOOD COUNT 7.1 10^3/uL (4.0-10.0)
[2022-10-27 08:26] LABS: ALBUMIN 2.9 G/DL (3.2-5.2); ALKALINE PHOSPHATASE 93 U/L (46-116); ALT/SGPT 12 U/L (7.0-40); AST/SGOT 29 U/L (<34); BILIRUBIN,TOTAL 0.5 MG/DL (0.3-1.2); BLOOD UREA NITROGEN 33 MG/DL (9-23); CALCIUM LEVEL 8.5 MG/DL (8.3-10.6); CARBON DIOXIDE LEVEL 29 MMOL/L (20-31); CHLORIDE LEVEL 105 MMOL/L (98-107); CREATININE FOR GFR 0.93 MG/DL (0.55-1.30); GLOMERULAR FILTRATION RATE > 60.0 (>39); GLUCOSE, FASTING 85 MG/DL (74-106); POTASSIUM SERUM 3.7 MMOL/L (3.5-5.1); SODIUM LEVEL 142 MMOL/L (136-145); TOTAL PROTEIN 6.1 G/DL (5.7-8.2)
[2022-10-27 08:31] LABS: ERYTHROCYTE SEDIMENTATION RATE 41 mm/hr (0-30)
== END ==
LOC: SKLAB3 06:58
PROVIDERS: ATTEND Family Medicine
DX: M06.9 Rheumatoid arthritis, unspecified (principal)

== ENCOUNTER → 2022-12-07 | Outpatient (CLI) | payer MEDICARE, MEDICAID | LOC: M CARPUL 14:19 | PROVIDERS: ATTEND Family Medicine | DX: J84.9 Interstitial pulmonary disease, unspecified (principal); M05.79 Rheumatoid arthritis with rheumatoid factor of multiple sites without organ or systems involvement; R76.8 Other specified abnormal immunological findings in serum; Z79.899 Other long term (current) drug therapy; M15.9 Polyosteoarthritis, unspecified ==

== ENCOUNTER → 2022-12-08 | Outpatient (CLI) | payer MEDICARE, MEDICAID | LOC: M RAD 13:35 | PROVIDERS: ATTEND Internal Medicine Rheumatology | DX: M05.79 Rheumatoid arthritis with rheumatoid factor of multiple sites without organ or systems involvement (principal); Z79.899 Other long term (current) drug therapy; M15.9 Polyosteoarthritis, unspecified; J84.10 Pulmonary fibrosis, unspecified; R91.1 Solitary pulmonary nodule; I25.10 Atherosclerotic heart disease of native coronary artery without angina pectoris; K44.9 Diaphragmatic hernia without obstruction or gangrene; K80.20 Calculus of gallbladder without cholecystitis without obstruction ==

== ENCOUNTER → 2023-01-19 | Outpatient (REF) | payer MEDICARE, MEDICAID ==
[2023-01-19 08:06] LABS: ALBUMIN 2.8 G/DL (3.2-5.2); ALKALINE PHOSPHATASE 68 U/L (46-116); ALT/SGPT 12 U/L (7.0-40); AST/SGOT 23 U/L (<34); BILIRUBIN,TOTAL 0.4 MG/DL (0.3-1.2); BLOOD UREA NITROGEN 47 MG/DL (9-23); CALCIUM LEVEL 8.2 MG/DL (8.3-10.6); CARBON DIOXIDE LEVEL 31 MMOL/L (20-31); CHLORIDE LEVEL 106 MMOL/L (98-107); CREATININE FOR GFR 0.91 MG/DL (0.55-1.30); GLOMERULAR FILTRATION RATE > 60.0 (>39); GLUCOSE, FASTING 89 MG/DL (74-106); PHOSPHORUS LEVEL 3.8 MG/DL (2.4-5.1); POTASSIUM SERUM 3.7 MMOL/L (3.5-5.1); PTH INTACT 131.3 PG/ML (18.5-88.0); SODIUM LEVEL 142 MMOL/L (136-145); TOTAL PROTEIN 5.6 G/DL (5.7-8.2)
[2023-01-19 08:07] LABS: TOTAL 25(OH) VITAMIN D 71.6 NG/ML (20.0-100.0)
== END ==
LOC: SKLAB3 11:45
PROVIDERS: ATTEND Nurse Practitioner
DX: M06.9 Rheumatoid arthritis, unspecified (principal); Z79.899 Other long term (current) drug therapy

== ENCOUNTER → 2023-02-01 | Outpatient (REF) | payer MEDICARE, MEDICAID ==
[2023-02-01 12:08] LABS: HEMATOCRIT 42.9 % (36.0-47.0); HEMOGLOBIN 13.3 g/dl (12.0-15.5); MEAN CORPUSCULAR HEMOGLOBIN 28.9 pg (27.0-33.0); MEAN CORPUSCULAR VOLUME 93.3 fl (80.0-96.0); PLATELET COUNT, AUTOMATED 190 10^3/uL (150-450); WHITE BLOOD COUNT 7.9 10^3/uL (4.0-10.0)
[2023-02-01 12:37] LABS: ERYTHROCYTE SEDIMENTATION RATE 31 mm/hr (0-30)
[2023-02-01 12:46] LABS: ALKALINE PHOSPHATASE 79 U/L (46-116); ALT/SGPT 16 U/L (7.0-40); AST/SGOT 32 U/L (<34); BILIRUBIN,TOTAL 0.4 MG/DL (0.3-1.2); BLOOD UREA NITROGEN 50 MG/DL (9-23); CALCIUM LEVEL 9.1 MG/DL (8.3-10.6); CARBON DIOXIDE LEVEL 30 MMOL/L (20-31); CHLORIDE LEVEL 104 MMOL/L (98-107); CREATININE FOR GFR 0.89 MG/DL (0.55-1.30); GLOMERULAR FILTRATION RATE > 60.0 (>39); GLUCOSE, FASTING 98 MG/DL (74-106); SODIUM LEVEL 140 MMOL/L (136-145); TOTAL PROTEIN 6.3 G/DL (5.7-8.2)
== END ==
LOC: SKLAB3 10:08
PROVIDERS: ATTEND Nurse Practitioner
DX: M06.9 Rheumatoid arthritis, unspecified (principal)

== ENCOUNTER → 2023-03-23 | Outpatient (REF) | payer MEDICARE, MEDICAID ==
[~2023-03-23] MED LIST changes: -HYDR200T3 PO; +HYDR200T46 PO
== END ==
LOC: SKLAB3 07:00
PROVIDERS: ATTEND Nurse Practitioner
DX: D64.9 Anemia, unspecified (principal)

== ENCOUNTER → 2023-04-20 | Outpatient (REF) | payer MEDICARE, MEDICAID ==
[2023-04-20 07:13] LABS: BASO % 0.3 % (0.0-1.0); EOS # 0.5 10^3/uL (0.0-0.5); EOS % 8.3 % (0.0-3.0); HEMATOCRIT 38.9 % (36.0-47.0); HEMOGLOBIN 11.8 g/dl (12.0-15.5); LYMPH # 1.1 10^3/uL (1.5-5.0); MEAN CORPUSCULAR HEMOGLOBIN 29.1 pg (27.0-33.0); MEAN CORPUSCULAR HGB CONC 30.3 g/dl (32.0-36.5); MONO # 0.6 10^3/uL (0.0-0.8); MONO % 9.5 % (2.0-8.0); NEUTROPHILS # 3.7 10^3/uL (1.5-8.5); NEUTROPHILS % 62.6 % (36.0-66.0); PLATELET COUNT, AUTOMATED 169 10^3/uL (150-450); RED BLOOD COUNT 4.05 10^6/uL (4.00-5.40); WHITE BLOOD COUNT 5.9 10^3/uL (4.0-10.0)
[2023-04-20 07:45] LABS: CHOLESTEROL RISK RATIO 3.64 (<5); HDL CHOLESTEROL 29.6 MG/DL (>40); LDL CHOLESTEROL 53.2 MG/DL (<100); NON-HDL-C 78.4 MG/DL
[2023-04-20 09:53] LABS: ERYTHROCYTE SEDIMENTATION RATE 28 mm/hr (0-30)
== END ==
LOC: SKLAB3 09:41
PROVIDERS: ATTEND Nurse Practitioner
DX: E78.5 Hyperlipidemia, unspecified (principal)

== ENCOUNTER → 2023-05-04 | Outpatient (REF) | payer MEDICARE, MEDICAID ==
[2023-05-04 07:51] LABS: ALBUMIN 2.8 G/DL (3.2-5.2); ALKALINE PHOSPHATASE 68 U/L (46-116); ALT/SGPT 13 U/L (7.0-40); AST/SGOT 21 U/L (<34); BILIRUBIN,TOTAL 0.6 MG/DL (0.3-1.2); BLOOD UREA NITROGEN 52 MG/DL (9-23); CALCIUM LEVEL 8.7 MG/DL (8.3-10.6); CARBON DIOXIDE LEVEL 31 MMOL/L (20-31); CHLORIDE LEVEL 106 MMOL/L (98-107); CREATININE FOR GFR 0.84 MG/DL (0.55-1.30); GLOMERULAR FILTRATION RATE > 60.0 (>39); GLUCOSE, FASTING 91 MG/DL (74-106); POTASSIUM SERUM 3.2 MMOL/L (3.5-5.1); RHEUMATOID FACTOR QUANT 159.6 IU/ML (<14); SODIUM LEVEL 143 MMOL/L (136-145); TOTAL PROTEIN 5.5 G/DL (5.7-8.2)
== END ==
LOC: SKLAB3 07:24
PROVIDERS: ATTEND Nurse Practitioner
DX: M06.9 Rheumatoid arthritis, unspecified (principal)

== ENCOUNTER → 2023-05-10 | Outpatient (CLI) | payer MEDICARE, MEDICAID | LOC: M CARPUL 10:50 | PROVIDERS: ATTEND Internal Medicine Critical Care Medicine | DX: I27.20 Pulmonary hypertension, unspecified (principal) ==

== ENCOUNTER → 2023-08-17 | Outpatient (REF) | payer MEDICARE, MEDICAID ==
[~2023-08-17] MED LIST changes: -OXYB5TAB10 PO; +OXYB5TAB11 PO
[2023-08-17 06:58] LABS: HEMATOCRIT 40.5 % (36.0-47.0); HEMOGLOBIN 12.5 g/dl (12.0-15.5); MEAN CORPUSCULAR HEMOGLOBIN 29.2 pg (27.0-33.0); MEAN CORPUSCULAR HGB CONC 30.9 g/dl (32.0-36.5); MEAN CORPUSCULAR VOLUME 94.6 fl (80.0-96.0); PLATELET COUNT, AUTOMATED 212 10^3/uL (150-450); RED BLOOD COUNT 4.28 10^6/uL (4.00-5.40); WHITE BLOOD COUNT 7.4 10^3/uL (4.0-10.0)
[2023-08-17 07:57] LABS: ALKALINE PHOSPHATASE 82 U/L (46-116); ALT/SGPT 32 U/L (7.0-40); AST/SGOT 41 U/L (<34); BILIRUBIN,TOTAL 0.5 MG/DL (0.3-1.2); BLOOD UREA NITROGEN 24 MG/DL (9-23); CALCIUM LEVEL 8.8 MG/DL (8.3-10.6); CHLORIDE LEVEL 105 MMOL/L (98-107); CREATININE FOR GFR 0.84 MG/DL (0.55-1.30); GLOMERULAR FILTRATION RATE > 60.0 (>39); GLUCOSE, FASTING 95 MG/DL (74-106); POTASSIUM SERUM 4.2 MMOL/L (3.5-5.1); SODIUM LEVEL 144 MMOL/L (136-145); TOTAL PROTEIN 6.3 G/DL (5.7-8.2)
[2023-08-17 09:05] LABS: CARBON DIOXIDE LEVEL 32 MMOL/L (20-31)
== END ==
LOC: SKLAB3 08:11
PROVIDERS: ATTEND Family Medicine
DX: M06.9 Rheumatoid arthritis, unspecified (principal)

== ENCOUNTER → 2023-08-24 | Outpatient (REF) | payer MEDICARE, MEDICAID ==
[2023-08-24 08:43] LABS: ALBUMIN 3.2 G/DL (3.2-5.2); ALKALINE PHOSPHATASE 87 U/L (46-116); ALT/SGPT 25 U/L (7.0-40); AST/SGOT 36 U/L (<34); BILIRUBIN,TOTAL 0.5 MG/DL (0.3-1.2); BLOOD UREA NITROGEN 24 MG/DL (9-23); CARBON DIOXIDE LEVEL 32 MMOL/L (20-31); CHLORIDE LEVEL 103 MMOL/L (98-107); CREATININE FOR GFR 0.88 MG/DL (0.55-1.30); GLOMERULAR FILTRATION RATE > 60.0 (>39); GLUCOSE, FASTING 87 MG/DL (74-106); POTASSIUM SERUM 3.5 MMOL/L (3.5-5.1); SODIUM LEVEL 139 MMOL/L (136-145); TOTAL PROTEIN 6.6 G/DL (5.7-8.2)
== END ==
LOC: SKLAB3 07:00
PROVIDERS: ATTEND Family Medicine
DX: N18.9 Chronic kidney disease, unspecified (principal)

== ENCOUNTER → 2023-09-21 | Outpatient (REF) | payer MEDICARE, MEDICAID | LOC: SKLAB3 08:43 | PROVIDERS: ATTEND Family Medicine | DX: N18.9 Chronic kidney disease, unspecified (principal) ==

== ENCOUNTER → 2023-10-11 | Outpatient (CLI) | payer MEDICARE, MEDICAID | LOC: M RAD 09:28 | PROVIDERS: ATTEND Nurse Practitioner Adult Health | DX: M25.551 Pain in right hip (principal); M25.521 Pain in right elbow; M50.322 Other cervical disc degeneration at C5-C6 level; M19.021 Primary osteoarthritis, right elbow; M19.011 Primary osteoarthritis, right shoulder; Z91.81 History of falling ==

== ENCOUNTER → 2023-10-11 | Outpatient (REF) | payer MEDICARE, MEDICAID | LOC: SKLAB3 08:36 | PROVIDERS: ATTEND Family Medicine | DX: M16.12 Unilateral primary osteoarthritis, left hip (principal); Z96.641 Presence of right artificial hip joint; W19.XXXA Unspecified fall, initial encounter; Y92.129 Unspecified place in nursing home as the place of occurrence of the external cause ==

== ENCOUNTER → 2023-10-11 | Outpatient (REF) | payer MEDICARE, MEDICAID | LOC: SKLAB3 10:37 | PROVIDERS: ATTEND Family Medicine | DX: Z53.8 Procedure and treatment not carried out for other reasons (principal) ==

== ENCOUNTER → 2023-10-11 | Outpatient (REF) | payer MEDICARE, MEDICAID | LOC: SKLAB3 07:00 | PROVIDERS: ATTEND Family Medicine | DX: R05.9 Cough, unspecified (principal) ==

== ENCOUNTER → 2023-10-11 | Outpatient (REF) | payer MEDICARE, MEDICAID | LOC: SKLAB3 11:29 | PROVIDERS: ATTEND Family Medicine | DX: Z53.8 Procedure and treatment not carried out for other reasons (principal) ==

== ENCOUNTER → 2023-10-19 | Outpatient (REF) | payer MEDICARE, MEDICAID ==
[2023-10-19 11:14] LABS: HEMATOCRIT 38.6 % (36.0-47.0); HEMOGLOBIN 11.9 g/dl (12.0-15.5); MEAN CORPUSCULAR HEMOGLOBIN 29.6 pg (27.0-33.0); MEAN CORPUSCULAR HGB CONC 30.8 g/dl (32.0-36.5); PLATELET COUNT, AUTOMATED 243 10^3/uL (150-450); RED BLOOD COUNT 4.02 10^6/uL (4.00-5.40); WHITE BLOOD COUNT 7.9 10^3/uL (4.0-10.0)
[2023-10-19 11:39] LABS: CHOLESTEROL RISK RATIO 4.28 (<5); HDL CHOLESTEROL 29.9 MG/DL (>40); LDL CHOLESTEROL 64.3 MG/DL (<100); NON-HDL-C 98.1 MG/DL
== END ==
LOC: SKLAB3 10:21
PROVIDERS: ATTEND Family Medicine
DX: N18.9 Chronic kidney disease, unspecified (principal)

== ENCOUNTER 2023-11-08 20:29 | Inpatient (IN) | payer MEDICARE, MEDICAID ==
[~2023-11-08] VITALS: Ht 157.5 cm; Wt 61.0 kg
[~2023-11-08 20:29] MED LIST changes: -ACET-907 PO; -ACET650T15 PO; -ATOR40TA75 PO; -DICL100G10 TOP; -DICL20GE TOP; -DULC10SU2 PR; -ERGO500029 PO; -FAMO40TA3 PO; -FERR1TAB8 PO; -FLEEENE12 PR; -LEUC5TAB PO; -LIDO76.52 TOP; -MILKSUS3 PO; -OXYB5TAB11 PO; +OXYB5TAB14 PO; -PEPT262S PO; -POTA-150 PO; -[UNRECOGNIZED DRUG - CODE] TOP
[2023-11-08 21:00] LABS: BASO % 0.2 % (0.0-1.0); EOS # 0.4 10^3/uL (0.0-0.5); EOS % 5.2 % (0.0-3.0); HEMATOCRIT 36.8 % (36.0-47.0); HEMOGLOBIN 11.4 g/dl (12.0-15.5); LYMPH # 1.1 10^3/uL (1.5-5.0); LYMPH % 13.3 % (24.0-44.0); MEAN CORPUSCULAR VOLUME 96.8 fl (80.0-96.0); MONO # 0.7 10^3/uL (0.0-0.8); MONO % 8.9 % (2.0-8.0); NEUTROPHILS # 5.9 10^3/uL (1.5-8.5); NEUTROPHILS % 72.2 % (36.0-66.0); PLATELET COUNT, AUTOMATED 233 10^3/uL (150-450); WHITE BLOOD COUNT 8.1 10^3/uL (4.0-10.0)
[2023-11-08 21:12] LABS: INR 1.08; PROTHROMBIN TIME 13.7 SECONDS (12.5-14.5)
[2023-11-08 21:13] LABS: PARTIAL THROMBOPLASTIN TIME 32.9 SECONDS (24.8-34.2)
[2023-11-08] MEDS: METOPROLOL 5 MG/5 ML VIAL IV SCH (21:56)
[2023-11-08] MEDS ORDERED: DICL100G10 TOP (22:48)
[2023-11-08] MEDS ORDERED: ERGO500029 PO (22:48)
[2023-11-08] MEDS ORDERED: ZOLO100T PO (22:48)
[2023-11-08] MEDS ORDERED: DICL20GE TOP (22:48)
[2023-11-08] MEDS ORDERED: ATOR40TA75 PO (22:48)
[2023-11-08] MEDS ORDERED: LIDO76.52 TOP (22:48)
[2023-11-08] MEDS ORDERED: ACET650T15 PO (22:48)
[2023-11-08] MEDS ORDERED: FERR1TAB8 PO (22:48)
[2023-11-08] MEDS ORDERED: FLEEENE12 PR (22:48)
[2023-11-08] MEDS ORDERED: FOLI1TAB11 PO (22:48)
[2023-11-08] MEDS ORDERED: DULC10SU2 PR (22:48)
[2023-11-08] MEDS ORDERED: FAMO40TA3 PO (22:48)
[2023-11-08] MEDS ORDERED: POTA-150 PO (22:48)
[2023-11-08] MEDS ORDERED: PEPT262S PO (22:48)
[2023-11-08] MEDS ORDERED: ACET-907 PO (22:48)
[2023-11-08] MEDS ORDERED: MILKSUS3 PO (22:48)
[2023-11-08] MEDS ORDERED: LEUC5TAB PO (22:48)
[2023-11-08] MEDS ORDERED: HOME MED LIST COMPLETE! XX SCH (22:50)
[2023-11-08] MEDS: DIGOXIN INJ 0.5 MG/2 ML AMP IV STA (23:11)
[2023-11-08 23:17] LABS: CALCIUM LEVEL 8.1 MG/DL (8.3-10.6); CARBON DIOXIDE LEVEL 31 MMOL/L (20-31); CHLORIDE LEVEL 104 MMOL/L (98-107); CK-MB VALUE MASS 1.4 NG/ML (<3.6); CPK CREATINE PHOSPHOKINASE 68 U/L (34-145); CREATININE FOR GFR 0.89 MG/DL (0.55-1.30); FREE T4 0.76 NG/DL (0.89-1.76); GLOMERULAR FILTRATION RATE > 60.0 (>39); GLUCOSE, FASTING 99 MG/DL (74-106); MAGNESIUM LEVEL 2.2 MG/DL (1.8-2.4); MB/CK RELATIVE INDEX 2.05 (< OR =4); PHOSPHORUS LEVEL 4.3 MG/DL (2.4-5.1); POTASSIUM SERUM 4.3 MMOL/L (3.5-5.1); SODIUM LEVEL 139 MMOL/L (136-145); THYROID STIMULATING HORMONE 1.664 uIU/ML (0.55-4.78)
[2023-11-08] MEDS: DIGOXIN 0.125 MG TAB PO ONE (23:19)
[2023-11-08 23:33] LABS: BLOOD UREA NITROGEN 34 MG/DL (9-23)
[2023-11-08] MEDS ORDERED: [UNRECOGNIZED DRUG - CODE] TOP (23:38)
[2023-11-08] MEDS ORDERED: ALBUTEROL 90 MCG/ACT 8GM HFA INHALER INH PRN (23:45)
[2023-11-08] MEDS ORDERED: BISACODYL 10MG SUPP PR PRN (23:45)
[2023-11-09] VITALS (9 sets, daily range): BP systolic 94–137; BP diastolic 64–80; TEMP 96.8–98.8; O2SAT 95–99
[2023-11-09] MEDS: APIXABAN 5 MG TAB (ELIQUIS) PO SCH (00:43)
[2023-11-09] MEDS: methylPREDNISolone 40MG 1ML VIAL IV ONE (03:55)
[2023-11-09] MEDS: dilTIAZem 25MG/5ML VIAL IV STA (04:40)
[2023-11-09 06:44] LABS: BLOOD UREA NITROGEN 30 MG/DL (9-23); CALCIUM LEVEL 8.1 MG/DL (8.3-10.6); CARBON DIOXIDE LEVEL 32 MMOL/L (20-31); CHLORIDE LEVEL 106 MMOL/L (98-107); CREATININE FOR GFR 0.87 MG/DL (0.55-1.30); GLOMERULAR FILTRATION RATE > 60.0 (>39); GLUCOSE, FASTING 91 MG/DL (74-106); MAGNESIUM LEVEL 2.1 MG/DL (1.8-2.4); SODIUM LEVEL 143 MMOL/L (136-145)
[2023-11-09] MEDS: ACETAMINOPHEN 650MG ER TAB (TYLENOL ARTHRITIS) PO SCH (08:19)
[2023-11-09] MEDS: ATORVASTATIN 20 MG TAB PO SCH (08:20)
[2023-11-09] MEDS: FOLIC ACID 1MG TAB PO SCH (08:20)
[2023-11-09] MEDS: FAMOTIDINE 20 MG TAB PO SCH (08:20)
[2023-11-09] MEDS: oxyBUTYnin 5 MG TAB PO SCH (08:20)
[2023-11-09] MEDS: GABAPENTIN 100 MG CAP PO SCH (08:20)
[2023-11-09] MEDS: FERROUS SULFATE 325MG TAB PO SCH (08:20)
[2023-11-09] MEDS: predniSONE 20 MG TAB PO SCH (08:20)
[2023-11-09] MEDS: atenoloL 50 MG TAB PO SCH (08:22)
[2023-11-09] MEDS ORDERED: FUROSEMIDE 40 MG TAB PO SCH (09:00)
[2023-11-09] MEDS ORDERED: METOPROLOL 5 MG/5 ML VIAL IV SCH (12:10)
[2023-11-09] MEDS: MIDODRINE 5 MG TAB PO SCH (12:15)
[2023-11-09] MEDS: atenoloL 50 MG TAB PO ONE (13:08)
[2023-11-09] MEDS: DIGOXIN INJ 0.5 MG/2 ML AMP IV ONE (13:09)
[2023-11-09] MEDS: SERTRALINE HCL 50 MG TAB PO SCH (21:08)
[2023-11-09] MEDS: METOPROLOL 5 MG/5 ML VIAL IV SCH (22:18)
[2023-11-10] VITALS (33 sets, daily range): BP systolic 87–140; BP diastolic 53–80; TEMP 97.2–98.2; O2SAT 92–98
[2023-11-10] MEDS: dilTIAZem 25MG/5ML VIAL IV STA (00:33)
[2023-11-10] MEDS: diltiaZEM 125 MG in NS 100 ML IV SCH ×2 (00:40→02:45)
[2023-11-10] MEDS ORDERED: methylPREDNISolone 40MG 1ML VIAL IV ONE (01:00)
[2023-11-10] MEDS: atenoloL 50 MG TAB PO ONE ×2 (08:37→19:03)
[2023-11-10] MEDS: DIGOXIN INJ 0.5 MG/2 ML AMP IV ONE (08:47)
[2023-11-10] MEDS: MIDODRINE 5 MG TAB PO ONE ×2 (08:47→12:31)
[2023-11-10] MEDS: atenoloL 25 MG TAB PO ONE (14:19)
[2023-11-10] MEDS: DIGOXIN INJ 0.5 MG/2 ML AMP IV SCH (15:10)
[2023-11-10] MEDS: MIDODRINE 5 MG TAB PO SCH (16:31)
[2023-11-10] MEDS: dilTIAZem 30 MG TAB PO SCH (16:33)
[2023-11-10] MEDS ORDERED: atenoloL 25 MG TAB PO SCH (21:00)
[2023-11-10] MEDS ORDERED: atenoloL 50 MG TAB PO SCH (21:00)
[2023-11-11] VITALS (10 sets, daily range): BP systolic 100–128; BP diastolic 57–81; TEMP 97.4–98.5; O2SAT 92–98
[2023-11-11] MEDS: DIGOXIN 0.125 MG TAB PO SCH (09:14)
[2023-11-11] MEDS: atenoloL 50 MG TAB PO SCH (09:15)
[2023-11-11] MEDS: FUROSEMIDE 40MG/4ML VIAL IV ONE (11:05)
[2023-11-11] MEDS: MIDODRINE 5 MG TAB PO ONE (12:59)
[2023-11-12 03:33] VITALS: BP 134/69; TEMP 97.5; O2SAT 98
[2023-11-12 08:00] VITALS: BP 126/69; TEMP 97.3; O2SAT 98
[2023-11-12] MEDS: DIGOXIN 0.125 MG TAB PO SCH (09:20)
[2023-11-12] MEDS: FUROSEMIDE 40 MG TAB PO SCH (09:21)
[2023-11-12 12:00] VITALS: BP 138/70; TEMP 97; O2SAT 96
[2023-11-12 14:20] LABS: BASO % 0.2 % (0.0-1.0); EOS % 0.1 % (0.0-3.0); HEMATOCRIT 38.1 % (36.0-47.0); HEMOGLOBIN 11.9 g/dl (12.0-15.5); LYMPH # 0.6 10^3/uL (1.5-5.0); LYMPH % 5.9 % (24.0-44.0); MEAN CORPUSCULAR HEMOGLOBIN 30.1 pg (27.0-33.0); MEAN CORPUSCULAR HGB CONC 31.2 g/dl (32.0-36.5); MEAN CORPUSCULAR VOLUME 96.2 fl (80.0-96.0); MONO # 0.2 10^3/uL (0.0-0.8); NEUTROPHILS # 9.2 10^3/uL (1.5-8.5); NEUTROPHILS % 91.5 % (36.0-66.0); PLATELET COUNT, AUTOMATED 274 10^3/uL (150-450); RED BLOOD COUNT 3.96 10^6/uL (4.00-5.40); WHITE BLOOD COUNT 10.1 10^3/uL (4.0-10.0)
[2023-11-12 14:45] LABS: BLOOD UREA NITROGEN 28 MG/DL (9-23); CALCIUM LEVEL 8.5 MG/DL (8.3-10.6); CARBON DIOXIDE LEVEL 33 MMOL/L (20-31); CHLORIDE LEVEL 103 MMOL/L (98-107); CREATININE FOR GFR 0.92 MG/DL (0.55-1.30); GLOMERULAR FILTRATION RATE > 60.0 (>39); GLUCOSE, FASTING 152 MG/DL (74-106); MAGNESIUM LEVEL 2.2 MG/DL (1.8-2.4); POTASSIUM SERUM 4.2 MMOL/L (3.5-5.1); SODIUM LEVEL 139 MMOL/L (136-145)
[2023-11-12 15:46] VITALS: BP 124/72
[2023-11-12] MEDS ORDERED: DIGOXIN INJ 0.5 MG/2 ML AMP IV STA (18:29)
[2023-11-12] MEDS: DIGOXIN INJ 0.5 MG/2 ML AMP IV STA (18:48)
[2023-11-12] MEDS: MIDODRINE 5 MG TAB PO STA (18:49)
[2023-11-12] MEDS: atenoloL 50 MG TAB PO ONE (18:50)
[2023-11-12 20:50] VITALS: BP 121/65; TEMP 98.6; O2SAT 96
[2023-11-12] MEDS ORDERED: dilTIAZem 120MG **CD** CAPSULE PO SCH (21:00)
[2023-11-12] MEDS: dilTIAZem 30 MG TAB PO SCH (21:07)
[2023-11-13] VITALS (7 sets, daily range): BP systolic 102–142; BP diastolic 57–82; TEMP 97.2–98.6; O2SAT 96–97
[2023-11-13] MEDS ORDERED: dilTIAZem 120MG **CD** CAPSULE PO ONE (07:55)
[2023-11-13] MEDS ORDERED: MIDODRINE 5 MG TAB PO SCH ×2 (08:00)
[2023-11-13] MEDS: atenoloL 50 MG TAB PO ONE (08:28)
[2023-11-13] MEDS: FUROSEMIDE 40 MG TAB PO ONE (08:29)
[2023-11-13] MEDS ORDERED: atenoloL 50 MG TAB PO SCH (09:00)
[2023-11-13] MEDS: dilTIAZem 30 MG TAB PO SCH (12:00)
[2023-11-13] MEDS: atenoloL 50 MG TAB PO SCH (20:11)
[2023-11-14] MEDS: ACETAMINOPHEN TAB 650MG DOSE (2X325MG) PO PRN (00:19)
[2023-11-14 03:29] VITALS: BP 120/74; TEMP 97.9; O2SAT 97
[2023-11-14 08:02] VITALS: BP 92/57; TEMP 97.5; O2SAT 95
[2023-11-14] MEDS: FLUDROCORTISONE ACETATE 0.1 MG TAB PO SCH (09:33)
[2023-11-14] MEDS: MIDODRINE 5 MG TAB PO PRN (09:33)
[2023-11-14 10:46] VITALS: BP 112/74; TEMP 98.2; O2SAT 96
[2023-11-14 16:00] VITALS: BP 126/97; TEMP 96.7; O2SAT 95
[2023-11-14] MEDS: DIGOXIN INJ 0.5 MG/2 ML AMP IV STA (16:29)
[2023-11-14] MEDS: atenoloL 25 MG TAB PO ONE (16:29)
[2023-11-14 18:03] VITALS: BP 102/70
[2023-11-14 19:59] VITALS: BP 125/68; TEMP 98; O2SAT 96
[2023-11-15] VITALS (8 sets, daily range): BP systolic 101–120; BP diastolic 56–72; TEMP 96.8–98.6; O2SAT 93–98
[2023-11-15 07:58] LABS: IONIZED CALCIUM 3.7 MG/DL (4.5-5.3)
[2023-11-15 08:05] LABS: BASO % 0.2 % (0.0-1.0); EOS # 0.4 10^3/uL (0.0-0.5); EOS % 4.1 % (0.0-3.0); HEMATOCRIT 40.6 % (36.0-47.0); HEMOGLOBIN 12.6 g/dl (12.0-15.5); LYMPH # 1.4 10^3/uL (1.5-5.0); LYMPH % 14.8 % (24.0-44.0); MEAN CORPUSCULAR HEMOGLOBIN 29.2 pg (27.0-33.0); MEAN CORPUSCULAR VOLUME 94.2 fl (80.0-96.0); MONO # 0.8 10^3/uL (0.0-0.8); MONO % 8.3 % (2.0-8.0); NEUTROPHILS # 6.8 10^3/uL (1.5-8.5); PLATELET COUNT, AUTOMATED 203 10^3/uL (150-450); RED BLOOD COUNT 4.31 10^6/uL (4.00-5.40); WHITE BLOOD COUNT 9.5 10^3/uL (4.0-10.0)
[2023-11-15 08:35] LABS: BLOOD UREA NITROGEN 32 MG/DL (9-23); CALCIUM LEVEL 8.1 MG/DL (8.3-10.6); CARBON DIOXIDE LEVEL 33 MMOL/L (20-31); CHLORIDE LEVEL 105 MMOL/L (98-107); CREATININE FOR GFR 0.82 MG/DL (0.55-1.30); GLOMERULAR FILTRATION RATE > 60.0 (>39); GLUCOSE, FASTING 88 MG/DL (74-106); MAGNESIUM LEVEL 2.3 MG/DL (1.8-2.4); POTASSIUM SERUM 4.2 MMOL/L (3.5-5.1); SODIUM LEVEL 140 MMOL/L (136-145)
[2023-11-16] VITALS (7 sets, daily range): BP systolic 98–113; BP diastolic 59–70; TEMP 96.6–98.4; O2SAT 96–98
[2023-11-16] MEDS: dilTIAZem 120MG **CD** CAPSULE PO SCH (09:00)
[2023-11-16 16:06] LABS: PROCALCITONIN 0.13 ng/ml
[2023-11-16] MEDS: cefTRIAXone SOD 1 GM in D5W MINI-BAG PLUS 50 ML IV SCH (17:23)
[2023-11-16] MEDS: atenoloL 50 MG TAB PO SCH (20:59)
[2023-11-17] VITALS (9 sets, daily range): BP systolic 96–129; BP diastolic 55–74; TEMP 96.7–98.1; O2SAT 84–98
[2023-11-17 05:16] LABS: HEMATOCRIT 38.7 % (36.0-47.0); HEMOGLOBIN 11.9 g/dl (12.0-15.5); MEAN CORPUSCULAR HEMOGLOBIN 29.6 pg (27.0-33.0); MEAN CORPUSCULAR HGB CONC 30.7 g/dl (32.0-36.5); MEAN CORPUSCULAR VOLUME 96.3 fl (80.0-96.0); PLATELET COUNT, AUTOMATED 195 10^3/uL (150-450); RED BLOOD COUNT 4.02 10^6/uL (4.00-5.40); WHITE BLOOD COUNT 7.8 10^3/uL (4.0-10.0)
[2023-11-17 05:35] LABS: BLOOD UREA NITROGEN 25 MG/DL (9-23); CALCIUM LEVEL 8.2 MG/DL (8.3-10.6); CARBON DIOXIDE LEVEL 35 MMOL/L (20-31); CHLORIDE LEVEL 106 MMOL/L (98-107); CREATININE FOR GFR 0.81 MG/DL (0.55-1.30); GLOMERULAR FILTRATION RATE > 60.0 (>39); GLUCOSE, FASTING 94 MG/DL (74-106); POTASSIUM SERUM 4.1 MMOL/L (3.5-5.1); SODIUM LEVEL 141 MMOL/L (136-145)
[2023-11-18 06:29] VITALS: BP 108/63; TEMP 97.5; O2SAT 95
[2023-11-18 08:58] VITALS: BP 90/60
[2023-11-18] MEDS ORDERED: DIGO0.123 PO (10:13)
[2023-11-18] MEDS ORDERED: CARD120C3 PO (10:13)
[2023-11-18] MEDS ORDERED: ELIQ5TAB PO (10:13)
[2023-11-18] MEDS ORDERED: CEFD1CAP9 PO (10:20)
[2023-11-18] MEDS ORDERED: MIDO5TA PO (10:22)
[2023-11-18 10:39] VITALS: BP 105/62
== END 2023-11-18 12:25 | DRG 308 ==
LOC: M ED 20:29 → M ED INP 23:44 → M PCU 11-09 01:31 → M MSPAV 11-17 15:42
PROVIDERS: ADMIT Internal Medicine; ATTEND Internal Medicine
PROC: B246ZZZ Ultrasonography of Right and Left Heart (ICD-10-PCS; principal; 2023-11-11)
DX: I48.92 Unspecified atrial flutter (principal); I50.33 Acute on chronic diastolic (congestive) heart failure; J84.9 Interstitial pulmonary disease, unspecified; J96.11 Chronic respiratory failure with hypoxia; N39.0 Urinary tract infection, site not specified; M06.9 Rheumatoid arthritis, unspecified; Z66 Do not resuscitate; I11.0 Hypertensive heart disease with heart failure; F03.90 Unspecified dementia, unspecified severity, without behavioral disturbance, psychotic disturbance, mood disturbance, and anxiety; I48.91 Unspecified atrial fibrillation; I08.1 Rheumatic disorders of both mitral and tricuspid valves; I27.20 Pulmonary hypertension, unspecified; K44.9 Diaphragmatic hernia without obstruction or gangrene; E78.00 Pure hypercholesterolemia, unspecified; N32.81 Overactive bladder; F32.A Depression, unspecified; Z79.899 Other long term (current) drug therapy; Z20.822 Contact with and (suspected) exposure to COVID-19; Z95.2 Presence of prosthetic heart valve; Z99.81 Dependence on supplemental oxygen; I95.89 Other hypotension; T44.7X5A Adverse effect of beta-adrenoreceptor antagonists, initial encounter

== ENCOUNTER → 2023-11-08 | Outpatient (REF) | payer MEDICARE, MEDICAID ==
[~2023-11-08] MED LIST changes: +ACET-907 PO; +ACET650T15 PO; +ATOR40TA75 PO; +DICL100G10 TOP; +DICL20GE TOP; +DULC10SU2 PR; +ERGO500029 PO; +FAMO40TA3 PO; +FERR1TAB8 PO; +FLEEENE12 PR; -LEFL1TAB4; -LEFL1TAB4 PO; +LEFL20TA15; +LEFL20TA15 PO; +LEUC5TAB PO; +LIDO76.52 TOP; +MILKSUS3 PO; +PEPT262S PO; +POTA-150 PO; +[UNRECOGNIZED DRUG - CODE] TOP
[2023-11-08 08:25] LABS: BASO % 0.3 % (0.0-1.0); EOS # 0.5 10^3/uL (0.0-0.5); EOS % 6.6 % (0.0-3.0); HEMATOCRIT 35.9 % (36.0-47.0); HEMOGLOBIN 10.9 g/dl (12.0-15.5); LYMPH # 0.9 10^3/uL (1.5-5.0); MEAN CORPUSCULAR HEMOGLOBIN 29.4 pg (27.0-33.0); MEAN CORPUSCULAR HGB CONC 30.4 g/dl (32.0-36.5); MEAN CORPUSCULAR VOLUME 96.8 fl (80.0-96.0); MONO # 0.7 10^3/uL (0.0-0.8); MONO % 9.1 % (2.0-8.0); NEUTROPHILS # 5.1 10^3/uL (1.5-8.5); NEUTROPHILS % 70.9 % (36.0-66.0); PLATELET COUNT, AUTOMATED 207 10^3/uL (150-450); RED BLOOD COUNT 3.71 10^6/uL (4.00-5.40); WHITE BLOOD COUNT 7.2 10^3/uL (4.0-10.0)
[2023-11-08 08:30] LABS: ERYTHROCYTE SEDIMENTATION RATE 47 mm/hr (0-30)
[2023-11-08 08:53] LABS: ALBUMIN 2.6 G/DL (3.2-5.2); ALKALINE PHOSPHATASE 91 U/L (46-116); ALT/SGPT 18 U/L (7.0-40); AST/SGOT 24 U/L (<34); BILIRUBIN,TOTAL 0.5 MG/DL (0.3-1.2); BLOOD UREA NITROGEN 35 MG/DL (9-23); CALCIUM LEVEL 8.4 MG/DL (8.3-10.6); CARBON DIOXIDE LEVEL 32 MMOL/L (20-31); CHLORIDE LEVEL 107 MMOL/L (98-107); CREATININE FOR GFR 0.95 MG/DL (0.55-1.30); GLOMERULAR FILTRATION RATE > 60.0 (>39); GLUCOSE, FASTING 96 MG/DL (74-106); POTASSIUM SERUM 4.1 MMOL/L (3.5-5.1); SODIUM LEVEL 144 MMOL/L (136-145); TOTAL PROTEIN 5.7 G/DL (5.7-8.2)
== END ==
LOC: SKLAB3 07:28
PROVIDERS: ATTEND Family Medicine
DX: M06.9 Rheumatoid arthritis, unspecified (principal)

== ENCOUNTER → 2023-11-08 | Outpatient (REF) | payer MEDICARE, MEDICAID | LOC: SKLAB3 13:23 | PROVIDERS: ATTEND Family Medicine | DX: I48.92 Unspecified atrial flutter (principal) ==

== ENCOUNTER → 2023-12-04 | Outpatient (REF) ==
[~2023-12-04] MED LIST changes: +ACET-907 PO; +ACET650T15 PO; +ATOR40TA75 PO; +CARD120C3 PO; +CEFD1CAP9 PO; +DICL100G10 TOP; +DICL20GE TOP; +DIGO0.123 PO; +DULC10SU2 PR; +ELIQ5TAB PO; +ERGO500029 PO; +FAMO40TA3 PO; +FERR1TAB8 PO; +FLEEENE12 PR; +LEUC5TAB PO; +LIDO76.52 TOP; +MIDO5TA PO; +MILKSUS3 PO; +PEPT262S PO; +POTA-150 PO; +[UNRECOGNIZED DRUG - CODE] TOP
== END ==
LOC: SKLAB2 07:00
PROVIDERS: ATTEND Family Medicine
DX: R53.83 Other fatigue (principal); I48.91 Unspecified atrial fibrillation

== ENCOUNTER → 2023-12-04 | Outpatient (CLI) | payer MEDICARE, MEDICAID ==
[2023-12-04 15:23] LABS: HEMATOCRIT 31.9 % (36.0-47.0); HEMOGLOBIN 9.6 g/dl (12.0-15.5); MEAN CORPUSCULAR HEMOGLOBIN 29.9 pg (27.0-33.0); MEAN CORPUSCULAR HGB CONC 30.1 g/dl (32.0-36.5); MEAN CORPUSCULAR VOLUME 99.4 fl (80.0-96.0); PLATELET COUNT, AUTOMATED 227 10^3/uL (150-450); RED BLOOD COUNT 3.21 10^6/uL (4.00-5.40); WHITE BLOOD COUNT 8.2 10^3/uL (4.0-10.0)
[2023-12-04 15:45] LABS: CALCIUM LEVEL 8.1 MG/DL (8.3-10.6); CREATININE FOR GFR 1.24 MG/DL (0.55-1.30); DIGOXIN LEVEL 2.3 NG/ML (0.8-2.0); GLOMERULAR FILTRATION RATE 44.4 (>39); POTASSIUM SERUM 4.6 MMOL/L (3.5-5.1)
== END ==
LOC: SKLAB3 13:23 → M RAD 13:23
PROVIDERS: ATTEND Family Medicine
DX: R53.83 Other fatigue (principal); I48.91 Unspecified atrial fibrillation; I51.7 Cardiomegaly; I27.20 Pulmonary hypertension, unspecified; J90 Pleural effusion, not elsewhere classified

== ENCOUNTER → 2023-12-13 | Outpatient (REF) | payer MEDICARE, MEDICAID | LOC: SKLAB3 10:15 | PROVIDERS: ATTEND Family Medicine | DX: R09.89 Other specified symptoms and signs involving the circulatory and respiratory systems (principal) ==

== ENCOUNTER → 2023-12-14 | Outpatient (REF) | payer MEDICARE, MEDICAID | LOC: SKLAB3 09:24 | PROVIDERS: ATTEND Family Medicine | DX: Z79.899 Other long term (current) drug therapy (principal); I50.9 Heart failure, unspecified ==

== ENCOUNTER → 2023-12-15 | Outpatient (REF) | payer MEDICARE, MEDICAID ==
[2023-12-15 08:07] LABS: BLOOD UREA NITROGEN 31 MG/DL (9-23); CALCIUM LEVEL 8.2 MG/DL (8.3-10.6); CARBON DIOXIDE LEVEL 30 MMOL/L (20-31); CHLORIDE LEVEL 106 MMOL/L (98-107); CREATININE FOR GFR 0.92 MG/DL (0.55-1.30); GLOMERULAR FILTRATION RATE > 60.0 (>39); GLUCOSE, FASTING 91 MG/DL (74-106); POTASSIUM SERUM 3.8 MMOL/L (3.5-5.1); SODIUM LEVEL 144 MMOL/L (136-145)
== END ==
LOC: SKLAB3 09:17
PROVIDERS: ATTEND Nurse Practitioner
DX: Z79.899 Other long term (current) drug therapy (principal)

== ENCOUNTER → 2023-12-22 | Outpatient (REF) | payer MEDICARE, MEDICAID ==
[2023-12-22 12:27] LABS: CALCIUM LEVEL 8.4 MG/DL (8.3-10.6); CREATININE FOR GFR 1.05 MG/DL (0.55-1.30); GLOMERULAR FILTRATION RATE 53.8 (>39)
== END ==
LOC: SKLAB3 09:23
PROVIDERS: ATTEND Nurse Practitioner Family
DX: Z79.899 Other long term (current) drug therapy (principal)

== ENCOUNTER → 2023-12-26 | Outpatient (REF) | payer MEDICARE, MEDICAID ==
[2023-12-26 16:05] LABS: HEMATOCRIT 32.1 % (36.0-47.0); HEMOGLOBIN 9.7 g/dl (12.0-15.5); MEAN CORPUSCULAR HEMOGLOBIN 29.7 pg (27.0-33.0); MEAN CORPUSCULAR HGB CONC 30.2 g/dl (32.0-36.5); MEAN CORPUSCULAR VOLUME 98.2 fl (80.0-96.0); PLATELET COUNT, AUTOMATED 197 10^3/uL (150-450); RED BLOOD COUNT 3.27 10^6/uL (4.00-5.40)
[2023-12-26 16:36] LABS: BLOOD UREA NITROGEN 29 MG/DL (9-23); CALCIUM LEVEL 8.1 MG/DL (8.3-10.6); CARBON DIOXIDE LEVEL 34 MMOL/L (20-31); CHLORIDE LEVEL 108 MMOL/L (98-107); CREATININE FOR GFR 0.93 MG/DL (0.55-1.30); GLOMERULAR FILTRATION RATE > 60.0 (>39); GLUCOSE, FASTING 102 MG/DL (74-106); SODIUM LEVEL 142 MMOL/L (136-145)
== END ==
LOC: SKLAB3 15:24
PROVIDERS: ATTEND Family Medicine
DX: R09.89 Other specified symptoms and signs involving the circulatory and respiratory systems (principal)

== ENCOUNTER → 2023-12-29 | Outpatient (REF) | payer MEDICARE, MEDICAID ==
[2023-12-29 14:42] LABS: BLOOD UREA NITROGEN 30 MG/DL (9-23); CARBON DIOXIDE LEVEL 32 MMOL/L (20-31); CHLORIDE LEVEL 106 MMOL/L (98-107); CREATININE FOR GFR 0.82 MG/DL (0.55-1.30); GLOMERULAR FILTRATION RATE > 60.0 (>39); GLUCOSE, FASTING 124 MG/DL (74-106); SODIUM LEVEL 142 MMOL/L (136-145)
== END ==
LOC: SKLAB3 09:38
PROVIDERS: ATTEND Nurse Practitioner
DX: Z79.899 Other long term (current) drug therapy (principal)

== ENCOUNTER → 2024-01-03 | Outpatient (REF) | payer MEDICARE, MEDICAID ==
[2024-01-03 09:29] LABS: BLOOD UREA NITROGEN 29 MG/DL (9-23); CALCIUM LEVEL 8.8 MG/DL (8.3-10.6); CARBON DIOXIDE LEVEL 27 MMOL/L (20-31); CHLORIDE LEVEL 104 MMOL/L (98-107); CREATININE FOR GFR 0.85 MG/DL (0.55-1.30); GLOMERULAR FILTRATION RATE > 60.0 (>39); GLUCOSE, FASTING 102 MG/DL (74-106); POTASSIUM SERUM 4.6 MMOL/L (3.5-5.1); SODIUM LEVEL 141 MMOL/L (136-145)
== END ==
LOC: SKLAB3 07:00
PROVIDERS: ATTEND Nurse Practitioner
DX: Z79.899 Other long term (current) drug therapy (principal)